=== PATIENT | male | born 1960 | race Caucasian/White ===

== ENCOUNTER → 2020-11-05 | Outpatient (CLI) | payer SELFPAY ==
[2020-11-05 20:09] LABS: African American GFR (CKD) 74.7 (60.0-200.0); Albumin 4.9 g/dL (3.80-4.90); Albumin/Globulin Ratio 2.04 (1.60-3.17); Anion Gap 8.4 mmol/L (4.00-12.00); BUN/Creat Ratio 10.83 Ratio (12.00-20.00); Calcium 9.9 mg/dL (8.7-10.3); Carbon Dioxide 31.6 mmol/L (21.6-31.8); Chol/HDL Ratio 3.81; Globulin 2.4 g/dL (1.6-3.3); LDL Cholesterol,Calculated 76.8 mg/dL (0.0-131.0); Non-African American GFR(CKD) 64.4 (60.0-200.0); Potassium 3.9 mmol/L (3.5-5.5); Total Bilirubin 0.6 mg/dL (0.2-1.2); Total Protein 7.3 g/dL (6.2-8.2); VLDL Calculation 41.2 mg/dL (5.00-40.00)
== END | disposition home or self-care (01) ==
LOC: LABWHC1 11:07 → MERGE 11:07
PROVIDERS: ATTEND Internal Medicine Interventional Cardiology
DX: E78.2 Mixed hyperlipidemia (principal)
CPT/HCPCS: 36415; 80053; 80061

== ENCOUNTER → 2021-05-24 | Outpatient (CLI) | payer SELFPAY ==
--- NOTE | 2021-05-24 09:15 | XR ---
EXAMINATION TYPE: XR chest 2V DATE OF EXAM: 05/24/2021 COMPARISON: NONE TECHNIQUE: PA and lateral views submitted. HISTORY: Shortness of breath FINDINGS: The lungs are clear and there is no pneumothorax, pleural effusion, or focal pneumonia. Hyperinflat ion. Hypertrophic and degenerative changes spine. Slightly coarsened interstitium. IMPRESSION: 1. COPD correlate for bronchitis or interstitial pneumonitis..
[2021-05-24 11:08] LABS: ALT 20 U/L (4-49); AST 24 U/L (17-59); African American GFR (CKD) >90 (>60 ml/min/1.73 sqM); Albumin 4.4 g/dL (3.5-5.0); Alkaline Phosphatase 126 U/L (38-126); Anion Gap 8 mmol/L; Blood Urea Nitrogen 11 mg/dL (9-20); Calcium 10.3 mg/dL (8.4-10.2); Carbon Dioxide 38 mmol/L (22-30); Chloride 89 mmol/L (98-107); Glucose 112 mg/dL (74-99); Non-African American GFR(CKD) 81 (>60 ml/min/1.73 sqM); Potassium 3.6 mmol/L (3.5-5.1); Sodium 135 mmol/L (137-145); Total Bilirubin 0.8 mg/dL (0.2-1.3); Total Protein 7.4 g/dL (6.3-8.2)
[2021-05-24 18:36] LABS: Cholesterol 128 mg/dL (0-200); LDL Cholesterol,Calculated 59.4 mg/dL (0.0-131.0)
== END | disposition home or self-care (01) ==
LOC: RADXRMAIN 08:29
PROVIDERS: ATTEND Internal Medicine Interventional Cardiology
DX: J44.9 Chronic obstructive pulmonary disease, unspecified (principal)
CPT/HCPCS: 71046; 80053; 80061

== ENCOUNTER → 2022-01-04 | Outpatient (CLI) | payer SELFPAY ==
[2022-01-04 14:35] LABS: ALT 22 U/L (10-49); AST 18 U/L (14-35); African American GFR (CKD) 82.4 (60.0-200.0); Albumin 4.4 g/dL (3.8-4.9); Albumin/Globulin Ratio 1.65 (1.60-3.17); Alkaline Phosphatase 103 U/L (41-126); BUN/Creat Ratio 8.95 Ratio (12.00-20.00); Blood Urea Nitrogen 9.9 mg/dL (9.0-27.0); Calcium 9.9 mg/dL (8.7-10.3); Carbon Dioxide 27.9 mmol/L (20.0-27.5); Chloride 100 mmol/L (96-109); Chol/HDL Ratio 3.61 Ratio; Globulin 2.7 g/dL (1.6-3.3); Glucose 107 mg/dL (70-110); LDL Cholesterol,Calculated 63.2 mg/dL (0.0-131.0); Non-African American GFR(CKD) 71.1 (60.0-200.0); Potassium 3.4 mmol/L (3.5-5.5); Sodium 139 mmol/L (135-145); Total Protein 7.1 g/dL (6.2-8.2)
== END | disposition home or self-care (01) ==
LOC: LABWHC1 09:12
PROVIDERS: ATTEND Nurse Practitioner Adult Health
DX: I10 Essential (primary) hypertension (principal); E78.2 Mixed hyperlipidemia
CPT/HCPCS: 36415; 80053; 80061

== ENCOUNTER → 2023-01-07 | Outpatient (CLI) | payer SELFPAY ==
[2023-01-07 17:35] LABS: ALT 39 U/L (10-49); AST 26 U/L (14-35); African American GFR (CKD) 73.6 (60.0-200.0); Albumin 4.4 g/dL (3.8-4.9); Albumin/Globulin Ratio 1.47 (1.60-3.17); Alkaline Phosphatase 121 U/L (41-126); BUN/Creat Ratio 10.17 Ratio (12.00-20.00); Blood Urea Nitrogen 12.2 mg/dL (9.0-27.0); Calcium 9.9 mg/dL (8.7-10.3); Carbon Dioxide 32.2 mmol/L (20.0-27.5); Chloride 97 mmol/L (96-109); Chol/HDL Ratio 3.44 Ratio; Glucose 93 mg/dL (70-110); LDL Cholesterol,Calculated 75.8 mg/dL (0.0-131.0); Non-African American GFR(CKD) 63.5 (60.0-200.0); Potassium 3.7 mmol/L (3.5-5.5); Sodium 140 mmol/L (135-145); Total Protein 7.3 g/dL (6.2-8.2)
== END | disposition home or self-care (01) ==
LOC: LABWHC1 10:00
PROVIDERS: ATTEND Internal Medicine Interventional Cardiology
DX: E78.2 Mixed hyperlipidemia (principal)
CPT/HCPCS: 36415; 80053; 80061

== ENCOUNTER → 2023-11-21 | Outpatient (CLI) | payer MEDICARE, OTHER ==
[2023-11-21 15:56] LABS: Chol/HDL Ratio 2.29 Ratio; LDL Cholesterol,Calculated 51.8 mg/dL (0.0-131.0); VLDL Calculation 16.42 mg/dL (5.00-40.00)
[2023-11-21 16:03] LABS: ALT 457 U/L (10-49); AST 312 U/L (14-35); Albumin 4.3 g/dL (3.8-4.9); Albumin/Globulin Ratio 1.59 Ratio (1.60-3.17); Alkaline Phosphatase 453 U/L (41-126); BUN/Creat Ratio 8.18 Ratio (12.00-20.00); Calcium 10.4 mg/dL (8.7-10.3); Carbon Dioxide 25.9 mmol/L (21.6-31.8); Chloride 100 mmol/L (96-109); Globulin 2.7 g/dL (1.6-3.3); Glucose 138 mg/dL (70-110); Potassium 3.9 mmol/L (3.5-5.5); Sodium 140 mmol/L (135-145); Total Bilirubin 4.9 mg/dL (0.3-1.2)
== END | disposition home or self-care (01) ==
LOC: LABWHC1 08:10
PROVIDERS: ATTEND Internal Medicine Interventional Cardiology
DX: E78.2 Mixed hyperlipidemia (principal)
CPT/HCPCS: 36415; 80053; 80061

== ENCOUNTER → 2023-12-05 | Outpatient (CLI) | payer MEDICARE, OTHER ==
[2023-12-05 11:58] LABS: ALT 56 U/L (4-49); AST 50 U/L (17-59); African American GFR (CKD) >90 (>60 ml/min/1.73 sqM); Albumin 3.5 g/dL (3.5-5.0); Albumin/Globulin Ratio 1.2; Alkaline Phosphatase 316 U/L (38-126); Amylase 106 U/L (30-110); Bilirubin,Unconjugated 0.5 mg/dL (0.0-1.1); Blood Urea Nitrogen 15 mg/dL (9-20); Calcium 9.2 mg/dL (8.4-10.2); Carbon Dioxide 29 mmol/L (22-30); Chloride 104 mmol/L (98-107); Glucose 115 mg/dL (74-99); Lipase 381 U/L (23-300); Non-African American GFR(CKD) 84 (>60 ml/min/1.73 sqM); Total Bilirubin 1.2 mg/dL (0.2-1.3); Total Protein 6.5 g/dL (6.3-8.2)
[2023-12-05 12:00] LABS: Potassium 3.7 mmol/L (3.5-5.1)
[2023-12-05 12:37] LABS: Anion Gap 5 mmol/L; Sodium 138 mmol/L (137-145)
[2023-12-05 16:46] LABS: HCT 45.9 % (39.6-50.0); HGB 15.1 g/dL (13.0-17.0); MCH 27.1 pg (27.0-32.0); MCHC 32.9 g/dL (32.0-37.0); MCV 82.3 FL (80.0-97.0); Mean Platelet Volume 9.9 FL (9.5-12.2); NRBC Per 100 WBC 0 X 10*3/uL (0.00-0.01); Platelet Count 248 X 10*3/uL (140-440); RBC 5.58 X 10*6/uL (4.40-5.60); RDW 14.3 % (11.5-14.5); WBC 7.67 X 10*3/uL (4.50-10.00)
[2023-12-05 17:07] LABS: Chol/HDL Ratio 3.69 Ratio; LDL Cholesterol,Calculated 64.5 mg/dL (0.0-131.0)
--- NOTE | 2023-12-07 10:40 | CT ---
EXAMINATION TYPE: CT abdomen pelvis w con CT DLP: 1135 mGycm, Automated exposure control for dose reduction was used. DATE OF EXAM: 12/05/2023 12:41 PM COMPARISON: CT abdomen pelvis 06/10/2023 CLINICAL INDICATION:Male, 63 years old with history of R10 abdominal pain; Abdominal pain, elevated L FTs TECHNIQUE: Axial CT of the abdomen and pelvis. Sagittal and coronal reformats were created on a [employer] workstation. Contrast used:100 mL of Isovue 300 with IV Contrast, (none if empty) Oral contrast used: with Oral Contrast FINDINGS: LOWER CHEST: Unremarkable ABDOMEN LIVER: Unremarkable GALLBLADDER AND BILE DUCTS: Gallbladder is contracted around innumerable small calcified gallstones. No significant biliary dilatation is seen. The CBD is about 5 mm. PANCREAS: Question minimal peripancreatic fat stranding. Pancreas enhances normally. SPLEEN: Unremarkable. ADRENAL GLANDS: Unremarkable. KIDNEYS AND URETERS: Kidneys enhance symmetrically. Stable 9 mm curvilinear calcification in the mid to inferior left kidney. No evidence of hydronephrosis. The ureters are unremarkable. PELVIS BLADDER: Mildly distended with mild generalized wall thickening. The base is indented by the enlarged prostate. REPRODUCTIVE: Prostate is again enlarged and heterogeneous in appearance. Measures up to 5.8 cm trans verse. ABDOMEN & PELVIS STOMACH AND BOWEL: Contrast traverses the stomach and small bowel without evidence of obstruction. Th e appendix appears within normal limits. There is contrast and stool within the proximal aspects of t he colon. In the region of the mid transverse colon, there is an abnormality seen which seems to repr esent a short segment of intussusception. This does not appear obstructing. An underlying mass cannot be excluded. Again there is a moderate sized left inguinal hernia which contains a segment of proxim al sigmoid colon without evidence of obstruction. There are several sigmoid region diverticula withou t evidence of diverticulitis. Small right inguinal hernia is again seen, predominantly fat containing with a minimal partial protrusion of contrast-containing small bowel at its base without evidence of obstruction. PERITONEUM/RETROPERITONEUM: No evidence of pneumoperitoneum or free fluid. VASCULATURE: Moderate mixed atherosclerotic disease throughout the aorta and branches. No evidence of AAA. Multiple mild to moderate stenoses of aortic branch vessels with no critical stenosis suggested . Portal veins are enhancing. Splenic vein is patent. LYMPH NODES: No gross evidence for lymphadenopathy. SOFT TISSUE/ABDOMINAL WALL: Please see description of inguinal hernias above. MUSCULOSKELETAL: No acute osseous abnormalities. Mild disc degeneration changes are present throughou t the thoracolumbar spine. IMPRESSION: 1. Contracted gallbladder containing numerous gallstones. No evidence of biliary dilatation. 2. Question minimal peripancreatic fat stranding. Correlate clinically with serum laboratory values to exclude possibility of mild pancreatitis. 3. Mildly distended bladder with mild generalized wall thickening, likely chronic related to the enl arged prostate. Correlate for superimposed cystitis. 4. Enlarged, heterogeneous prostate again noted. Clinical and PSA correlation recommended. 5. No evidence of bowel obstruction. 6. In the region of the mid transverse colon, there is an abnormality seen which seems to represent a short segment of intussusception which does not appear obstructing. An underlying mass cannot be ex cluded. Consider outpatient correlation with barium enema and/or colonoscopy. 7. Similar moderate sized left inguinal hernia which contains a segment of proximal sigmoid colon wi thout evidence of obstruction. Similar small right inguinal hernia, predominantly fat containing with a minimal partial protrusion of contrast-containing small bowel at its base without evidence of obst ruction. 8. Other chronic and likely incidental findings, as described above.
== END | disposition home or self-care (01) ==
LOC: RADCTMAIN 10:18
PROVIDERS: ATTEND Family Medicine
DX: K80.20 Calculus of gallbladder without cholecystitis without obstruction (principal); N32.89 Other specified disorders of bladder; E78.00 Pure hypercholesterolemia, unspecified; N40.0 Benign prostatic hyperplasia without lower urinary tract symptoms; I10 Essential (primary) hypertension; I48.91 Unspecified atrial fibrillation; M19.90 Unspecified osteoarthritis, unspecified site; K40.90 Unilateral inguinal hernia, without obstruction or gangrene, not specified as recurrent; R93.5 Abnormal findings on diagnostic imaging of other abdominal regions, including retroperitoneum; R79.89 Other specified abnormal findings of blood chemistry
CPT/HCPCS: 84153; 80061; 80053; 82150; 82248; 83690; 84443; 85027; 83036; 74177; 36415; Q9967

== ENCOUNTER → 2024-06-11 | Outpatient (CLI) | payer MEDICARE, OTHER ==
[2024-06-11 15:35] LABS: HCT 48.6 % (39.6-50.0); HGB 16.5 g/dL (13.0-17.0); MCH 27.6 pg (27.0-32.0); MCV 81.3 FL (80.0-97.0); Mean Platelet Volume 10.2 FL (9.5-12.2); NRBC Per 100 WBC 0 X 10*3/uL (0.00-0.01); Platelet Count 229 X 10*3/uL (140-440); RBC 5.98 X 10*6/uL (4.40-5.60); RDW 14.6 % (11.5-14.5)
[2024-06-11 19:25] LABS: ALT 26 U/L (10-49); AST 22 U/L (14-35); Albumin 4.3 g/dL (3.8-4.9); Albumin/Globulin Ratio 1.79 Ratio (1.60-3.17); Alkaline Phosphatase 184 U/L (41-126); BUN/Creat Ratio 11.36 Ratio (12.00-20.00); Blood Urea Nitrogen 12.5 mg/dL (9.0-27.0); Calcium 9.8 mg/dL (8.7-10.3); Carbon Dioxide 26.3 mmol/L (21.6-31.8); Chloride 100 mmol/L (96-109); Chol/HDL Ratio 2.52 Ratio; Globulin 2.4 g/dL (1.6-3.3); Glucose 110 mg/dL (70-110); LDL Cholesterol,Calculated 47.8 mg/dL (0.0-131.0); Potassium 3.8 mmol/L (3.5-5.5); Sodium 140 mmol/L (135-145); Total Bilirubin 0.8 mg/dL (0.3-1.2); Total Protein 6.7 g/dL (6.2-8.2)
== END | disposition home or self-care (01) ==
LOC: LABWHC1 12:05
PROVIDERS: ATTEND Internal Medicine Interventional Cardiology
DX: I10 Essential (primary) hypertension (principal); I48.0 Paroxysmal atrial fibrillation; E78.2 Mixed hyperlipidemia
CPT/HCPCS: 36415; 80053; 80061; 85027

== ENCOUNTER → 2024-06-19 | Outpatient (CLI) | payer MEDICARE, OTHER ==
--- NOTE | 2024-06-19 10:36 | CTL ---
EXAMINATION TYPE: CT Low Dose Lung DATE OF EXAM ORDERED: 06/19/2024 HISTORY: Personal history nicotine dependence, 70 pack-year history, quit 2018. Lung cancer screening CT DLP: 120.[address] CTDI: 2.8 mGy Automated exposure control for dose reduction was used. SCREENING VISIT: First screening visit COMPARISON: No direct comparisons. TECHNIQUE: Low dose computed tomography scan was performed through the chest at 1 mm thick sections a nd reconstructed images in multiple planes at 1 mm and [address] DIAGNOSTIC QUALITY: Satisfactory FINDINGS: Nodules: No clinically significant pulmonary nodules. LUNGS: COPD: Severity: Mild centrilobular emphysematous changes. Fibrosis: Severity: None Lymph nodes: None Other findings: Biapical pleural-parenchymal scarring. RIGHT PLEURAL SPACE: Effusion: None Calcification: None Thickening: None Pneumothorax: None LEFT PLEURAL SPACE: Effusion: None Calcification: None Thickening: None Pneumothorax: None HEART: Heart Size: Normal Coronary Calcification: Mild Pericardial Effusion: None OTHER FINDINGS: Upper abdomen: Contracted gallbladder containing gallstones. Bony thorax: None Supraclavicular region: None Other: Mild atherosclerotic calcification of the aorta and its branches. IMPRESSION: 1. No clinically significant pulmonary nodules. 2. Mild COPD changes. 3. Cholelithiasis. CT LUNG RAD AND CT CHEST RECOMMENDATION: Lung-Rad 1 Negative: Continue annual screening with LDCT in 12 months. S Modifier (other clinically significant findings): None
== END | disposition home or self-care (01) ==
LOC: RADCTMAIN 10:00
PROVIDERS: ATTEND Internal Medicine
DX: Z12.2 Encounter for screening for malignant neoplasm of respiratory organs (principal); J44.9 Chronic obstructive pulmonary disease, unspecified; K80.20 Calculus of gallbladder without cholecystitis without obstruction; Z87.891 Personal history of nicotine dependence
CPT/HCPCS: 71271

== ENCOUNTER 2025-02-19 17:37 | Inpatient (IN) | payer MEDICARE, OTHER ==
--- NOTE | 2025-02-19 18:03 | ED ---
GI Bleed HPI - General Source: patient, family, RN notes reviewed Mode of arrival: wheelchair Limitations: no limitations <Sindy Bobby - Last Filed: 02/19/25 18:02> <Evelio Diehl - Last Filed: 02/19/25 21:50> - General Chief complaint: GI Bleed Stated complaint: Blood in stool/LAURYN Time Seen by Provider: 02/19/25 17:50 - History of Present Illness Initial comments: Quick [id number] male with history of A-fib on Eliquis presented emergency department for complaints of bright red blood per rectum. Patient states that since this morning he has had multiple episodes of bright red blood filling the toilet. Denies abdominal pain, nausea, vomiting. (Sindy Bobby) Dictation was produced using [employer] dictation software. please excuse any grammatical, word or spelling errors. Chief Complaint: 64-year-old male presents to the emergency department for bright blood per rectum History of Present Illness: Patient emergency department 1 day history of bright red blood per rectum he takes Eliquis for cardiac dysrhythmia. Son at the bedside states that he does not have any history of A-fib. Since this morning he has had bright red blood per rectum. States that his stool is covered with blood. Denies any abdominal or night sweats The ROS documented in this emergency department record has been reviewed and confirmed by me. Those systems with pertinent positive or negative responses have been documented in the HPI. All other systems are other negative and/or noncontributory. (Evelio Diehl) - Related Data Home Medications Medication Instructions Recorded Confirmed Atorvastatin Calcium [Lipitor] 40 mg PO DAILY 06/04/23 06/04/23 EPINEPHrine [Primatene Mist] 1 puff INHALATION RT-Q4H PRN 06/04/23 06/04/23 Previous Rx's Medication Instructions Recorded Albuterol Inhaler [Ventolin Hfa 2 puff INHALATION Q6H PRN 30 Days 06/16/23 Inhaler] #1 each Apixaban [Eliquis] 5 mg PO BID #60 tab 06/16/23 Budesonide-Formot 160-4.5 Mcg 2 puff INHALATION BID 30 Days 06/16/23 [Symbicort 160-4.5 Mcg Inhaler] #10.2 gm Diltiazem Cd [Cardizem CD] 180 mg PO DAILY #30 cap 06/16/23 Losartan [Cozaar] 50 mg PO DAILY #30 tab 06/16/23 Mag Hydrox/Al Hydrox/Simeth 20 ml NG-TUBE QID ml 06/16/23 [Maalox] Magnesium Hydroxide [Milk of 1,200 mg PO QID PRN ml 06/16/23 Magnesia] Nystatin 100,000 Unit/ml Susp 500,000 unit PO QID 5 Days #100 ml 06/16/23 [Mycostatin Oral Susp] Sennosides [Senokot] 8.6 mg PO BID #60 tab 06/16/23 predniSONE 10 mg PO DIRECTED #30 tab 06/16/23 Allergies Allergy/AdvReac Type Severity Reaction Status Date / Time Penicillins Allergy Unknown Verified 02/19/25 17:42 Childhood Review of Systems ROS Other: All systems not noted in ROS Statement are negative. <Sindy Bobby - Last Filed: 02/19/25 18:02> ROS Other: All systems not noted in ROS Statement are negative. <Evelio Diehl - Last Filed: 02/19/25 21:50> ROS Statement: Those systems with pertinent positive or pertinent negative responses have been documented in the HPI. Past Medical History Past Medical History: COPD Additional Past Medical History / Comment(s): iireg heart rythym. Pt sees Dr Emery for his heart. Possible COPD, Ex smoker. History of Any Multi-Drug Resistant Organisms: None Reported Past Surgical History: Tonsillectomy Past Anesthesia/Blood Transfusion Reactions: No Reported Reaction Past Psychological History: No Psychological Hx Reported Smoking Status: Former smoker Past Alcohol Use History: None Reported Past Drug Use History: Marijuana - Past Family History Father Family Medical History: Myocardial Infarction (DE) Additional Family Medical History / Comment(s): Father from heart attack at 65 years old. Mother Family Medical History: Cancer Additional Family Medical History / Comment(s): Ovarian cancer <Sindy Bobby - Last Filed: 02/19/25 18:02> General Exam Limitations: no limitations <Sindy Bobby - Last Filed: 02/19/25 18:02> <Evelio Diehl - Last Filed: 02/19/25 21:50> - General Exam Comments Initial Comments: Visual Physical Exam Vital signs reviewed General: Well-appearing, nontoxic, no acute distress. Head: Normocephalic, atraumatic Eyes: PERRLA, EOMI ENT: Airway patent Chest: Nonlabored breathing Skin: No visual rash, normal skin tone Neuro: Alert and oriented 3 Musculoskeletal: No gross abnormalities (Sindy Bobby) PHYSICAL EXAM: General Impression: Alert and oriented x3, not in acute distress HEENT: Normocephalic atraumatic, extra-ocular movements intact, pupils equal and reactive to light bilaterally, mucous membranes moist. Cardiovascular: Heart regular rate and rhythm Chest: Able to complete full sentences, no retractions, no tachypnea Abdomen: abdomen soft, non-tender, non-distended, no organomegaly Musculoskeletal: Pulses present and equal in all extremities, no peripheral edema Motor: no focal deficits noted Neurological: CN II-XII grossly intact, no focal motor or sensory deficits noted Skin: Intact with no visualized rashes Psych: Normal affect and mood Rectal exam: Positive bright red blood, stool felt in the rectal vault, no palpatory tenderness (Evelio Diehl) Course Vital Signs 02/19/25 02/19/25 02/19/25 17:38 20:50 21:00 Temperature 97.9 F Pulse Rate 123 H 121 H 111 H Respiratory 24 24 20 Rate Blood Pressure 125/68 112/83 91/69 O2 Sat by Pulse 97 96 95 Oximetry 02/19/25 21:07 Temperature Pulse Rate 113 H Respiratory Rate Blood Pressure O2 Sat by Pulse Oximetry Medical Decision Making <Sindy Bobby - Last Filed: 02/19/25 18:02> - Lab Data Result diagrams: 02/19/25 18:12 02/19/25 18:12 <Evelio Diehl - Last Filed: 02/19/25 21:50> - Medical Decision Making I completed the quick note portion of this chart signed Sindy Bobby PA-C (Sindy Bobby) Was pt. sent in by a medical professional or institution ([facility], QUANTITATIVE MANAGER, urgent care, hospital, or custodial...) When possible be specific @ -No Did you speak to anyone other than the patient for history (EMS, parent, family, police, friend...)? What history was obtained from this source @ -No Did you review nursing and triage notes (agree or disagree)? Why? @ -I reviewed and agree with nursing and triage notes Were old charts reviewed (outside hosp., previous admission, EMS record, old EKG, old radiological studies, urgent care reports/EKG's, custodial records)? Report findings @ -No old charts were reviewed Differential Diagnosis (chest pain, altered mental status, abdominal pain women, abdominal pain men, vaginal bleeding, musculoskeletal, weakness, fever, dyspnea, syncope, headache, dizziness, GI bleed, back pain, seizure, CVA, palpatations, mental health)? @ -Differential GI Bleed: Esophageal varices, aortoenteric fistula, Monica-Mcallister, gastritis, peptic ulcer disease, diverticulosis, inflammatory bowel disease, hemorrhoids, fissure, colitis, malignancy, Meckel's diverticulum, this is not meant to be an all- inclusive list. EKG interpreted by me (3pts min.). @ -None done X-rays interpreted by me (1pt min.). @ -Pending CT interpreted by me (1pt min.). @ -None done U/S interpreted by me (1pt. min.). @ -None done What testing was considered but not performed or refused? (CT, X-rays, U/S, labs)? Why? @ -None What meds were considered but not given or refused? Why? @ -None Was smoking cessation discussed for >3mins.? @ -No Were there social determinants of health that impacted care today? How? (Homelessness, low income, unemployed, alcoholism, drug addiction, transportation, low edu. Level, literacy, decrease access to med. care, snf, rehab)? @ -No Was there de-escalation of care discussed even if they declined (Discuss DNR or withdrawal of care, Hospice)? DNR status @ -No What co-morbidities impacted this encounter? (DM, HTN, Smoking, COPD, CAD, Cancer, CVA, ARF, Chemo, Hep., AIDS, mental health diagnosis, sleep apnea, morbid obesity)? @ -copd Was patient admitted / discharged? Hospital course, mention meds given and route, prescriptions, significant lab abnormalities, going to OR and other pertinent info. @ -64-year-old male presents with 1 to 2-day history of bright red blood per rectum. Patient takes anticoagulation medications for unspecified cardiac issue. Vital signs otherwise stable. Laboratory evaluation obtained leukocyto sis 20.84. Stool occult blood positive. Hemoglobin today is 12.1. Hemoglobin from last year was 16.5. Suspect that there is a considerable decrease in blood loss. Patient given Protonix. Disposition options were discussed. Patient agreeable with admission with consultation to GI. Patient has severe COPD. He is having mild exacerbation. Given COPD meds. Pulmonology also consulted. Case discussed with hospitalist for admission Did you discuss the management of the patient with other professionals (professionals i.e. , PA, QUANTITATIVE MANAGER, lab, RT, psych nurse, family welfare social work professor, business specialist, teacher, landing signal officer, case maker)? Give summary @ -See above Was critical care preformed (if so, how long)? @ -No Undiagnosed new problem with uncertain prognosis? @ -No Drug Therapy requiring intensive monitoring for toxicity (Heparin, Nitro, Insulin, Cardizem)? @ -No Were any procedures done? @ -No Diagnosis/symptom? Acute, or Chronic, or Acute on Chronic? Uncomplicated (without systemic symptoms) or Complicated (systemic symptoms)? @ -Bright red blood per rectum, COPD exacerbation Side effects of treatment? @ -No Exacerbation, Progression, or Severe Exacerbation? @ -No Poses a threat to life or bodily function? How? (Chest pain, [place], [place], pneumonia, PE, COPD, DKA, ARF, appy, cholecystitis, CVA, Diverticulitis, Homicidal, Suicidal, threat to staff... and all critical care pts) @ -yes (Evelio Diehl) - Lab Data Lab Results 02/19/25 02/19/25 02/19/25 Range/Units 18:12 18:12 18:12 WBC 20.84 H (4.50-10.00) 10*3/uL RBC 4.81 (4.40-5.60) 10*6/uL Hgb 12.1 L (13.0-17.0) g/dL Hct 36.4 L (39.6-50.0) % MCV 75.7 L (80.0-97.0) fL MCH 25.2 L (27.0-32.0) pg MCHC 33.2 (32.0-37.0) g/dL Plt Count 368 (140-440) 10*3/uL MPV 9.9 (9.5-12.2) fL Immature Gran % (Auto) 0.6 % Neutrophils % 87.9 % Lymphocytes % 6.7 % Monocytes % 4.6 % Eosinophils % 0.0 % Basophils % 0.2 % Immature Gran # 0.12 H (0.00-0.04) 10*3/uL Neutrophils # 18.33 H (1.80-7.70) 10*3/uL Lymphocytes # 1.39 (0.90-5.00) 10*3/uL Monocytes # 0.95 (0.20-1.00) 10*3/uL Eosinophils # 0.01 L (0.04-0.35) 10*3/uL Basophils # 0.04 (0.00-0.10) 10*3/uL APTT 22.6 (22.0-30.0) sec Sodium (137-145) mmol/L Potassium (3.5-5.1) mmol/L Chloride (98-107) mmol/L Carbon Dioxide (22-30) mmol/L Anion Gap mmol/L BUN (9-20) mg/dL Creatinine (0.66-1.25) mg/dL Est GFR (CKD-EPI)AfAm (>60 ml/min/1.73 sqM) Est GFR (CKD-EPI)NonAf (>60 ml/min/1.73 sqM) Glucose (74-99) mg/dL Calcium (8.4-10.2) mg/dL Total Bilirubin (0.2-1.3) mg/dL AST (17-59) U/L ALT (4-49) U/L Alkaline Phosphatase (38-126) U/L Total Protein (6.3-8.2) g/dL Albumin (3.5-5.0) g/dL Lipase (23-300) U/L Stool Occult Blood Positive (Negative) 02/19/25 Range/Units 18:12 WBC (4.50-10.00) 10*3/uL RBC (4.40-5.60) 10*6/uL Hgb (13.0-17.0) g/dL Hct (39.6-50.0) % MCV (80.0-97.0) fL MCH (27.0-32.0) pg MCHC (32.0-37.0) g/dL Plt Count (140-440) 10*3/uL MPV (9.5-12.2) fL Immature Gran % (Auto) % Neutrophils % % Lymphocytes % % Monocytes % % Eosinophils % % Basophils % % Immature Gran # (0.00-0.04) 10*3/uL Neutrophils # (1.80-7.70) 10*3/uL Lymphocytes # (0.90-5.00) 10*3/uL Monocytes # (0.20-1.00) 10*3/uL Eosinophils # (0.04-0.35) 10*3/uL Basophils # (0.00-0.10) 10*3/uL APTT (22.0-30.0) sec Sodium 135 L (137-145) mmol/L Potassium 4.9 (3.5-5.1) mmol/L Chloride 100 (98-107) mmol/L Carbon Dioxide 23 (22-30) mmol/L Anion Gap 12 mmol/L BUN 17 (9-20) mg/dL Creatinine 1.29 H (0.66-1.25) mg/dL Est GFR (CKD-EPI)AfAm 67 (>60 ml/min/1.73 sqM) Est GFR (CKD-EPI)NonAf 58 (>60 ml/min/1.73 sqM) Glucose 160 H (74-99) mg/dL Calcium 9.8 (8.4-10.2) mg/dL Total Bilirubin 0.7 (0.2-1.3) mg/dL AST 24 (17-59) U/L ALT 34 (4-49) U/L Alkaline Phosphatase 135 H (38-126) U/L Total Protein 7.1 (6.3-8.2) g/dL Albumin 4.3 (3.5-5.0) g/dL Lipase 101 (23-300) U/L Stool Occult Blood (Negative) Disposition <Sindy Bobby - Last Filed: 02/19/25 18:02> Decision Time: 21:50 <Evelio Diehl - Last Filed: 02/19/25 21:50> Clinical Impression: BRBPR (bright red blood per rectum) Disposition: ADMITTED IP TO THIS HOSP Condition: Fair Referrals: Randal Castro MD [Primary Care Provider] - 1-2 days
[2025-02-19 18:59] LABS: Basophils # (A) 0.04 10*3/uL (0.00-0.10); Basophils % (A) 0.2 %; Eosinophils # (A) 0.01 10*3/uL (0.04-0.35); HCT 36.4 % (39.6-50.0); HGB 12.1 g/dL (13.0-17.0); Lymphocytes # (A) 1.39 10*3/uL (0.90-5.00); Lymphocytes % (A) 6.7 %; MCH 25.2 pg (27.0-32.0); MCHC 33.2 g/dL (32.0-37.0); MCV 75.7 fL (80.0-97.0); Mean Platelet Volume 9.9 fL (9.5-12.2); Monocytes # (A) 0.95 10*3/uL (0.20-1.00); Monocytes % (A) 4.6 %; Neutrophils # (A) 18.33 10*3/uL (1.80-7.70); Neutrophils % (A) 87.9 %; Platelet Count 368 10*3/uL (140-440); RBC 4.81 10*6/uL (4.40-5.60); RDW 16.4 % (11.5-14.5); WBC 20.84 10*3/uL (4.50-10.00)
[2025-02-19 19:07] LABS: ALT 34 U/L (4-49); AST 24 U/L (17-59); African American GFR (CKD) 67 (>60 ml/min/1.73 sqM); Albumin 4.3 g/dL (3.5-5.0); Alkaline Phosphatase 135 U/L (38-126); Anion Gap 12 mmol/L; Blood Urea Nitrogen 17 mg/dL (9-20); Calcium 9.8 mg/dL (8.4-10.2); Carbon Dioxide 23 mmol/L (22-30); Chloride 100 mmol/L (98-107); Glucose 160 mg/dL (74-99); Lipase 101 U/L (23-300); Non-African American GFR(CKD) 58 (>60 ml/min/1.73 sqM); Potassium 4.9 mmol/L (3.5-5.1); Sodium 135 mmol/L (137-145); Total Bilirubin 0.7 mg/dL (0.2-1.3); Total Protein 7.1 g/dL (6.3-8.2)
[2025-02-19] MEDS: IPRATROPIUM-ALBUTEROL 3 ML NEB INHALATION STA (20:58)
[2025-02-19] MEDS: DEXAMETHASONE SOD PHOSPHATE 10 MG/ML 1 ML VIAL IV STA (21:22)
[2025-02-19] MEDS ORDERED: NALOXONE 0.4 MG/ML 1 ML VIAL IV PRN (21:45)
--- NOTE | 2025-02-19 22:00 | XR ---
EXAMINATION TYPE: XR chest 1V portable DATE OF EXAM: 02/19/2025 9:55 PM COMPARISON: Chest radiographs from 06/13/2023. CLINICAL INDICATION: Male, 64 years old with history of copd; [facility] TECHNIQUE: XR chest 1V portable Frontal view of the chest. FINDINGS: Lungs/Pleura: There is flattening of the diaphragm with increased lucency of the lungs. No evidence o f pneumothorax, pleural effusion or focal consolidation. Pulmonary vascularity: Unremarkable. Heart/mediastinum: Cardiomediastinal silhouette is unremarkable. Musculoskeletal: No acute osseous pathology. Other findings: None IMPRESSION: 1. No acute cardiopulmonary disease process. 2. COPD changes. [facility], , 02/19/2025 9:58 PM
[2025-02-19] MEDS: SODIUM CHLORIDE 0.9% 1,000 ML IV SCH (22:02)
[2025-02-19] MEDS: AZITHROMYCIN 500 MG TAB PO SCH (22:06)
[2025-02-19] MEDS: PANTOPRAZOLE 40 MG/10 ML VIAL IVP STA (22:08)
[2025-02-19] MEDS: DILTIAZEM CD 180 MG CAP.ER.24H PO SCH (22:44)
[2025-02-19] MEDS: MELATONIN 1 MG TAB PO SCH (23:08)
--- NOTE | 2025-02-20 03:32 | P.CNPUL ---
History of Present Illness Consult date: 02/20/25 Requesting physician: Evelio Diehl Reason for consult: COPD Chief complaint: Bright red blood per rectum History of present illness: Patient is a 64-year-old male with past medical history significant for COPD, tobacco smoker, hypertension, atrial fibrillation normally anticoagulated on Eliquis.. He does follow in the pulmonary office with Dr. Hampton. He has severe COPD with an FEV1 45% of predicted. Normally maintained on Breo Ellipta maintenance inhaler as well as albuterol sulfate HFA inhaler as needed. Quit smoking cigarettes approximately 6 years ago. Comes into the emergency department yesterday evening with chief complaint of bright red blood per rectum. Noted to be short of breath in the ED, and his COPD was felt to be an exacerbation. A pulmonary consultation was placed for this reason. Workup in the emergency department including a chest x-ray showing flattening of the diaphragms and hyperinflation consistent with COPD no focal consolidations, pleural effusions, or pneumothoraces. CBC, with a WBC count of 21, hemoglobin 12.1, platelets 368. CMP: Sodium 135, potassium 4.9, chloride 100, serum bicarb 23, BUN 17, creatinine 1.29, glucose 160. LFTs unremarkable. EKG: Sinus tachycardia, rate 125 bpm, RBBB pattern. Stool occult was positive. GI services will see him for this. He is currently being evaluated emergency department room 23. He is resting comfortably on room air. Does not appear in any distress. Some minimal expiratory wheezes heard on auscultation. States his breathing is improved since receiving some breathing treatments down here in the ER. Denies any recent sick contacts. Denies any infectious symptoms. Endorses chronic cough, not much different from baseline. Denies any purulent sputum production. Denies fever/chills. Denies chest pain, heart palpitations, syncopal events, lower extremity edema. He has had 1 bright red bowel movements since being in the emergency department. While at home, yesterday, he had several bloody bowel movements, approximately once every hour of bright red blood. He has never had a colonoscopy in the past. Denies any hemorrhoids. Denies any rectal pain. Denies nausea, vomiting, hematemesis. Denies abdominal pain. Eliquis is currently on hold. Bedside telemetry appears sinus mechanism, rate 88 bpm. current vital signs: Heart rate 88 bpm, blood pressure 132/74 mmHg, SpO2 recording at 92% on room air. Review of Systems Constitutional: Denies chills, Denies fatigue, Denies fever, Denies night sweats, Denies poor appetite, Denies weight gain, Denies weight loss Ears, nose, mouth and throat: Denies headache, Denies nasal congestion, Denies nasal discharge, Denies post-nasal drip, Denies sinus pain, Denies sinus pressure, Denies sore throat Cardiovascular: Reports shortness of breath, Denies chest pain, Denies leg edema, Denies lightheadedness, Denies orthopnea, Denies palpitations, Denies paroxysmal nocturnal dyspnea, Denies syncope Respiratory: Reports as per HPI Gastrointestinal: Reports as per HPI Genitourinary: Denies dysuria, Denies hematuria Musculoskeletal: Denies limitation of motion Integumentary: Denies rash Neurological: Denies seizures, Denies syncope Psychiatric: Denies anxiety, Denies depression Past Medical History Past Medical History: COPD Additional Past Medical History / Comment(s): iireg heart rythym. Pt sees Dr Emery for his heart. Possible COPD, Ex smoker. History of Any Multi-Drug Resistant Organisms: None Reported Past Surgical History: Tonsillectomy Past Anesthesia/Blood Transfusion Reactions: No Reported Reaction Past Psychological History: No Psychological Hx Reported Smoking Status: Former smoker Past Alcohol Use History: None Reported Past Drug Use History: Marijuana - Past Family History Father Family Medical History: Myocardial Infarction ([place]) Additional Family Medical History / Comment(s): Father from heart attack at 65 years old. Mother Family Medical History: Cancer Additional Family Medical History / Comment(s): Ovarian cancer Medications and Allergies Home Medications Medication Instructions Recorded Confirmed Type Atorvastatin Calcium [Lipitor] 40 mg PO DAILY 06/04/23 06/04/23 History EPINEPHrine [Primatene Mist] 1 puff INHALATION RT-Q4H PRN 06/04/23 06/04/23 History Albuterol Inhaler [Ventolin Hfa 2 puff INHALATION Q6H PRN 30 Days 06/16/23 Rx Inhaler] #1 each Apixaban [Eliquis] 5 mg PO BID #60 tab 06/16/23 Rx Budesonide-Formot 160-4.5 Mcg 2 puff INHALATION BID 30 Days 06/16/23 Rx [Symbicort 160-4.5 Mcg Inhaler] #10.2 gm Diltiazem Cd [Cardizem CD] 180 mg PO DAILY #30 cap 06/16/23 Rx Losartan [Cozaar] 50 mg PO DAILY #30 tab 06/16/23 Rx Mag Hydrox/Al Hydrox/Simeth 20 ml NG-TUBE QID ml 06/16/23 Rx [Maalox] Magnesium Hydroxide [Milk of 1,200 mg PO QID PRN ml 06/16/23 Rx Magnesia] Nystatin 100,000 Unit/ml Susp 500,000 unit PO QID 5 Days #100 ml 06/16/23 Rx [Mycostatin Oral Susp] Sennosides [Senokot] 8.6 mg PO BID #60 tab 06/16/23 Rx predniSONE 10 mg PO DIRECTED #30 tab 06/16/23 Rx Allergies Allergy/AdvReac Type Severity Reaction Status Date / Time Penicillins Allergy Unknown Verified 02/19/25 17:42 Childhood Physical Exam Vitals: Vital Signs Temp Pulse Resp BP Pulse Ox 02/20/25 00:00 98 18 121/80 95 02/19/25 22:00 109 H 20 123/76 95 02/19/25 21:07 113 H 02/19/25 21:00 111 H 20 91/69 95 02/19/25 20:50 121 H 24 112/83 96 02/19/25 17:38 97.9 F 123 H 24 125/68 97 Intake and Output 02/19/25 02/19/25 02/20/25 14:59 22:59 06:59 Other: Weight 77.111 kg GENERAL EXAM: Alert, 64 years old male, comfortable in no apparent distress. HEAD: Normocephalic and atraumatic EYES: Normal reaction of pupils, equal size. NOSE: Clear with pink turbinates. THROAT: No erythema or exudates. NECK: No masses, no JVD. CHEST: No chest wall deformity. LUNGS: Equal air entry with minimal expiratory wheezes heard bilaterally and throughout. On room air. No conversational dyspnea or accessory muscle use.. CVS: S1 and S2 normal with no audible murmur, regular rhythm. No extra heart sounds ABDOMEN: No hepatosplenomegaly, active bowel sounds, no guarding or rigidity. SPINE: No scoliosis or deformity SKIN: No rashes CENTRAL NERVOUS SYSTEM: No focal deficits, tone is normal in all 4 extremities. EXTREMITIES: There is no peripheral edema, clubbing, or cyanosis. Peripheral pulses are intact. Results - Laboratory Findings CBC and BMP: 02/19/25 18:12 02/19/25 18:12 Abnormal lab findings: Abnormal Labs 02/19/25 02/19/25 18:12 18:12 WBC 20.84 H Hgb 12.1 L Hct 36.4 L MCV 75.7 L MCH 25.2 L Immature Gran # 0.12 H Neutrophils # 18.33 H Eosinophils # 0.01 L Sodium 135 L Creatinine 1.29 H Glucose 160 H Alkaline Phosphatase 135 H - Diagnostic Findings Chest x-ray: image reviewed Assessment and Plan Assessment: Hematochezia Acute COPD exacerbation, chest x-ray showing flattening of the diaphragms and hyperinflation consistent with COPD no focal consolidations, pleural effusions, or pneumothoraces Acute dyspnea, secondary to above, chest x-ray Acute leukocytosis, possibly reactive Acute kidney injury, creatinine 1.29 Severe chronic obstructive pulmonary disease with an FEV1 45% of predicted at baseline. Normally maintained on a combination of Breo Ellipta maintenance inhaler, as well as, albuterol sulfate HFA inhaler as needed. History of paroxysmal atrial fibrillation, anticoagulated normally on Eliquis, currently sinus mechanism Hypertension History of hyperlipidemia Former tobacco dependence, quit smoking cigarettes approximately 6 years ago Plan: Patient's medications, labs, chest x-ray reviewed Currently on room air Continue DuoNeb treatments [id number], Symbicort Hailer, and IV Solu- Medrol Previously started on empiric azithromycin in the ED Eliquis is currently on hold Currently n.p.o. GI services consulted Hemodynamically stable at this time No need for ICU placement We will continue to follow I have personally seen and examined the patient, performed the documentation and the assessment and plan as written. Number of minutes spent on the visit:20 This dictation was produced using [employer] dictation software please excuse grammatical errors Time with Patient: Greater than 30
[2025-02-20] MEDS: guaiFENesin-DM 100-10MG/5ML 10 ML CUP PO PRN (04:13)
[2025-02-20] MEDS: methylPREDNISolone SOD SUCCI 125 MG/2 ML VIAL IV SCH (05:45)
[2025-02-20] MEDS: SYMBICORT 160-4.5 MCG INHALER INHALATION SCH (08:13)
[2025-02-20] MEDS: IPRATROPIUM-ALBUTEROL 3 ML NEB INHALATION SCH (08:13)
[2025-02-20] MEDS: PANTOPRAZOLE 40 MG/10 ML VIAL IVP SCH (08:36)
[2025-02-20 09:23] LABS: HCT 29.9 % (39.6-50.0); MCH 25.3 pg (27.0-32.0); MCHC 33.4 g/dL (32.0-37.0); MCV 75.7 fL (80.0-97.0); Mean Platelet Volume 9.7 fL (9.5-12.2); Platelet Count 302 10*3/uL (140-440); RBC 3.95 10*6/uL (4.40-5.60); RDW 16.5 % (11.5-14.5); WBC 15.75 10*3/uL (4.50-10.00)
[2025-02-20 09:51] LABS: African American GFR (CKD) 72 (>60 ml/min/1.73 sqM); Anion Gap 11 mmol/L; Blood Urea Nitrogen 19 mg/dL (9-20); Calcium 9.3 mg/dL (8.4-10.2); Carbon Dioxide 22 mmol/L (22-30); Chloride 103 mmol/L (98-107); Glucose 161 mg/dL (74-99); Non-African American GFR(CKD) 62 (>60 ml/min/1.73 sqM); Potassium 4.1 mmol/L (3.5-5.1); Sodium 136 mmol/L (137-145)
[2025-02-20] MEDS ORDERED: IOPAMIDOL CONTRAST (ORAL USE) VIAL PO PRN (10:26)
--- NOTE | 2025-02-20 12:27 | CT ---
EXAMINATION TYPE: CT abdomen pelvis w con CT DLP: 889.1 mGycm, Automated exposure control for dose reduction was used. DATE OF EXAM: 02/20/2025 12:16 PM COMPARISON: CT abdomen pelvis 12/05/2023, 06/10/2023. CLINICAL INDICATION:Male, 64 years old with history of Lower GI hemorrhage, abdominal pain; Bright re d blood in stool, patient on eloquis. TECHNIQUE: Standard CT of the abdomen and pelvis following the administration of 100 cc of Isovue 3 00 IV contrast material and oral contrast. Coronal and sagittal reformats were performed. FINDINGS: LOWER CHEST: Centrilobular emphysematous changes without focal consolidation. Trace anterior pericard ial effusion. ABDOMEN LIVER: Unremarkable GALLBLADDER AND BILE DUCTS: Layering increased densities within the lumen consistent with gallstones are present. No biliary ductal dilatation. PANCREAS: Unremarkable. SPLEEN: Unremarkable. ADRENAL GLANDS: Unremarkable. KIDNEYS AND URETERS: No evidence of hydronephrosis. No right renal calculus. Left renal lower pole ca lculi which may represent renal vascular calcifications. The kidneys enhance symmetrically. Contrast is demonstrated within both collecting systems and proximal ureters on the delayed phase. PELVIS BLADDER: Unremarkable REPRODUCTIVE: Prostate is enlarged in size measuring 5.9 cm in transverse dimension. There is median lobe hypertrophy which indents upon the urinary bladder base. The right anterior tip of the urinary b ladder extends into the right inguinal hernia. ABDOMEN & PELVIS STOMACH AND BOWEL: Nonobstructing sigmoid and descending colon extending into a large left inguinal h ernia. Few sigmoid diverticula without evidence for acute diverticulitis. Enteric contrast reaches th e distal small bowel. Dilated gas and enteric contrast filled small bowel identified measuring up to 3.2 cm. There is collapse of the terminal ileum. No focal transition point identified. No wall thicke joyce or surrounding inflammatory changes of the bowel. The appendix is within normal limits. Gas is i dentified within the remaining colon and rectum. Presence of enteric contrast significantly limits ev aluation for active GI bleed. PERITONEUM: No evidence of pneumoperitoneum or free fluid. VASCULATURE: Moderate atherosclerotic calcifications are present throughout the abdominal aorta and i ts branches. No evidence of aortic aneurysm. MUSCULOSKELETAL: No acute osseous abnormalities LYMPH NODES: No evidence for lymphadenopathy. SOFT TISSUE/ABDOMINAL WALL: Inguinal hernia containing fat and the anterior tip of the urinary bladde r. Large left inguinal hernia containing nonobstructing sigmoid/descending colon. IMPRESSION: 1. Dilated gas and enteric contrast filled small bowel without focal transition point. Gas is identi fied to the remaining colon and rectum. Findings suggest ileus. Presence of enteric contrast signific antly limits evaluation for active GI bleed. 2. Large left inguinal hernia containing nonobstructing sigmoid/descending colon. Additionally right inguinal hernia containing fat and anterior right tip of the urinary bladder. 3. Sigmoid diverticulosis without evidence for acute diverticulitis. 4. Prostatomegaly with median lobe hypertrophy which indents upon the urinary bladder base. 5. Cholelithiasis. 6. Emphysematous changes. [facility], , 02/20/2025 12:25 PM
[2025-02-20] MEDS ORDERED: ALBUTEROL NEBULIZED 2.5 MG/3 ML INHALATION PRN (13:10)
--- NOTE | 2025-02-20 13:10 | P.HPIM ---
History of Present Illness Patient 64-year-old male came in with complaints of bright red blood per rectum. Patient does have history of COPD apparently patient was in COPD exacerbation when he came in was started on systemic steroids inhalational treatments. Patient is not wheezing at this time patient is on room air at this time. Patient is on Eliquis at home for paroxysmal atrial fibrillation. Patient is presently sinus rhythm. Patient does have leukocytosis with white count of 15,000 came down from 20,000. Patient has COPD with FEV1 of 45%. CT of the abdomen was done which showed findings consistent with ileus and a large inguinal hernia sigmoid diverticulosis without any diverticulitis and prostatomegaly and incidental finding of cholelithiasis. REVIEW OF SYSTEMS: All other systems are negative except those mentioned in the HPI PHYSICAL EXAMINATION: GENERAL: The patient is alert and oriented x3, not in any acute distress. Well d eveloped, well nourished. HEENT: Pupils are round and equally reacting to light. EOMI. No scleral icterus. No conjunctival pallor. Normocephalic, atraumatic. No pharyngeal erythema. No thyromegaly. CARDIOVASCULAR: S1 and S2 present. No murmurs, rubs, or gallops. PULMONARY: Chest is clear to auscultation, no wheezing or crackles. ABDOMEN: Soft, nontender, nondistended, normoactive bowel sounds. No palpable organomegaly. MUSCULOSKELETAL: No joint swelling or deformity. EXTREMITIES: No cyanosis, clubbing, or pedal edema. NEUROLOGICAL: Gross neurological examination did not reveal any focal deficits. SKIN: No rashes. Assessment and plan -Lower GI bleed probably diverticular bleed hold off anticoagulation gastroenterology will evaluate the patient - Incidental finding of ileus and gallstones without any symptoms of cholecystitis General Surgery consult COPD with acute exacerbation on admission which resolved at this time systemic steroids will be discontinued patient will be started on inhaled steroids inhalational treatments. - Paroxysmal atrial fibrillation presently sinus rhythm hold off anticoagulation temporarily because of acute GI bleed - Marijuana use - Leukocytosis: Can be reactive I did not see any clear infection at this time -Mild acute renal failure secondary to GI bleed patient was started on IV fluids DVT prophylaxis: Early ambulation Past Medical History Past Medical History: Atrial Flutter, COPD Additional Past Medical History / Comment(s): iireg heart rythym. Pt sees Dr Emery for his heart. COPD, Ex smoker. History of Any Multi-Drug Resistant Organisms: None Reported Past Surgical History: Tonsillectomy Past Anesthesia/Blood Transfusion Reactions: No Reported Reaction Past Psychological History: No Psychological Hx Reported Smoking Status: Former smoker Past Alcohol Use History: None Reported Past Drug Use History: Marijuana Additional Drug Use History / Comment(s): Current daily marajuana smoker. - Past Family History Father Family Medical History: Myocardial Infarction ([place]) Additional Family Medical History / Comment(s): Father from heart attack at 65 years old. Mother Family Medical History: Cancer Additional Family Medical History / Comment(s): Ovarian cancer Medications and Allergies Home Medications Medication Instructions Recorded Confirmed Type Atorvastatin Calcium [Lipitor] 40 mg PO DAILY 06/04/23 02/20/25 History Albuterol Inhaler [Ventolin Hfa 2 puff INHALATION Q6H PRN 30 Days 06/16/23 02/20/25 Rx Inhaler] #1 each Apixaban [Eliquis] 5 mg PO BID #60 tab 06/16/23 02/20/25 Rx Diltiazem Cd [Cardizem CD] 180 mg PO DAILY #30 cap 06/16/23 02/20/25 Rx Losartan [Cozaar] 50 mg PO DAILY #30 tab 06/16/23 02/20/25 Rx Fluticasone/Vilanterol [Breo 1 puff INHALATION RT-DAILY 02/20/25 02/20/25 History Ellipta 200-25 Mcg Inhaler] Allergies Allergy/AdvReac Type Severity Reaction Status Date / Time Penicillins Allergy Unknown Verified 02/20/25 08:24 Childhood Physical Exam Vitals: Vital Signs Temp Pulse Pulse Resp BP BP Pulse Ox 02/20/25 12:29 92 02/20/25 12:20 87 02/20/25 08:23 92 02/20/25 08:13 88 02/20/25 04:14 98.9 F 88 18 128/69 92 L 02/20/25 00:00 98 18 121/80 95 02/19/25 22:00 109 H 20 123/76 95 02/19/25 21:07 113 H 02/19/25 21:00 111 H 20 91/69 95 02/19/25 20:50 121 H 24 112/83 96 02/19/25 17:38 97.9 F 123 H 24 125/68 97 Intake and Output 02/19/25 02/20/25 02/20/25 22:59 06:59 14:59 Other: # Voids 1 Weight 77.111 kg 77.111 kg Results CBC & Chem 7: 02/20/25 09:04 02/20/25 09:04 Labs: Abnormal Lab Results - Last 24 Hours (Table) 02/19/25 02/19/25 02/20/25 Range/Units 18:12 18:12 09:04 WBC 20.84 H 15.75 H (4.50-10.00) 10*3/uL RBC 3.95 L (4.40-5.60) 10*6/uL Hgb 12.1 L 10.0 L D (13.0-17.0) g/dL Hct 36.4 L 29.9 L (39.6-50.0) % MCV 75.7 L 75.7 L (80.0-97.0) fL MCH 25.2 L 25.3 L (27.0-32.0) pg Immature Gran # 0.12 H (0.00-0.04) 10*3/uL Neutrophils # 18.33 H (1.80-7.70) 10*3/uL Eosinophils # 0.01 L (0.04-0.35) 10*3/uL Sodium 135 L (137-145) mmol/L Creatinine 1.29 H (0.66-1.25) mg/dL Glucose 160 H (74-99) mg/dL Alkaline Phosphatase 135 H (38-126) U/L 02/20/25 Range/Units 09:04 WBC (4.50-10.00) 10*3/uL RBC (4.40-5.60) 10*6/uL Hgb (13.0-17.0) g/dL Hct (39.6-50.0) % MCV (80.0-97.0) fL MCH (27.0-32.0) pg Immature Gran # (0.00-0.04) 10*3/uL Neutrophils # (1.80-7.70) 10*3/uL Eosinophils # (0.04-0.35) 10*3/uL Sodium 136 L (137-145) mmol/L Creatinine (0.66-1.25) mg/dL Glucose 161 H (74-99) mg/dL Alkaline Phosphatase (38-126) U/L Thrombosis Risk Factor Assmnt - Choose All That Apply Any of the Below Risk Factors Present?: Yes Each Factor Represents 1 point: Abnormal pulmonary function (COPD) Other Risk Factors: Yes Each Risk Factor Represents 2 Points: Age 61-74 years Thrombosis Risk Factor Assessment Total Risk Factor Score: 3 Thrombosis Risk Factor Assessment Level: Moderate Risk
--- NOTE | 2025-02-20 14:20 | P.CONS ---
History of Present Illness - Reason for Consult Consult date: 02/20/25 Bright red blood per rectum Requesting physician: Evelio Diehl - Chief Complaint Bright red blood per rectum - History of Present Illness This a pleasant 64-year-old male who presented to the emergency department after having multiple episodes of bright red blood per rectum. Symptoms started yesterday morning and continued throughout the day and admits to having up to 8- 9 episodes of bloody stool and blood per rectum. Last episode of bleeding was around 7 PM yesterday. He does state that he had bloody bowel movements couple weeks before Delmi but it only happened twice that day those were bright red as well. He did not have any evaluation at that time. He has not had any previous colonoscopy. He does have a history of atrial fibrillation on Eliquis and COPD. Last Eliquis was Monday evening. States that he is passing gas this morning but no blood. He denies any abdominal pain, nausea or vomiting. Admitting labs WBC 20.8 hemoglobin 12.1 hematocrit 36 platelet count 368,000 sodium 135 potassium 4.9 BUN 17 creatinine 1.2 total bilirubin 0.7 AST 24 ALT 34 alkaline phosphatase 135 lipase 104 today's repeat labs some improvement in leukocytosis to 15.7 hemoglobin 10.0 platelet count 302,000. Patient denies any fevers or chills. He has been afebrile. Denies any sick contacts or diarrhea prior to his bleeding yesterday. Review of Systems REVIEW OF SYSTEMS: CARDIOPULMONARY: No chest pain chronic shortness of breath. Gastrointestinal: No abdominal pain. No nausea or vomiting. No hematemesis, coffee-ground emesis. Bright red blood per rectum. GENITOURINARY: No dysuria or hematuria. MUSCULOSKELETAL: Reports normal range of motion. SKIN: No rashes. No jaundice. ENDOCRINE: No chills, fevers. No excessive weight gain or loss. No polydipsia or polyuria. PSYCHIATRIC: Unremarkable. NEUROLOGY: No change in mental status. Denies dizziness, headache. ENT: Vision unremarkable. CONSTITUTIONAL: No recent weight loss. No fever, chills, night sweats. Past Medical History Past Medical History: Atrial Flutter, COPD Additional Past Medical History / Comment(s): iireg heart rythym. Pt sees Dr Emery for his heart. COPD, Ex smoker. History of Any Multi-Drug Resistant Organisms: None Reported Past Surgical History: Tonsillectomy Past Anesthesia/Blood Transfusion Reactions: No Reported Reaction Past Psychological History: No Psychological Hx Reported Smoking Status: Former smoker Past Alcohol Use History: None Reported Past Drug Use History: Marijuana Additional Drug Use History / Comment(s): Current daily marajuana smoker. - Past Family History Father Family Medical History: Myocardial Infarction ([place]) Additional Family Medical History / Comment(s): Father from heart attack at 65 years old. Mother Family Medical History: Cancer Additional Family Medical History / Comment(s): Ovarian cancer Medications and Allergies Home Medications Medication Instructions Recorded Confirmed Type Atorvastatin Calcium [Lipitor] 40 mg PO DAILY 06/04/23 02/20/25 History Albuterol Inhaler [Ventolin Hfa 2 puff INHALATION Q6H PRN 30 Days 06/16/23 02/20/25 Rx Inhaler] #1 each Apixaban [Eliquis] 5 mg PO BID #60 tab 06/16/23 02/20/25 Rx Diltiazem Cd [Cardizem CD] 180 mg PO DAILY #30 cap 06/16/23 02/20/25 Rx Losartan [Cozaar] 50 mg PO DAILY #30 tab 06/16/23 02/20/25 Rx Fluticasone/Vilanterol [Breo 1 puff INHALATION RT-DAILY 02/20/25 02/20/25 History Ellipta 200-25 Mcg Inhaler] Allergies Allergy/AdvReac Type Severity Reaction Status Date / Time Penicillins Allergy Unknown Verified 02/20/25 08:24 Childhood Physical Exam Vitals: Vital Signs Temp Pulse Pulse Resp BP BP Pulse Ox 02/20/25 12:29 92 02/20/25 12:20 87 02/20/25 08:23 92 02/20/25 08:13 88 02/20/25 04:14 98.9 F 88 18 128/69 92 L 02/20/25 00:00 98 18 121/80 95 02/19/25 22:00 109 H 20 123/76 95 02/19/25 21:07 113 H 02/19/25 21:00 111 H 20 91/69 95 02/19/25 20:50 121 H 24 112/83 96 02/19/25 17:38 97.9 F 123 H 24 125/68 97 Intake and Output 02/19/25 02/20/25 02/20/25 22:59 06:59 14:59 Other: # Voids 1 Weight 77.111 kg 77.111 kg General appearance: The patient is alert, oriented, appears in no acute distr ess. HET: Head is normocephalic and atraumatic. Conjunctiva pink. Sclera anicteric. Neck: Supple without lymphadenopathy. Trachea midline. Heart: Regular. Lungs: Equal expansion, normal respiratory effort. Abdomen: Soft, nontender, nondistended. Skin: No rashes. No jaundice. Extremities: Normal skin color and turgor. No pedal edema. Neurological: No focal deficits. Alert and oriented x3. Results CBC & Chem 7: 02/20/25 09:04 02/20/25 09:04 Labs: Abnormal Lab Results - Last 24 Hours (Table) 02/19/25 02/19/25 02/20/25 Range/Units 18:12 18:12 09:04 WBC 20.84 H 15.75 H (4.50-10.00) 10*3/uL RBC 3.95 L (4.40-5.60) 10*6/uL Hgb 12.1 L 10.0 L D (13.0-17.0) g/dL Hct 36.4 L 29.9 L (39.6-50.0) % MCV 75.7 L 75.7 L (80.0-97.0) fL MCH 25.2 L 25.3 L (27.0-32.0) pg Immature Gran # 0.12 H (0.00-0.04) 10*3/uL Neutrophils # 18.33 H (1.80-7.70) 10*3/uL Eosinophils # 0.01 L (0.04-0.35) 10*3/uL Sodium 135 L (137-145) mmol/L Creatinine 1.29 H (0.66-1.25) mg/dL Glucose 160 H (74-99) mg/dL Alkaline Phosphatase 135 H (38-126) U/L 02/20/25 Range/Units 09:04 WBC (4.50-10.00) 10*3/uL RBC (4.40-5.60) 10*6/uL Hgb (13.0-17.0) g/dL Hct (39.6-50.0) % MCV (80.0-97.0) fL MCH (27.0-32.0) pg Immature Gran # (0.00-0.04) 10*3/uL Neutrophils # (1.80-7.70) 10*3/uL Eosinophils # (0.04-0.35) 10*3/uL Sodium 136 L (137-145) mmol/L Creatinine (0.66-1.25) mg/dL Glucose 161 H (74-99) mg/dL Alkaline Phosphatase (38-126) U/L Assessment and Plan (1) BRBPR (bright red blood per rectum) Narrative/Plan: 64-year-old male on anticoagulation for atrial fibrillation presents with bright red blood per rectum times several episodes Now resolved. This was painless rectal bleeding, patient had abnormal CAT scan with his last admission in November. Repeat CT abdomen pelvis with contrast ordered and reviewed. Possible ileus, diverticulosis without evidence of diverticulitis. Likely were dealing with possible diverticular bleed he has had no prior colonoscopy. Will await further evaluation recommendations from general surgery but possible colonoscopy tomorrow. Current Visit: Yes Status: Acute Code(s): K62.5 - HEMORRHAGE OF ANUS AND RECTUM SNOMED Code(s): 33058482 (2) Atrial fibrillation Current Visit: Yes Status: Acute Code(s): I48.91 - UNSPECIFIED ATRIAL FIBRILLATION SNOMED Code(s): 22350806 (3) Ileus Current Visit: Yes Status: Acute Code(s): K56.7 - ILEUS, UNSPECIFIED SNOMED Code(s): 125051486 (4) Diverticulosis Current Visit: Yes Status: Acute Code(s): K57.90 - DVRTCLOS OF INTEST, PART UNSP, W/O PERF OR ABSCESS W/O BLEED SNOMED Code(s): 404110594 Plan: 1. Continue symptomatic and supportive care 2. CT abdomen pelvis with contrast ordered 3. Patient may have clear liquid diet, n.p.o. after midnight 4. Daily CBC, transfuse for hemoglobin less than 7 5. Protonix 40 mg daily for GI prophylaxis 6. Possible colonoscopy tomorrow pending clinical course Thank you for this consultation, we will continue to follow. Dr. Ignacio Ayon I agree with the dictator's note, documented as a scribe by Fatou Villagran.
--- NOTE | 2025-02-20 15:45 | P.GSCN ---
History of Present Illness Consult date: 02/20/25 History of present illness: CHIEF COMPLAINT: GI bleed HISTORY OF PRESENT ILLNESS: This is a 64-year-old male who presented to the hospital with complaints of a GI bleed. He had bright red blood per rectum that started Monday night. He reports he had about 10 episodes of bleeding. His last episode of of bleeding was around 7:00 last night in the ER. Patient repor ts that he had been passing stool with the bleeding. He denies any abdominal pain. Denies any nausea or vomiting. He reports no prior history of colonoscopy. His hemoglobin stable at 10. He had a CT scan abdomen and pelvis completed that had reported an ileus and bilateral inguinal hernias. Surgical service consulted in regards to ileus. Patient does report a prior history of an ileus and blockage in 2022. Denies any prior abdominal surgeries. He reports that the left inguinal hernia has been present for about 45 years after an injury where he had been straining to lift a wall. He also reports that the right inguinal hernia has been present as well for a few years. He does take El iquis at home for his atrial fibrillation. Last dose of Eliquis was Monday. PAST MEDICAL HISTORY: See below PAST SURGICAL HISTORY: See below MEDICATIONS: See below ALLERGIES: See below SOCIAL HISTORY: No illicit drug use. REVIEW OF SYSTEMS: CONSTITUTIONAL: Denies fever or chills. HEENT: Denies blurred vision, vision changes, or eye pain. Denies hemoptysis CARDIOVASCULAR: Denies chest pain or pressure. RESPIRATORY: No shortness of breath. GASTROINTESTINAL: See HPI for pertinent findings HEMATOLOGIC: Denies bleeding disorders. GENITOURINARY: Denies any blood in urine or increased urinary frequency. SKIN: Denies pruitis. Denies rash. PHYSICAL EXAM: VITAL SIGNS: Reviewed GENERAL: Well-developed in no acute distress. HEENT: No sclera icterus. Extraocular movements grossly intact. Moist buccal mucosa. Head is atraumatic, normocephalic. No nasal drainage. ABDOMEN: Soft. Nondistended. Nontender. Patient does have a left inguinal hernia bulge that contained bowel and is reducible. Nontender and soft. No discoloration. Right inguinal hernia soft nontender. NEUROLOGIC: Alert and oriented. Cranial nerves II through XII grossly intact. LABORATORY DATA: WBC 20 down to 15.75 Hgb 12.1 down to 10 platelets 302 Sodium is 136 potassium 4.1 creatinine 1.21 Stool for occult blood positive IMAGING: CT scan abdomen and pelvis reports dilated gas and enteric contrast filled small bowel without focal transition point. Gas is identified to the remaining colon and rectum. Findings suggest ileus. Large left inguinal hernia containing nonobstructed sigmoid/descending colon. Additional right inguinal hernia containing fat and anterior right tip of the urinary bladder. Sigmoid diverticulosis. Prostamegaly. Cholelithiasis. ASSESSMENT: 1. Acute lower GI bleed possibly diverticular bleed 2. Abdominal ileus possibly due to GI bleed 3. Left inguinal hernia containing bowel. No evidence of obstruction on CT 4. Right inguinal hernia containing fat and anterior right tip of urinary bladder PLAN: - Patient can proceed with bowel prep and colonoscopy from surgical standpoint. Colonoscopy being completed by GI service - No surgical intervention planned at this time regarding the bilateral inguinal hernias. Discussed outpatient management of the hernias. Patient is not interested in a hernia repair at this time - Surgical service will remain on standby - Continue supportive care - Continue to monitor for any further signs or symptoms of bleeding - Continue to monitor hemoglobin - Continue to hold Eliquis Physician Art Department Head note has been reviewed by physician. Signing provider agrees with the documented findings, assessment, and plan of care. Attestation Patient seen and examined at bedside. Presented with chief complaint of GI bleed with about 10 bloody bowel movements. Patient does take oral anticoagulation with Eliquis. This has been held for over 24 hours at this point. He is also noted to have an abdominal ileus. This is likely secondary to GI bleeding. Patient denying any nausea or vomiting. He is found to have bilateral inguinal hernias that are known to the patient. Not causing any pain at this time. Also no evidence of obstruction. These are both reducible on exam. Patient is not interested in any hernia repair at this time. This is reasonable and can be managed as an outpatient. GI service is consulted and patient to proceed with bowel prep for colonoscopy. Will continue to follow and make recommendations based on patient's clinical progress. Bryan Kwan DO Past Medical History Past Medical History: Atrial Flutter, COPD Additional Past Medical History / Comment(s): iireg heart rythym. Pt sees Dr Emery for his heart. COPD, Ex smoker. History of Any Multi-Drug Resistant Organisms: None Reported Past Surgical History: Tonsillectomy Past Anesthesia/Blood Transfusion Reactions: No Reported Reaction Past Psychological History: No Psychological Hx Reported Smoking Status: Former smoker Past Alcohol Use History: None Reported Past Drug Use History: Marijuana Additional Drug Use History / Comment(s): Current daily marajuana smoker. - Past Family History Father Family Medical History: Myocardial Infarction ([place]) Additional Family Medical History / Comment(s): Father from heart attack at 65 years old. Mother Family Medical History: Cancer Additional Family Medical History / Comment(s): Ovarian cancer Medications and Allergies Home Medications Medication Instructions Recorded Confirmed Type Atorvastatin Calcium [Lipitor] 40 mg PO DAILY 06/04/23 02/20/25 History Albuterol Inhaler [Ventolin Hfa 2 puff INHALATION Q6H PRN 30 Days 06/16/23 02/20/25 Rx Inhaler] #1 each Apixaban [Eliquis] 5 mg PO BID #60 tab 06/16/23 02/20/25 Rx Diltiazem Cd [Cardizem CD] 180 mg PO DAILY #30 cap 06/16/23 02/20/25 Rx Losartan [Cozaar] 50 mg PO DAILY #30 tab 06/16/23 02/20/25 Rx Fluticasone/Vilanterol [Breo 1 puff INHALATION RT-DAILY 02/20/25 02/20/25 History Ellipta 200-25 Mcg Inhaler] Allergies Allergy/AdvReac Type Severity Reaction Status Date / Time Penicillins Allergy Unknown Verified 02/20/25 08:24 Childhood Surgical - Exam Osteopathic Statement: *. No significant issues noted on an osteopathic structural exam other than those noted in the History and Physical/Consult. Vital Signs Temp Pulse Resp BP Pulse Ox 97.9 F 123 H 24 125/68 97 02/19/25 17:38 02/19/25 17:38 02/19/25 17:38 02/19/25 17:38 02/19/25 17:38 Results - Labs 02/20/25 09:04 02/20/25 09:04 Abnormal Lab Results - Last 24 Hours (Table) 02/19/25 02/19/25 02/20/25 Range/Units 18:12 18:12 09:04 WBC 20.84 H 15.75 H (4.50-10.00) 10*3/uL RBC 3.95 L (4.40-5.60) 10*6/uL Hgb 12.1 L 10.0 L D (13.0-17.0) g/dL Hct 36.4 L 29.9 L (39.6-50.0) % MCV 75.7 L 75.7 L (80.0-97.0) fL MCH 25.2 L 25.3 L (27.0-32.0) pg Immature Gran # 0.12 H (0.00-0.04) 10*3/uL Neutrophils # 18.33 H (1.80-7.70) 10*3/uL Eosinophils # 0.01 L (0.04-0.35) 10*3/uL Sodium 135 L (137-145) mmol/L Creatinine 1.29 H (0.66-1.25) mg/dL Glucose 160 H (74-99) mg/dL Alkaline Phosphatase 135 H (38-126) U/L 02/20/25 Range/Units 09:04 WBC (4.50-10.00) 10*3/uL RBC (4.40-5.60) 10*6/uL Hgb (13.0-17.0) g/dL Hct (39.6-50.0) % MCV (80.0-97.0) fL MCH (27.0-32.0) pg Immature Gran # (0.00-0.04) 10*3/uL Neutrophils # (1.80-7.70) 10*3/uL Eosinophils # (0.04-0.35) 10*3/uL Sodium 136 L (137-145) mmol/L Creatinine (0.66-1.25) mg/dL Glucose 161 H (74-99) mg/dL Alkaline Phosphatase (38-126) U/L Diabetes panel 02/19/25 02/20/25 Range/Units 18:12 09:04 Sodium 135 L 136 L (137-145) mmol/L Potassium 4.9 4.1 (3.5-5.1) mmol/L Chloride 100 103 (98-107) mmol/L Carbon Dioxide 23 22 (22-30) mmol/L BUN 17 19 (9-20) mg/dL Creatinine 1.29 H 1.21 (0.66-1.25) mg/dL Glucose 160 H 161 H (74-99) mg/dL Calcium 9.8 9.3 (8.4-10.2) mg/dL AST 24 (17-59) U/L ALT 34 (4-49) U/L Alkaline Phosphatase 135 H (38-126) U/L Total Protein 7.1 (6.3-8.2) g/dL Albumin 4.3 (3.5-5.0) g/dL Calcium panel 02/19/25 02/20/25 Range/Units 18:12 09:04 Calcium 9.8 9.3 (8.4-10.2) mg/dL Albumin 4.3 (3.5-5.0) g/dL Pituitary panel 02/19/25 02/20/25 Range/Units 18:12 09:04 Sodium 135 L 136 L (137-145) mmol/L Potassium 4.9 4.1 (3.5-5.1) mmol/L Chloride 100 103 (98-107) mmol/L Carbon Dioxide 23 22 (22-30) mmol/L BUN 17 19 (9-20) mg/dL Creatinine 1.29 H 1.21 (0.66-1.25) mg/dL Glucose 160 H 161 H (74-99) mg/dL Calcium 9.8 9.3 (8.4-10.2) mg/dL Adrenal panel 02/19/25 02/20/25 Range/Units 18:12 09:04 Sodium 135 L 136 L (137-145) mmol/L Potassium 4.9 4.1 (3.5-5.1) mmol/L Chloride 100 103 (98-107) mmol/L Carbon Dioxide 23 22 (22-30) mmol/L BUN 17 19 (9-20) mg/dL Creatinine 1.29 H 1.21 (0.66-1.25) mg/dL Glucose 160 H 161 H (74-99) mg/dL Calcium 9.8 9.3 (8.4-10.2) mg/dL Total Bilirubin 0.7 (0.2-1.3) mg/dL AST 24 (17-59) U/L ALT 34 (4-49) U/L Alkaline Phosphatase 135 H (38-126) U/L Total Protein 7.1 (6.3-8.2) g/dL Albumin 4.3 (3.5-5.0) g/dL
[2025-02-20] MEDS: LOSARTAN 50 MG TAB PO SCH (21:07)
[2025-02-21] MEDS: PEG 3350 (236 GM/BTL) + LYTES 4,000 ML BOTTLE PO ONE (04:58)
[2025-02-21] MEDS ORDERED: NON FORMULARY DRUG (Fluticasone/Vilanterol [Breo Ellipta 200-25 Mcg Inhaler] 1 EACH Blst.W INHALATION SCH (08:00)
[2025-02-21 08:17] LABS: HCT 26.8 % (39.6-50.0); HGB 8.7 g/dL (13.0-17.0); MCH 25.1 pg (27.0-32.0); MCHC 32.5 g/dL (32.0-37.0); MCV 77.5 FL (80.0-97.0); Mean Platelet Volume 10.5 FL (9.5-12.2); NRBC Per 100 WBC 0 X 10*3/uL (0.00-0.01); Platelet Count 274 X 10*3/uL (140-440); RBC 3.46 X 10*6/uL (4.40-5.60); RDW 17.3 % (11.5-14.5); WBC 20.51 X 10*3/uL (4.50-10.00)
[2025-02-21 08:31] LABS: BUN/Creat Ratio 18.44 Ratio (12.00-20.00); Blood Urea Nitrogen 33.2 mg/dL (9.0-27.0); Calcium 9.2 mg/dL (8.7-10.3); Chloride 98 mmol/L (96-109); Glucose 112 mg/dL (70-110); Potassium 4.4 mmol/L (3.5-5.5); Sodium 134 mmol/L (135-145)
[2025-02-21 08:59] LABS: INR 0.94 sec (0.93-1.11); Prothrombin Time 10.8 sec (9.9-11.9)
[2025-02-21 10:07] LABS: Basophils # (M) 0 X 10*3/uL (0.00-0.10); Eosinophils # (M) 0 X 10*3/uL (0.04-0.35); Lymphocytes # (M) 0.82 X 10*3/uL (0.90-5.00); Microcytosis (M) 2+ (None Seen); Monocytes # (M) 0.82 X 10*3/uL (0.20-1.00); Neutrophils # (M) 18.87 X 10*3/uL (1.80-7.70); Neutrophils % (M) 92 %
[2025-02-21] MEDS: ATORVASTATIN 40 MG TAB PO SCH (11:21)
--- NOTE | 2025-02-21 12:35 | P.PN ---
Subjective Progress Note Date: 02/21/25 Patient is a 64-year-old male with past medical history significant for COPD, tobacco smoker, hypertension, atrial fibrillation normally anticoagulated on Eliquis.. He does follow in the pulmonary office with Dr. Hampton. He has severe COPD with an FEV1 45% of predicted. Normally maintained on Breo Ellipta maintenance inhaler as well as albuterol sulfate HFA inhaler as needed. Quit smoking cigarettes approximately 6 years ago. Comes into the emergency department yesterday evening with chief complaint of bright red blood per rectum. Noted to be short of breath in the ED, and his COPD was felt to be an exacerbation. A pulmonary consultation was placed for this reason. Workup in the emergency department including a chest x-ray showing flattening of the diaphragms and hyperinflation consistent with COPD no focal consolidations, pleural effusions, or pneumothoraces. CBC, with a WBC count of 21, hemoglobin 12.1, platelets 368. CMP: Sodium 135, potassium 4.9, chloride 100, serum bicarb 23, BUN 17, creatinine 1.29, glucose 160. LFTs unremarkable. EKG: Sinus tachycardia, rate 125 bpm, RBBB pattern. Stool occult was positive. GI services will see him for this. He is currently being evaluated emergency department room 23. He is resting comfortably on room air. Does not appear in any distress. Some minimal expiratory wheezes heard on auscultation. States his breathing is improved since receiving some breathing treatments down here in the ER. Denies any recent sick contacts. Denies any infectious symptoms. Endorses chronic cough, not much different from baseline. Denies any purulent sputum production. Denies fever/chills. Denies chest pain, heart palpitations, syncopal events, lower extremity edema. He has had 1 bright red bowel movements since being in the emergency department. While at home, yesterday, he had several bloody bowel movements, approximately once every hour of bright red blood. He has never had a colonoscopy in the past. Denies any hemorrhoids. Denies any rectal pain. Denies nausea, vomiting, hematemesis. Denies abdominal pain. Eliquis is cur rently on hold. Bedside telemetry appears sinus mechanism, rate 88 bpm. current vital signs: Heart rate 88 bpm, blood pressure 132/74 mmHg, SpO2 recording at 92% on room air. The patient is seen today February 21, 2025 in follow-up on the regular medical floor. He is currently awake and alert in no acute distress. He is sitting up at the bedside. Maintaining good O2 saturations in the 90s on room air. He has been afebrile. Hemodynamically stable. White count 20.5. Hemoglobin 8.7. Platelets 274. Sodium 134. Potassium 4.4. Bicarb 21. BUN 33. Creatinine 1.8. Glucose 112. Awaiting colonoscopy today. He remains on DuoNeb inhalations, Symbicort. Empiric antibiotics in the form of azithromycin. Protonix for GI prophylaxis. Objective - Vital Signs Vital signs: Vital Signs Temp 97.9 F 02/21/25 06:59 Pulse 92 02/21/25 12:09 Resp 19 02/21/25 06:59 BP 121/66 02/21/25 06:59 Pulse Ox 94 L 02/21/25 06:59 FiO2 Intake & Output 02/20/25 02/21/25 02/21/25 18:59 06:59 18:59 Intake Total 500 Output Total 600 Balance -600 500 Weight 82.7 kg Intake: Oral 500 Output: Urine 600 Other: Voiding Method Toilet # Voids 1 - Exam GENERAL EXAM: Alert, pleasant 64-year-old male, on room air oxygen, comfortable in no apparent distress. HEAD: Normocephalic. EYES: Normal reaction of pupils, equal size. NOSE: Clear with pink turbinates. THROAT: No erythema or exudates. NECK: No masses, no JVD. CHEST: No chest wall deformity. LUNGS: Equal air entry with no crackles, wheeze, rhonchi or dullness. CVS: S1 and S2 normal with no audible murmur, regular rhythm. ABDOMEN: No hepatosplenomegaly, normal bowel sounds, no guarding or rigidity. SPINE: No scoliosis or deformity SKIN: No rashes CENTRAL NERVOUS SYSTEM: No focal deficits, tone is normal in all 4 extremities. EXTREMITIES: There is no peripheral edema. No clubbing, no cyanosis. Peripheral pulses are intact. - Labs CBC & Chem 7: 02/21/25 05:21 02/21/25 05:21 Labs: Abnormal Lab Results - Last 24 Hours (Table) 02/21/25 02/21/25 Range/Units 05: 05: WBC 20.51 H (4.50-10.00) X 10*3/uL RBC 3.46 L (4.40-5.60) X 10*6/uL Hgb 8.7 L (13.0-17.0) g/dL Hct 26.8 L (39.6-50.0) % MCV 77.5 L (80.0-97.0) FL MCH 25.1 L (27.0-32.0) pg RDW 17.3 H (11.5-14.5) % Neutrophils # (Manual) 18.87 H (1.80-7.70) X 10*3/uL Lymphocytes # (Manual) 0.82 L (0.90-5.00) X 10*3/uL Eosinophils # (Manual) 0 L (0.04-0.35) X 10*3/uL Microcytosis (manual) 2+ A (None Seen) Sodium 134 L (135-145) mmol/L Carbon Dioxide 21.0 L (21.6-31.8) mmol/L Anion Gap 15.00 H (4.00-12.00) mmol/L BUN 33.2 H (9.0-27.0) mg/dL Creatinine 1.8 H (0.6-1.5) mg/dL Est GFR (CKD-EPI) 41 L (>=60) Glucose 112 H (70-110) mg/dL Assessment and Plan Assessment: Hematochezia Acute COPD exacerbation, chest x-ray showing flattening of the diaphragms and hyperinflation consistent with COPD but no focal consolidations, pleural effusions, or pneumothoraces Acute dyspnea, secondary to above, recovered Acute leukocytosis, possibly reactive Acute kidney injury, creatinine 1.8 Severe chronic obstructive pulmonary disease with an FEV1 45% of predicted at baseline. Normally maintained on a combination of Breo Ellipta maintenance inhaler and albuterol sulfate HFA inhaler as needed History of paroxysmal atrial fibrillation, anticoagulated normally on Eliquis, currently sinus mechanism Hypertension History of hyperlipidemia Former tobacco dependence, quit smoking cigarettes approximately 6 years ago Plan: The patient was seen and evaluated Labs and medications reviewed Stable and on room air oxygen Continue Symbicort, DuoNebs Eliquis remains on hold Awaiting colonoscopy We will continue to follow I have personally seen and examined the patient, performed the documentation and the assessment and plan as written. Number of minutes spent on the visit: 10 Dictation was produced using [employer] dictation software. Please excuse any grammatical, word or spelling errors.
--- NOTE | 2025-02-21 13:47 | P.PN ---
Subjective Progress Note Date: 02/21/25 SURGICAL PROGRESS NOTE CHIEF COMPLAINT: GI bleed HISTORY OF PRESENT ILLNESS: Patient undergoing the bowel prep for colonoscopy. Patient reports he is passing blood. Hemoglobin is down from 10-8.7. He does report some mild abdominal discomfort. Afebrile. Vital stable. WBC is up from 15-20 Hgb down from 10-8.7 platelets 274 PHYSICAL EXAM: VITAL SIGNS: Reviewed. GENERAL: Well-developed in no acute distress. ABDOMEN: Soft. Nondistended. Nontender NEUROLOGIC: Alert and oriented. Cranial nerves II through XII grossly intact. ASSESSMENT: 1. Acute lower GI bleed possibly diverticular bleed 2. Abdominal ileus possibly due to GI bleed 3. Left inguinal hernia containing bowel. No evidence of obstruction on CT 4. Right inguinal hernia containing fat and anterior right tip of urinary blad yaw PLAN: - Patient scheduled for colonoscopy with GI service today - Bilateral inguinal hernias not causing any pain. No evidence of obstruction on CT. Both hernias are reducible. Patient is not interested in any hernia repair at this time. Recommend outpatient management of the bilateral hernias. - Continue to monitor hemoglobin - Continue to monitor for any signs or symptoms of bleeding - Eliquis on hold Physician Seo Team Lead note has been reviewed by physician. Signing provider agrees with the documented findings, assessment, and plan of care. Attestation Patient seen and examined at bedside. Currently undergoing bowel prep for colonoscopy. There is some blood in his bowel movements. Hemoglobin 8.7 today. Denies abdominal pain. Will follow with colonoscopy results. No current plan for surgical intervention. Bryan Kwan, Objective - Vital Signs Vital signs: Vital Signs Temp 97.9 F 02/21/25 06:59 Pulse 96 02/21/25 12:23 Resp 19 02/21/25 06:59 BP 121/66 02/21/25 06:59 Pulse Ox 94 L 02/21/25 06:59 FiO2 Intake & Output 02/20/25 02/21/25 02/21/25 18:59 06:59 18:59 Intake Total 500 Output Total 600 Balance -600 500 Weight 82.7 kg Intake: Oral 500 Output: Urine 600 Other: Voiding Method Toilet # Voids 1 - Labs CBC & Chem 7: 02/21/25 05:21 02/21/25 05:21 Labs: Abnormal Lab Results - Last 24 Hours (Table) 02/21/25 02/21/25 Range/Units 05:21 05:21 WBC 20.51 H (4.50-10.00) X 10*3/uL RBC 3.46 L (4.40-5.60) X 10*6/uL Hgb 8.7 L (13.0-17.0) g/dL Hct 26.8 L (39.6-50.0) % MCV 77.5 L (80.0-97.0) FL MCH 25.1 L (27.0-32.0) pg RDW 17.3 H (11.5-14.5) % Neutrophils # (Manual) 18.87 H (1.80-7.70) X 10*3/uL Lymphocytes # (Manual) 0.82 L (0.90-5.00) X 10*3/uL Eosinophils # (Manual) 0 L (0.04-0.35) X 10*3/uL Microcytosis (manual) 2+ A (None Seen) Sodium 134 L (135-145) mmol/L Carbon Dioxide 21.0 L (21.6-31.8) mmol/L Anion Gap 15.00 H (4.00-12.00) mmol/L BUN 33.2 H (9.0-27.0) mg/dL Creatinine 1.8 H (0.6-1.5) mg/dL Est GFR (CKD-EPI) 41 L (>=60) Glucose 112 H (70-110) mg/dL
--- NOTE | 2025-02-21 15:23 | P.PN ---
Subjective Progress Note Date: 02/21/25 Patient 64-year-old male came in with complaints of bright red blood per rectum. Patient does have history of COPD apparently patient was in COPD exacerbation when he came in was started on systemic steroids inhalational treatments. Patient is not wheezing at this time patient is on room air at this time. Patient is on Eliquis at home for paroxysmal atrial fibrillation. Patient is presently sinus rhythm. Patient does have leukocytosis with white count of 15,000 came down from 20,000. Patient has COPD with FEV1 of 45%. CT of the abdomen was done which showed findings consistent with ileus and a large inguinal hernia sigmoid diverticulosis without any diverticulitis and prostatomegaly and incidental finding of cholelithiasis. 02/21/2025 Patient is eval today in follow-up he continues to report bright red blood per rectum and is currently undergoing a bowel prep he will be going for EGD co lonoscopy later on today. Eliquis remains on hold. He is known to have some scattered wheezing today does have history of emphysema. Will repeat a chest x- ray at this time. His creatinine was up to 1.8 today with a BUN of 43.2 sodium level 134. Will stop the IV fluids and order a chest x-ray. White blood cell count of 20.51, hemoglobin 8.7. Review of Systems Constitutional: Denied any fatigue denied any fever. Cardio vascular: denied any chest pain, palpitations Gastrointestinal: denied any nausea, vomiting, diarrhea reports rectal bleeding Pulmonary: Denied any shortness of breath cough Neurologic denied any new focal deficits All inpatient medications were reviewed and appropriate changes in these medications as dictated in the interval history and assessment and plan. PHYSICAL EXAMINATION: GENERAL: The patient is alert and oriented x3, not in any acute distress. Well developed, well nourished. HEENT: Pupils are round and equally reacting to light. EOMI. No scleral icterus. No conjunctival pallor. Normocephalic, atraumatic. No pharyngeal erythema. No thyromegaly. CARDIOVASCULAR: S1 and S2 present. No murmurs, rubs, or gallops. PULMONARY: Faint Scattered wheezing ABDOMEN: Soft, nontender, nondistended, normoactive bowel sounds. No palpable organomegaly. MUSCULOSKELETAL: No joint swelling or deformity. EXTREMITIES: No cyanosis, clubbing, or pedal edema. NEUROLOGICAL: Gross neurological examination did not reveal any focal deficits. SKIN: No rashes. Assessment and plan -Lower GI bleed probably diverticular bleed - Incidental finding of ileus and gallstones without any symptoms of cholecystitis General Surgery consult -COPD with acute exacerbation on admission - Paroxysmal atrial fibrillation presently sinus rhythm hold off anticoagulation temporarily because of acute GI bleed - Marijuana use - Leukocytosis: Can be reactive -Mild acute renal failure secondary to GI bleed patient was started on IV fluids DVT prophylaxis: Early ambulation Plan Continue inhaled steroids Continue hold eliquis GI following and pending endoscopy Chest xray Bladder scan completed and patient is not retaining urine Check procalcitonin level Check BNP Hold the IV fluids Monitor electrolytes and renal function The impression and plan of care has been dictated by Daniela Dunn, Nurse Practitioner as directed. Dr. Rivera MD I have performed a history and physical examination and medical decision making of this patient, discussed the same with the dictator, and agree with the dictators assessment and plan as written, documented as a scribe. Based on total visit time, I have performed more than 50% of this visit. Objective - Vital Signs Vital signs: Vital Signs Temp 97.9 F 02/21/25 06:59 Pulse 96 02/21/25 12:23 Resp 19 02/21/25 06:59 BP 121/66 02/21/25 06:59 Pulse Ox 94 L 02/21/25 06:59 FiO2 Intake & Output 02/20/25 02/21/25 02/21/25 18:59 06:59 18:59 Intake Total 500 Output Total 600 Balance -600 500 Weight 82.7 kg Intake: Oral 500 Output: Urine 600 Other: Voiding Method Toilet # Voids 1 - Labs CBC & Chem 7: 02/21/25 05:21 02/21/25 05:21 Labs: Abnormal Lab Results - Last 24 Hours (Table) 02/21/25 02/21/25 Range/Units 05:21 05:21 WBC 20.51 H (4.50-10.00) X 10*3/uL RBC 3.46 L (4.40-5.60) X 10*6/uL Hgb 8.7 L (13.0-17.0) g/dL Hct 26.8 L (39.6-50.0) % MCV 77.5 L (80.0-97.0) FL MCH 25.1 L (27.0-32.0) pg RDW 17.3 H (11.5-14.5) % Neutrophils # (Manual) 18.87 H (1.80-7.70) X 10*3/uL Lymphocytes # (Manual) 0.82 L (0.90-5.00) X 10*3/uL Eosinophils # (Manual) 0 L (0.04-0.35) X 10*3/uL Microcytosis (manual) 2+ A (None Seen) Sodium 134 L (135-145) mmol/L Carbon Dioxide 21.0 L (21.6-31.8) mmol/L Anion Gap 15.00 H (4.00-12.00) mmol/L BUN 33.2 H (9.0-27.0) mg/dL Creatinine 1.8 H (0.6-1.5) mg/dL Est GFR (CKD-EPI) 41 L (>=60) Glucose 112 H (70-110) mg/dL Assessment and Plan Time with Patient: Less than 30
[2025-02-21] MEDS: SODIUM CHLORIDE 0.9% 500 ML 500 ML IV ONE (16:18)
[2025-02-21] MEDS ORDERED: PHENYLEPHRINE-0.9% NACL SYG 1,000 MCG/10 ML SYRINGE ONE (16:19)
[2025-02-21] MEDS ORDERED: PROPOFOL 10 MG/ML 20 ML VIAL IV ONE (16:19)
--- NOTE | 2025-02-21 17:11 | P.PCN ---
Date of Procedure: 02/21/25 Procedure(s) Performed: BRIEF HISTORY: Patient is a 64-year-old pleasant white male admitted to hospital with acute lower GI bleed. Multiple episodes of bright red blood per rectum. He has history of a benign Eliquis which is on hold for the last 2 days. He dropped his hemoglobin from 12 to 8.5 g/dL. He scheduled for a colonoscopy to evaluate further. PROCEDURE PERFORMED: Colonoscopy with snare polypectomy, tattooing with Leah ink, biopsy and Endo Clip placement. PREOPERATIVE DIAGNOSIS: Acute lower GI bleed. IV sedation per Anesthesia. PROCEDURE: After informed consent was obtained, the patient, was brought into the endoscopy unit. IV sedation was administered by Anesthesia under continuous monitoring. Digital rectal examination was normal. Initially the Olympus CF-160 flexible video colonoscope was then inserted in the rectum, gradually advanced into the cecum without any difficulty. Careful examination was performed as the scope was gradually being withdrawn. Ileocecal valve and the appendiceal orifice were visualized and appeared normal. Prep was excellent. Mucosa of the cecum, had a 5 mm x 2 and 2 cm polyp removed by snare polypectomy. Hepatic flexure there was 1 cm and 3 cm broad-based polyp removed by snare polypectomy followed by Endo Clip placement. In the mid transverse colon there was a 4.5 to 5 cm polypoid lesion with ulceration at the base of the polyp status post multiple biopsies followed by tattooing with Leah ink. This was suspicious for malignancy and hence a polyp was not removed. In the descending colon there were 4 polyps measuring between 1 cm to 2 cm in size all which were removed by snare polypectomy. Endo Clip placed placed on one of the polyp to prevent polypectomy bleed. Scattered sigmoid diverticulosis seen. In the rectosigmoid colon at 20 cm from the anal verge there was a 3 cm thick pedunculated polyp removed by snare polypectomy and complete polypectomy accomplished. Scattered sigmoid diverticulosis seen. Retroflexion was performed in the rectum and small internal hemorrhoids were seen. The patient tolerated the procedure well. IMPRESSION: 5 cm polypoid transverse colon mass with ulcer at the base suspicious for malignancy status post multiple biopsies 5 mm x 2 and 2 cm cecal polyp status post snare polypectomy 3 cm broad-based hepatic flexure polyp and 1 cm polyp status post polypectomy followed by Endo Clip placement 4 polyps in the descending colon measuring between 1 cm to 2 cm in size status post polypectomy 3 cm thick pedunculated rectosigmoid polyp at 20 cm from anal verge status post snare polypectomy and complete polypectomy accomplished RECOMMENDATIONS: Findings of this examination were discussed with the patient as well as his family. Await biopsy results. At this time we will obtain surgical consultation with Dr. Frances. He will be on clear liquids.. Hold off on Eliquis for now and resume in 2 days.
--- NOTE | 2025-02-21 18:57 | XR ---
EXAMINATION TYPE: XR chest 1V portable DATE OF EXAM: 02/21/2025 6:52 PM COMPARISON: Recent chest radiograph 02/19/2025. CLINICAL INDICATION: Male, 64 years old with history of wheezing; H TECHNIQUE: XR chest 1V portable Frontal view of the chest. FINDINGS: Lungs/Pleura: There is no evidence of pleural effusion, focal consolidation, or pneumothorax. Left b asilar atelectasis. Lungs are inflated bilaterally. Pulmonary vascularity: Unremarkable. Heart/mediastinum: Cardiomediastinal silhouette is unremarkable. Musculoskeletal: No acute osseous pathology. Other findings: None IMPRESSION: 1. Left basilar atelectasis. Otherwise, no acute abnormality in the chest. 2. Findings suggestive of COPD. [facility], , 02/21/2025 6:55 PM
[2025-02-21] MEDS: SIMETHICONE 40 MG/0.6 ML DROPS 2,000 MG/30 ML BOTTLE PO PRN (23:14)
--- NOTE | 2025-02-22 10:00 | P.PN ---
Progress Note - Text Progress Note Date: 02/22/25 CHIEF COMPLAINT: GI bleed HISTORY OF PRESENT ILLNESS: No acute events overnight. Tolerating CLD. Patient had colonoscopy yesterday with GI which showed a polypoid lesion in Transverse Colon concerning for Malignancy. PHYSICAL EXAM: VITAL SIGNS: Reviewed. GENERAL: Well-developed in no acute distress. ABDOMEN: Soft. Nondistended. Nontender NEUROLOGIC: Alert and oriented. Cranial nerves II through XII grossly intact. ASSESSMENT: 1. Acute lower GI bleed possibly diverticular bleed 2. Abdominal ileus possibly due to GI bleed 3. Left inguinal hernia containing bowel. No evidence of obstruction on CT 4. Right inguinal hernia containing fat and anterior right tip of urinary bladder PLAN: - Keep patient on Clear Liquid Diet. Do not advance - I discussed colonoscopy results with patient. I discussed possible Robotic Colectomy for patient scheduled for Monday in detail and answered all his questions. I explained to patient we can discuss further tomorrow if he has any further questions - Follow up Pathology - AM labs Joaquin Che DO [facility] [phone]
--- NOTE | 2025-02-22 10:19 | P.PN ---
Subjective Progress Note Date: 02/22/25 Patient is a 64-year-old male with past medical history significant for COPD, tobacco smoker, hypertension, atrial fibrillation normally anticoagulated on Eliquis.. He does follow in the pulmonary office with Dr. Hampton. He has severe COPD with an FEV1 45% of predicted. Normally maintained on Breo Ellipta maintenance inhaler as well as albuterol sulfate HFA inhaler as needed. Quit smoking cigarettes approximately 6 years ago. Comes into the emergency department yesterday evening with chief complaint of bright red blood per rectum. Noted to be short of breath in the ED, and his COPD was felt to be an exacerbation. A pulmonary consultation was placed for this reason. Workup in the emergency department including a chest x-ray showing flattening of the diaphragms and hyperinflation consistent with COPD no focal consolidations, pleural effusions, or pneumothoraces. CBC, with a WBC count of 21, hemoglobin 12.1, platelets 368. CMP: Sodium 135, potassium 4.9, chloride 100, serum bicarb 23, BUN 17, creatinine 1.29, glucose 160. LFTs unremarkable. EKG: Sinus tachycardia, rate 125 bpm, RBBB pattern. Stool occult was positive. GI services will see him for this. He is currently being evaluated emergency department room 23. He is resting comfortably on room air. Does not appear in any distress. Some minimal expiratory wheezes heard on auscultation. States his breathing is improved since receiving some breathing treatments down here in the ER. Denies any recent sick contacts. Denies any infectious symptoms. Endorses chronic cough, not much different from baseline. Denies any purulent sputum production. Denies fever/chills. Denies chest pain, heart palpitations, syncopal events, lower extremity edema. He has had 1 bright red bowel movements since being in the emergency department. While at home, yesterday, he had several bloody bowel movements, approximately once every hour of bright red blood. He has never had a colonoscopy in the past. Denies any hemorrhoids. Denies any rectal pain. Denies nausea, vomiting, hematemesis. Denies abdominal pain. Eliquis is cur rently on hold. Bedside telemetry appears sinus mechanism, rate 88 bpm. current vital signs: Heart rate 88 bpm, blood pressure 132/74 mmHg, SpO2 recording at 92% on room air. The patient is seen today February 21, 2025 in follow-up on the regular medical floor. He is currently awake and alert in no acute distress. He is sitting up at the bedside. Maintaining good O2 saturations in the 90s on room air. He has been afebrile. Hemodynamically stable. White count 20.5. Hemoglobin 8.7. Platelets 274. Sodium 134. Potassium 4.4. Bicarb 21. BUN 33. Creatinine 1.8. Glucose 112. Awaiting colonoscopy today. He remains on DuoNeb inhalations, Symbicort. Empiric antibiotics in the form of azithromycin. Protonix for GI prophylaxis. The patient is seen today February 22, 2025 in follow-up on the regular medical floor. This awake and alert in no acute distress. Maintaining O2 saturations in the 90s on 3 L/min per nasal cannula. Abnormalities. Evidence of COPD. FEV1 value is 45% of predicted. Colonoscopy did reveal a 5 cm polypoid transverse colon mass with ulcer at the base suspicious for malignancy status post multiple biopsies. Couple polyps status post polypectomies. Eliquis to be held. Surgery is planning for possible robotic colectomy on Monday. Remains on clear liquid diet only. Remains on DuoNeb and elations, Symbicort. Empiric antibiotics in the form of azithromycin. Objective - Vital Signs Vital signs: Vital Signs Temp 98.2 F 02/22/25 07:15 Pulse 88 02/22/25 08:43 Resp 16 02/22/25 08:00 BP 115/80 02/22/25 07:15 Pulse Ox 96 02/22/25 08:33 FiO2 Intake & Output 02/21/25 02/22/25 02/22/25 18:59 06:59 18:59 Intake Total 300 2470 Balance 300 2470 Weight 84.5 kg Intake: IV 300 Oral 2470 Other: Voiding Method Toilet Toilet # Voids 7 4 # Bowel Movements 6 - Exam GENERAL EXAM: Alert, pleasant 64-year-old male, up in bed, on 3 L/min per nasal cannula, comfortable in no apparent distress. HEAD: Normocephalic. EYES: Normal reaction of pupils, equal size. NOSE: Clear with pink turbinates. THROAT: No erythema or exudates. NECK: No masses, no JVD. CHEST: No chest wall deformity. LUNGS: Equal air entry with no crackles, wheeze, rhonchi or dullness. CVS: S1 and S2 normal with no audible murmur, regular rhythm. ABDOMEN: No hepatosplenomegaly, normal bowel sounds, no guarding or rigidity. SPINE: No scoliosis or deformity SKIN: No rashes CENTRAL NERVOUS SYSTEM: No focal deficits, tone is normal in all 4 extremities. EXTREMITIES: There is no peripheral edema. No clubbing, no cyanosis. Peripheral pulses are intact. - Labs CBC & Chem 7: 02/21/25 05:21 02/21/25 05:21 Assessment and Plan Assessment: Hematochezia. Colonoscopy revealed a 5 cm polypoid transverse colon mass with ulcer at the base suspicious for malignancy. Cytology pending. Plan is for possible robotic colectomy on 02/24/2025 Acute COPD exacerbation, chest x-ray showing flattening of the diaphragms and hyperinflation consistent with COPD but no focal consolidations, pleural effusions, or pneumothoraces Acute dyspnea, secondary to above, recovered Acute leukocytosis, possibly reactive Acute kidney injury, creatinine 1.8 Severe chronic obstructive pulmonary disease with an FEV1 45% of predicted at baseline. Normally maintained on a combination of Breo Ellipta maintenance inhaler and albuterol sulfate HFA inhaler as needed History of paroxysmal atrial fibrillation, anticoagulated normally on Eliquis, currently sinus mechanism Hypertension History of hyperlipidemia Former tobacco dependence, quit smoking cigarettes approximately 6 years ago Plan: The patient was seen and evaluated Colonoscopy results and medications reviewed Stable and on 3 L nasal cannula Continue Symbicort, DuoNebs Eliquis remains on hold Possible robotic colectomy on 02/24/2025 We will continue to follow I have personally seen and examined the patient, performed the documentation and the assessment and plan as written. Number of minutes spent on the visit: 10 Dictation was produced using [employer] software. Please excuse any grammatical, word or spelling errors.
[2025-02-22 10:35] LABS: Basophils # (A) 0.01 X 10*3/uL (0.00-0.10); Basophils % (A) 0 %; Eosinophils # (A) 0 X 10*3/uL (0.04-0.35); Eosinophils % (A) 0 %; HCT 27.4 % (39.6-50.0); HGB 8.5 g/dL (13.0-17.0); Lymphocytes # (A) 1.34 X 10*3/uL (0.90-5.00); Lymphocytes % (A) 6.6 %; MCH 24.1 pg (27.0-32.0); MCV 77.6 FL (80.0-97.0); Mean Platelet Volume 10.5 FL (9.5-12.2); Monocytes % (A) 8.4 %; NRBC Per 100 WBC 0 X 10*3/uL (0.00-0.01); Neutrophils % (A) 84.6 %; Platelet Count 279 X 10*3/uL (140-440); RBC 3.53 X 10*6/uL (4.40-5.60); RDW 17.2 % (11.5-14.5); WBC 20.23 X 10*3/uL (4.50-10.00)
[2025-02-22 10:57] LABS: BUN/Creat Ratio 23.15 Ratio (12.00-20.00); Blood Urea Nitrogen 30.1 mg/dL (9.0-27.0); Calcium 8.8 mg/dL (8.7-10.3); Chloride 100 mmol/L (96-109); Glucose 100 mg/dL (70-110); Sodium 138 mmol/L (135-145)
[2025-02-22] MEDS: METOPROLOL TARTRATE 25 MG TAB PO SCH (11:33)
[2025-02-22] MEDS: METOPROLOL TARTRATE 5 MG/5 ML VIAL IVP STA (11:42)
--- NOTE | 2025-02-22 14:13 | P.PN ---
Subjective Progress Note Date: 02/22/25 Patient 64-year-old male came in with complaints of bright red blood per rectum. Patient does have history of COPD apparently patient was in COPD exacerbation when he came in was started on systemic steroids inhalational treatments. Patient is not wheezing at this time patient is on room air at this time. Patient is on Eliquis at home for paroxysmal atrial fibrillation. Patient is presently sinus rhythm. Patient does have leukocytosis with white count of 15,000 came down from 20,000. Patient has COPD with FEV1 of 45%. CT of the abdomen was done which showed findings consistent with ileus and a large inguinal hernia sigmoid diverticulosis without any diverticulitis and prostatomegaly and incidental finding of cholelithiasis. 02/21/2025 Patient is eval today in follow-up he continues to report bright red blood per rectum and is currently undergoing a bowel prep he will be going for EGD co lonoscopy later on today. Eliquis remains on hold. He is known to have some scattered wheezing today does have history of emphysema. Will repeat a chest x- ray at this time. His creatinine was up to 1.8 today with a BUN of 43.2 sodium level 134. Will stop the IV fluids and order a chest x-ray. White blood cell count of 20.51, hemoglobin 8.7. 02/22/2025 Patient eval today resting in bed comfortably. He reports improvement in his breathing as compared to yesterday and his wheezing is significantly improved. He does continue on DuoNebs [id number]. Chest x-ray completed yesterday afternoon reveals left basilar atelectasis and findings suggestive of COPD. He has been going in and out of afib RVR. Currently normal sinus rhythm in the 90s. Lab cerebral white blood hemoglobin 8, hemoglobin 8, BUN 30 creatinine 1.3. Findings from EGD colonoscopy reveal multiple polyps status post polypectomy. There was a 5 cm polypoid transverse colon mass with ulcer at the base suspicious for malignancy status post multiple biopsies. Biopsy reports are pending. Patient continues to close good diet. Eliquis remain on hold for 2 more days. General surgery for evaluation. Review of Systems Constitutional: Denied any fatigue denied any fever. Cardio vascular: denied any chest pain, palpitations Gastrointestinal: denied any nausea, vomiting, diarrhea reports rectal bleeding Pulmonary: Denied any shortness of breath cough Neurologic denied any new focal deficits All inpatient medications were reviewed and appropriate changes in these medications as dictated in the interval history and assessment and plan. PHYSICAL EXAMINATION: GENERAL: The patient is alert and oriented x3, not in any acute distress. Well developed, well nourished. HEENT: Pupils are round and equally reacting to light. EOMI. No scleral icterus. No conjunctival pallor. Normocephalic, atraumatic. No pharyngeal erythema. No thyromegaly. CARDIOVASCULAR: S1 and S2 present. No murmurs, rubs, or gallops. PULMONARY: Faint Scattered wheezing ABDOMEN: Soft, nontender, nondistended, normoactive bowel sounds. No palpable organomegaly. MUSCULOSKELETAL: No joint swelling or deformity. EXTREMITIES: No cyanosis, clubbing, or pedal edema. NEUROLOGICAL: Gross neurological examination did not reveal any focal deficits. SKIN: No rashes. Assessment and plan - Lower GI bleed probably diverticular bleed - Status post colonoscopy with multiple polyps status post polypectomy; transverse colon mass suspicious for malignancy status post biopsy. - Incidental finding of ileus and gallstones without any symptoms of cholecystitis General Surgery consult - COPD with acute exacerbation on admission - Paroxysmal atrial fibrillation presently sinus rhythm hold off anticoagulation temporarily because of acute GI bleed - afib RVR better with metoprolol - Marijuana use - Leukocytosis: Can be reactive - Mild acute renal failure secondary to GI bleed DVT prophylaxis: Early ambulation Plan Add oral metoprolol twice daily and continue cardiac telemetry Continue inhaled steroids Continue hold eliquis for 2 more days Clear liquid diet GI following General surgery consult Bladder scan completed and patient is not retaining urine Monitor electrolytes and renal function The impression and plan of care has been dictated by Daniela Dunn, Nurse Practitioner as directed. Dr. Rivera MD I have performed a history and physical examination and medical decision making of this patient, discussed the same with the dictator, and agree with the dictators assessment and plan as written, documented as a scribe. Based on total visit time, I have performed more than 50% of this visit. Objective - Vital Signs Vital signs: Vital Signs Temp 98.2 F 02/22/25 07:15 Pulse 92 02/22/25 12:39 Resp 16 02/22/25 08:00 BP 115/80 02/22/25 07:15 Pulse Ox 96 02/22/25 08:33 FiO2 Intake & Output 02/21/25 02/22/25 02/22/25 18:59 06:59 18:59 Intake Total 300 2470 Balance 300 2470 Weight 84.5 kg Intake: IV 300 Oral 2470 Other: Voiding Method Toilet Toilet # Voids 7 4 # Bowel Movements 6 - Labs CBC & Chem 7: 02/22/25 03:07 02/22/25 03:07 Labs: Abnormal Lab Results - Last 24 Hours (Table) 02/22/25 02/22/25 Range/Units 03:07 03:07 WBC 20.23 H (4.50-10.00) X 10*3/uL RBC 3.53 L (4.40-5.60) X 10*6/uL Hgb 8.5 L (13.0-17.0) g/dL Hct 27.4 L (39.6-50.0) % MCV 77.6 L (80.0-97.0) FL MCH 24.1 L (27.0-32.0) pg MCHC 31.0 L (32.0-37.0) g/dL RDW 17.2 H (11.5-14.5) % Immature Gran # 0.08 H (0.00-0.04) X 10*3/uL Neutrophils # 17.10 H (1.80-7.70) X 10*3/uL Monocytes # 1.70 H (0.20-1.00) X 10*3/uL Eosinophils # 0 L (0.04-0.35) X 10*3/uL Anion Gap 13.00 H (4.00-12.00) mmol/L BUN 30.1 H (9.0-27.0) mg/dL BUN/Creatinine Ratio 23.15 H (12.00-20.00) Ratio Assessment and Plan Time with Patient: Less than 30
--- NOTE | 2025-02-22 17:23 | P.CRDCN ---
History of Present Illness Consult date: 02/22/25 History of present illness: HISTORY OF PRESENTING ILLNESS: 64-year-old with past medical history of paroxysmal atrial fibrillation, COPD, tobacco smoker, hypertension. He comes to the emergency department on 02/21/2025 because of noticing bright red blood per rectum. For this he underwent colonoscopy which showed 5 cm polypoid transverse colon mass with ulcer at the b ase suspicious for malignancy. House Repairer consulted for anticoagulation management in setting of lower GI bleeding and prior history of paroxysmal atrial fibrillation. He is known to Dr. Rodríguez 02/22/2025 Over last 24 hours patient has been going in and out of atrial flutter with RVR and normal sinus rhythm. On review of telemetry it appears to be atrial flutter which is intermittent and patient is going in and out of it. For this primary team added metoprolol tartrate 100 mg twice daily. He was also noticed to be borderline hypotensive for which I discontinued his home losartan. Patient appears to be distressed and depressed with the diagnosis of possible malignancy and is not wanting to proceed with any cancer therapy if you need 1. I think you would benefit from medical counseling. Admission Labs: Labs show sodium 138, potassium 4, BUN 17, creatinine 1.29, NT- proBNP 94, Pro-Werner is not elevated Admission EKG: Sinus tachycardia right bundle branch block Imaging: Echo from 05/2023 shows an normal LV systolic function with mildly increased RV size, no significant valve dysfunction RVSP 33 mmHg Home medication Eliquis 5, Lipitor 40, Cardizem 180 mg daily, losartan 50 mg da dino REVIEW OF SYSTEMS: 14 point review of system is negative except what is mentioned above in HPI. PHYSICAL EXAMINATION: Neck: Brisk carotid upstroke, no jugular venous distention. Lungs: Clear to auscultation. Heart: Regular rate and rhythm, S1-S2, no murmur or rub. Abdomen: Soft nontender, positive bowel sounds. Extremities: No edema, intact distal pulses. Neuro: Alert, oritented, no focal deficits. Detailed neuro exam was not performed. ASSESSMENT: # Acute lower GI bleeding from colonic mass suspicious of malignancy, await biopsies # Paroxysmal atrial flutter. Prior history of flutter known since 2022 # Acute on chronic anemia # Advance COPD with moderate COPD exacerbation # Chronic tobacco smoker PLAN: Check TSH lipid HbA1c and magnesium level Give magnesium sulfate total of 4 g slow infusion Continue Cardizem cd 180 mg daily. Agree to add metoprolol 25 mg twice daily at this time. Discontinue losartan because of blood pressure being low normal Obtain updated echo Past Medical History Past Medical History: Atrial Flutter, COPD Additional Past Medical History / Comment(s): iireg heart rythym. Pt sees Dr Emery for his heart. COPD, Ex smoker. History of Any Multi-Drug Resistant Organisms: None Reported Past Surgical History: Tonsillectomy Past Anesthesia/Blood Transfusion Reactions: No Reported Reaction Smoking Status: Former smoker - Past Family History Father Family Medical History: Myocardial Infarction (OR) Additional Family Medical History / Comment(s): Father from heart attack at 65 years old. Mother Family Medical History: Cancer Additional Family Medical History / Comment(s): Ovarian cancer Medications and Allergies Home Medications Medication Instructions Recorded Confirmed Type Atorvastatin Calcium [Lipitor] 40 mg PO DAILY 06/04/23 02/20/25 History Albuterol Inhaler [Ventolin Hfa 2 puff INHALATION Q6H PRN 30 Days 06/16/23 02/20/25 Rx Inhaler] #1 each Apixaban [Eliquis] 5 mg PO BID #60 tab 06/16/23 02/20/25 Rx Diltiazem Cd [Cardizem CD] 180 mg PO DAILY #30 cap 06/16/23 02/20/25 Rx Losartan [Cozaar] 50 mg PO DAILY #30 tab 06/16/23 02/20/25 Rx Fluticasone/Vilanterol [Breo 1 puff INHALATION RT-DAILY 02/20/25 02/20/25 History Ellipta 200-25 Mcg Inhaler] Allergies Allergy/AdvReac Type Severity Reaction Status Date / Time Penicillins Allergy Unknown Verified 02/20/25 08:24 Childhood Physical Exam Vitals: Vital Signs Temp Pulse Pulse Pulse Resp BP Pulse Ox 02/22/25 16:38 76 02/22/25 16:23 76 02/22/25 14:00 98.5 F 65 18 112/66 100 02/22/25 12:50 92 02/22/25 12:39 92 02/22/25 08:43 88 02/22/25 08:33 84 96 02/22/25 08:00 16 02/22/25 07:15 98.2 F 60 18 115/80 96 02/22/25 02:16 99.0 F 94 16 114/66 96 02/21/25 21:13 86 02/21/25 21:03 90 02/21/25 19:41 99.0 F 88 18 116/60 90 L 02/21/25 17:46 98.6 F 104 H 19 103/62 90 L Intake and Output 02/22/25 02/22/25 02/22/25 06:59 14:59 22:59 Intake Total 1620 Output Total 300 Balance 1620 -300 Intake: Oral 1620 Output: Urine 300 Other: # Voids 4 # Bowel Movements 1 Weight 84.5 kg Results 02/22/25 03:07 02/22/25 03:07 CBC 02/22/25 Range/Units 03:07 WBC 20.23 H (4.50-10.00) X 10*3/uL RBC 3.53 L (4.40-5.60) X 10*6/uL Hgb 8.5 L (13.0-17.0) g/dL Hct 27.4 L (39.6-50.0) % Plt Count 279 (140-440) X 10*3/uL Comprehensive Metabolic Panel 02/22/25 Range/Units 03:07 Sodium 138 (135-145) mmol/L Potassium 4.0 (3.5-5.5) mmol/L Chloride 100 (96-109) mmol/L Carbon Dioxide 25.0 (21.6-31.8) mmol/L BUN 30.1 H (9.0-27.0) mg/dL Creatinine 1.3 (0.6-1.5) mg/dL Glucose 100 (70-110) mg/dL Calcium 8.8 (8.7-10.3) mg/dL Current Medications Generic Name Dose Route Start Last Admin Trade Name Freq PRN Reason Stop Dose Admin Albuterol Sulfate 2.5 mg 02/20/25 13:10 Albuterol Nebulized 2.5 Mg/3 Ml INHALATION RT-Q6H PRN Shortness Of Breath Albuterol/Ipratropium 3 ml 02/20/25 08:00 02/22/25 16:23 Ipratropium-Albuterol 3 Ml Neb INHALATION 3 ml RT-QID MANAV Administration Atorvastatin Calcium 40 mg 02/21/25 09:00 02/22/25 08:23 Atorvastatin 40 Mg Tab PO 40 mg DAILY MANAV Administration Azithromycin 500 mg 02/19/25 22:00 02/22/25 08:23 Azithromycin 500 Mg Tab PO 02/22/25 21:59 500 mg DAILY MANAV Administration Protocol Budesonide/Formoterol Fumarate 2 puff 02/20/25 08:00 02/22/25 08:28 Symbicort 160-4.5 Mcg Inhaler INHALATION 2 puff RT-BID MANAV Administration Diltiazem HCl 180 mg 02/19/25 22:30 02/22/25 08:23 Diltiazem Cd 180 Mg Cap.Er.24h PO 180 mg DAILY MANAV Administration Guaifenesin/Dextromethorphan 10 ml 02/20/25 03:32 02/20/25 04:13 Guaifenesin-Dm 100-10mg/5ml 10 Ml Cup PO 10 ml Q6HR PRN Administration Cough Sodium Chloride 1,000 mls @ 75 mls/hr 02/19/25 21:45 02/22/25 06:27 Saline 0.9% IV Not Given .[id number] MANAV Melatonin 1 mg 02/19/25 22:45 02/21/25 20:45 Melatonin 1 Mg Tab PO 1 mg HS MANAV Administration Metoprolol Tartrate 25 mg 02/22/25 10:15 02/22/25 11:33 Metoprolol Tartrate 25 Mg Tab PO 25 mg BID MANAV Administration Naloxone HCl 0.2 mg 02/19/25 21:45 Naloxone 0.4 Mg/Ml 1 Ml Vial IV Q2M PRN Opioid Reversal Pantoprazole Sodium 40 mg 02/20/25 09:00 02/22/25 08:24 Pantoprazole 40 Mg/10 Ml Vial IVP 40 mg DAILY MANAV Administration Simethicone 40 mg 02/21/25 23:00 02/21/25 23:14 Simethicone 40 Mg/0.6 Ml Drops 2,000 Mg/30 Ml Bottle PO 40 mg QID PRN Administration Bloating Intake and Output 02/22/25 02/22/25 02/22/25 06:59 14:59 22:59 Intake Total 1620 Output Total 300 Balance 1620 -300 Intake: Oral 1620 Output: Urine 300 Other: # Voids 4 # Bowel Movements 1 Weight 84.5 kg 02/22/25 03:07 02/22/25 03:07
[2025-02-22 22:01] LABS: Chol/HDL Ratio 3.28 Ratio; LDL Cholesterol,Calculated 46.1 mg/dL (0.0-131.0); Magnesium 2.3 mg/dL (1.5-2.4)
[2025-02-23] MEDS ORDERED: MAGNESIUM SULFATE-D5W PMX 1 GM in DEXTROSE/WATER 1 100ML.BAG IVPB SCH (07:54)
--- NOTE | 2025-02-23 09:10 | P.PN ---
Subjective Progress Note Date: 02/23/25 Patient is a 64-year-old male with past medical history significant for COPD, tobacco smoker, hypertension, atrial fibrillation normally anticoagulated on Eliquis.. He does follow in the pulmonary office with Dr. Hampton. He has severe COPD with an FEV1 45% of predicted. Normally maintained on Breo Ellipta maintenance inhaler as well as albuterol sulfate HFA inhaler as needed. Quit smoking cigarettes approximately 6 years ago. Comes into the emergency department yesterday evening with chief complaint of bright red blood per rectum. Noted to be short of breath in the ED, and his COPD was felt to be an exacerbation. A pulmonary consultation was placed for this reason. Workup in the emergency department including a chest x-ray showing flattening of the diaphragms and hyperinflation consistent with COPD no focal consolidations, pleural effusions, or pneumothoraces. CBC, with a WBC count of 21, hemoglobin 12.1, platelets 368. CMP: Sodium 135, potassium 4.9, chloride 100, serum bicarb 23, BUN 17, creatinine 1.29, glucose 160. LFTs unremarkable. EKG: Sinus tachycardia, rate 125 bpm, RBBB pattern. Stool occult was positive. GI services will see him for this. He is currently being evaluated emergency department room 23. He is resting comfortably on room air. Does not appear in any distress. Some minimal expiratory wheezes heard on auscultation. States his breathing is improved since receiving some breathing treatments down here in the ER. Denies any recent sick contacts. Denies any infectious symptoms. Endorses chronic cough, not much different from baseline. Denies any purulent sputum production. Denies fever/chills. Denies chest pain, heart palpitations, syncopal events, lower extremity edema. He has had 1 bright red bowel movements since being in the emergency department. While at home, yesterday, he had several bloody bowel movements, approximately once every hour of bright red blood. He has never had a colonoscopy in the past. Denies any hemorrhoids. Denies any rectal pain. Denies nausea, vomiting, hematemesis. Denies abdominal pain. Eliquis is cur rently on hold. Bedside telemetry appears sinus mechanism, rate 88 bpm. current vital signs: Heart rate 88 bpm, blood pressure 132/74 mmHg, SpO2 recording at 92% on room air. The patient is seen today February 21, 2025 in follow-up on the regular medical floor. He is currently awake and alert in no acute distress. He is sitting up at the bedside. Maintaining good O2 saturations in the 90s on room air. He has been afebrile. Hemodynamically stable. White count 20.5. Hemoglobin 8.7. Platelets 274. Sodium 134. Potassium 4.4. Bicarb 21. BUN 33. Creatinine 1.8. Glucose 112. Awaiting colonoscopy today. He remains on DuoNeb inhalations, Symbicort. Empiric antibiotics in the form of azithromycin. Protonix for GI prophylaxis. The patient is seen today February 22, 2025 in follow-up on the regular medical floor. This awake and alert in no acute distress. Maintaining O2 saturations in the 90s on 3 L/min per nasal cannula. Abnormalities. Evidence of COPD. FEV1 value is 45% of predicted. Colonoscopy did reveal a 5 cm polypoid transverse colon mass with ulcer at the base suspicious for malignancy status post multiple biopsies. Couple polyps status post polypectomies. Eliquis to be held. Surgery is planning for possible robotic colectomy on Monday. Remains on clear liquid diet only. Remains on DuoNeb and elations, Symbicort. Empiric antibiotics in the form of azithromycin. The patient is seen today February 23, 2025 in follow-up on the regular medical floor. He is sitting up in bed. Awake and alert in no acute distress. Maintaining good O2 saturations in the upper 90s on 3 L/min per nasal cannula. He has been afebrile. Hemodynamically stable. Continued on DuoNeb inhalations, Symbicort, prednisone. Breathing easier today. White count 20.2. Hemoglobin 8.5. Platelets 279. Sodium 138. Potassium 4.0. Bicarb 25. BUN 30. Creatinine 1.3. Glucose 100. Objective - Vital Signs Vital signs: Vital Signs Temp 98.7 F 02/23/25 01:40 Pulse 80 02/23/25 08:21 Resp 15 02/23/25 01:40 BP 106/64 02/23/25 01:40 Pulse Ox 92 L 02/23/25 08:09 FiO2 Intake & Output 02/22/25 02/23/25 02/23/25 18:59 06:59 18:59 Intake Total 2270 Output Total 300 Balance -300 2270 Weight 81.8 kg Intake: Oral 2270 Output: Urine 300 Other: Voiding Method Toilet # Voids 5 # Bowel Movements 1 - Exam GENERAL EXAM: Alert, 64-year-old male, sitting up in bed, on 3 L/min per nasal cannula, in no apparent distress. HEAD: Normocephalic. EYES: Normal reaction of pupils, equal size. NOSE: Clear with pink turbinates. THROAT: No erythema or exudates. NECK: No masses, no JVD. CHEST: No chest wall deformity. LUNGS: Equal air entry with no crackles, wheeze, rhonchi or dullness. CVS: S1 and S2 normal with no audible murmur, regular rhythm. ABDOMEN: No hepatosplenomegaly, normal bowel sounds, no guarding or rigidity. SPINE: No scoliosis or deformity SKIN: No rashes CENTRAL NERVOUS SYSTEM: No focal deficits, tone is normal in all 4 extremities. EXTREMITIES: There is no peripheral edema. No clubbing, no cyanosis. Peripheral pulses are intact. - Labs CBC & Chem 7: 02/22/25 03:07 02/22/25 03:07 Labs: Abnormal Lab Results - Last 24 Hours (Table) 02/22/25 02/22/25 02/22/25 Range/Units 03:07 03:07 03:07 WBC 20.23 H (4.50-10.00) X 10*3/uL RBC 3.53 L (4.40-5.60) X 10*6/uL Hgb 8.5 L (13.0-17.0) g/dL Hct 27.4 L (39.6-50.0) % MCV 77.6 L (80.0-97.0) FL MCH 24.1 L (27.0-32.0) pg MCHC 31.0 L (32.0-37.0) g/dL RDW 17.2 H (11.5-14.5) % Immature Gran # 0.08 H (0.00-0.04) X 10*3/uL Neutrophils # 17.10 H (1.80-7.70) X 10*3/uL Monocytes # 1.70 H (0.20-1.00) X 10*3/uL Eosinophils # 0 L (0.04-0.35) X 10*3/uL Anion Gap 13.00 H (4.00-12.00) mmol/L BUN 30.1 H (9.0-27.0) mg/dL BUN/Creatinine Ratio 23.15 H (12.00-20.00) Ratio Triglycerides 183.00 H (0.00-149.00) mg/dL HDL Cholesterol 36.30 L (40.00-60.00) mg/dL Assessment and Plan Assessment: Hematochezia. Colonoscopy revealed a 5 cm polypoid transverse colon mass with ulcer at the base suspicious for malignancy. Cytology pending. Plan is for possible robotic colectomy on 02/24/2025 Acute COPD exacerbation, chest x-ray showing flattening of the diaphragms and hyperinflation consistent with COPD but no focal consolidations, pleural effusions, or pneumothoraces Acute dyspnea, secondary to above, recovered Acute leukocytosis, possibly reactive Acute kidney injury, creatinine 1.8 Severe chronic obstructive pulmonary disease with an FEV1 45% of predicted at baseline. Normally maintained on a combination of Breo Ellipta maintenance inhaler and albuterol sulfate HFA inhaler as needed History of paroxysmal atrial fibrillation/flutter, anticoagulated with Eliquis, currently sinus mechanism Hypertension History of hyperlipidemia Former tobacco dependence, quit smoking cigarettes approximately 6 years ago Plan: The patient was seen and evaluated Labs and medications reviewed Stable and on 3 L nasal cannula Continue Symbicort, DuoNebs Continue prednisone Eliquis remains on hold Possible robotic colectomy on 02/24/2025 We will continue to follow I have personally seen and examined the patient, performed the documentation and the assessment and plan as written. Number of minutes spent on the visit: 10 Dictation was produced using [employer] dictation software. Please excuse any grammatical, word or spelling errors.
[2025-02-23 09:37] LABS: African American GFR (CKD) 81 (>60 ml/min/1.73 sqM); Anion Gap 4 mmol/L; Blood Urea Nitrogen 22 mg/dL (9-20); Calcium 8.3 mg/dL (8.4-10.2); Carbon Dioxide 29 mmol/L (22-30); Chloride 98 mmol/L (98-107); Glucose 113 mg/dL (74-99); Non-African American GFR(CKD) 70 (>60 ml/min/1.73 sqM); Potassium 3.5 mmol/L (3.5-5.1); Sodium 131 mmol/L (137-145)
[2025-02-23] MEDS: predniSONE 20 MG TAB PO SCH (09:59)
[2025-02-23 10:03] LABS: Basophils # (A) 0.01 X 10*3/uL (0.00-0.10); Basophils % (A) 0.1 %; Eosinophils # (A) 0.01 X 10*3/uL (0.04-0.35); Eosinophils % (A) 0.1 %; HCT 24.2 % (39.6-50.0); HGB 7.8 g/dL (13.0-17.0); Lymphocytes # (A) 1.15 X 10*3/uL (0.90-5.00); Lymphocytes % (A) 9.2 %; MCH 24.9 pg (27.0-32.0); MCHC 32.2 g/dL (32.0-37.0); MCV 77.3 FL (80.0-97.0); Mean Platelet Volume 10.9 FL (9.5-12.2); Monocytes # (A) 1.28 X 10*3/uL (0.20-1.00); Monocytes % (A) 10.2 %; NRBC Per 100 WBC 0 X 10*3/uL (0.00-0.01); Neutrophils # (A) 10.01 X 10*3/uL (1.80-7.70); Neutrophils % (A) 80.1 %; Platelet Count 209 X 10*3/uL (140-440); RBC 3.13 X 10*6/uL (4.40-5.60); RDW 16.9 % (11.5-14.5)
--- NOTE | 2025-02-23 13:11 | P.PN ---
Progress Note - Text Progress Note Date: 02/23/25 HISTORY OF PRESENT ILLNESS: No acute events overnight. Tolerating CLD. Patient had colonoscopy yesterday with GI which showed a polypoid lesion in Transverse Colon concerning for Malignancy. PHYSICAL EXAM: VITAL SIGNS: Reviewed. GENERAL: Well-developed in no acute distress. ABDOMEN: Soft. Nondistended. Nontender NEUROLOGIC: Alert and oriented. Cranial nerves II through XII grossly intact. ASSESSMENT: 1. Acute lower GI bleed possibly diverticular bleed 2. Abdominal ileus possibly due to GI bleed 3. Left inguinal hernia containing bowel. No evidence of obstruction on CT 4. Right inguinal hernia containing fat and anterior right tip of urinary bladder PLAN: - I discussed colonoscopy results with patient. I discussed possible Robotic Colectomy for patient scheduled for Monday in detail and answered all his questions. I boarded the patient for surgery Monday. However, after discussion with patient and his son, patient does not want to pursuit surgery. I explained to him that if this is colon cancer it will eventually likely lead to extensive morbidity and ultimately . Patient states he does not want surgery. - Ok for Regular Diet - Follow up Pathology - AM labs Joaquin Che DO [facility] [phone]
--- NOTE | 2025-02-23 15:35 | P.PN ---
Subjective Progress Note Date: 02/23/25 HISTORY OF PRESENTING ILLNESS: 64-year-old with past medical history of paroxysmal atrial fibrillation, COPD, tobacco smoker, hypertension. He comes to the emergency department on 02/21/2025 because of noticing bright red blood per rectum. For this he underwent colonoscopy which showed 5 cm polypoid transverse colon mass with ulcer at the base suspicious for malignancy. [employer] consulted for anticoagulation management in setting of lower GI bleeding and prior history of paroxysmal atrial fibrillation. He is known to Dr. Rodríguez 02/22/2025 Over last 24 hours patient has been going in and out of atrial flutter with RVR and normal sinus rhythm. On review of telemetry it appears to be atrial flutter which is intermittent and patient is going in and out of it. For this primary team added metoprolol tartrate 100 mg twice daily. He was also noticed to be borderline hypotensive for which I discontinued his home losartan. Patient appears to be distressed and depressed with the diagnosis of possible malignancy and is not wanting to proceed with any cancer therapy if you need 1. I think yo u would benefit from medical counseling. Admission Labs: Labs show sodium 138, potassium 4, BUN 17, creatinine 1.29, NT- proBNP 94, Pro-Werner is not elevated. A1c 5.8, TSH 1.6, LDL 119, TG 183 Admission EKG: Sinus tachycardia right bundle branch block. Telemetry did not show intermittent atrial flutter with RVR with heart rate of 150 bpm. Imaging: Echo from 05/2023 shows an normal LV systolic function with mildly increased RV size, no significant valve dysfunction RVSP 33 mmHg Home medication Eliquis 5, Lipitor 40, Cardizem 180 mg daily, losartan 50 mg daily 02/23/2025 Patient is seen and examined at bedside this a.m. He is very eager to go home. Is not wanting to get the bowel resection done during this admission and would like to come back on an outpatient basis for this. No further episodes of bleeding. Hemoglobin 7.8 today on admission it was 12.1 PHYSICAL EXAMINATION: Neck: Brisk carotid upstroke, no jugular venous distention. Lungs: Clear to auscultation. Heart: Regular rate and rhythm, S1-S2, no murmur or rub. Abdomen: Soft nontender, positive bowel sounds. Extremities: No edema, intact distal pulses. Neuro: Alert, oritented, no focal deficits. Detailed neuro exam was not performed. ASSESSMENT: # Acute lower GI bleeding from colonic mass suspicious of malignancy, await biopsies # Paroxysmal atrial flutter. Prior history of flutter known since 2022 # Acute on chronic anemia # Advance COPD with moderate COPD exacerbation # Chronic tobacco smoker PLAN: Repeat H&H tomorrow, as hemoglobin has been trending down. Continue Cardizem cd 180 mg daily. Continue metoprolol 25 mg twice daily at this time. Discontinue losartan because of blood pressure being low normal Obtain updated echo Objective - Vital Signs Vital signs: Vital Signs Temp 98.3 F 02/23/25 08:08 Pulse 84 02/23/25 15:33 Resp 18 02/23/25 08:08 BP 120/66 02/23/25 08:08 Pulse Ox 92 L 02/23/25 08:09 FiO2 Intake & Output 02/22/25 02/23/25 02/23/25 18:59 06:59 18:59 Intake Total 2270 300 Output Total 300 Balance -300 2270 300 Weight 81.8 kg Intake: Oral 2270 300 Output: Urine 300 Other: Voiding Method Toilet # Voids 5 # Bowel Movements 1 - Labs CBC & Chem 7: 02/23/25 06:29 02/23/25 06:29 Labs: Abnormal Lab Results - Last 24 Hours (Table) 02/22/25 02/23/25 02/23/25 Range/Units 03:07 06:29 06:29 WBC 12.50 H (4.50-10.00) X 10*3/uL RBC 3.13 L (4.40-5.60) X 10*6/uL Hgb 7.8 L (13.0-17.0) g/dL Hct 24.2 L (39.6-50.0) % MCV 77.3 L (80.0-97.0) FL MCH 24.9 L (27.0-32.0) pg RDW 16.9 H (11.5-14.5) % Neutrophils # 10.01 H (1.80-7.70) X 10*3/uL Monocytes # 1.28 H (0.20-1.00) X 10*3/uL Eosinophils # 0.01 L (0.04-0.35) X 10*3/uL Sodium 131 L (137-145) mmol/L BUN 22 H (9-20) mg/dL Glucose 113 H (74-99) mg/dL Calcium 8.3 L (8.4-10.2) mg/dL Triglycerides 183.00 H (0.00-149.00) mg/dL HDL Cholesterol 36.30 L (40.00-60.00) mg/dL
[2025-02-23] MEDS: LORazepam 1 MG TAB PO STA (21:04)
--- NOTE | 2025-02-23 23:36 | P.PN ---
Subjective Progress Note Date: 02/23/25 Patient 64-year-old male came in with complaints of bright red blood per rectum. Patient does have history of COPD apparently patient was in COPD exacerbation when he came in was started on systemic steroids inhalational treatments. Patient is not wheezing at this time patient is on room air at this time. Patient is on Eliquis at home for paroxysmal atrial fibrillation. Patient is presently sinus rhythm. Patient does have leukocytosis with white count of 15,000 came down from 20,000. Patient has COPD with FEV1 of 45%. CT of the abdomen was done which showed findings consistent with ileus and a large inguinal hernia sigmoid diverticulosis without any diverticulitis and prostatomegaly and incidental finding of cholelithiasis. 02/21/2025 Patient is eval today in follow-up he continues to report bright red blood per rectum and is currently undergoing a bowel prep he will be going for EGD co lonoscopy later on today. Eliquis remains on hold. He is known to have some scattered wheezing today does have history of emphysema. Will repeat a chest x- ray at this time. His creatinine was up to 1.8 today with a BUN of 43.2 sodium level 134. Will stop the IV fluids and order a chest x-ray. White blood cell count of 20.51, hemoglobin 8.7. 02/22/2025 Patient eval today resting in bed comfortably. He reports improvement in his breathing as compared to yesterday and his wheezing is significantly improved. He does continue on DuoNebs [id number]. Chest x-ray completed yesterday afternoon reveals left basilar atelectasis and findings suggestive of COPD. He has been going in and out of afib RVR. Currently normal sinus rhythm in the 90s. Lab cerebral white blood hemoglobin 8, hemoglobin 8, BUN 30 creatinine 1.3. Findings from EGD colonoscopy reveal multiple polyps status post polypectomy. There was a 5 cm polypoid transverse colon mass with ulcer at the base suspicious for malignancy status post multiple biopsies. Biopsy reports are pending. Patient continues to close good diet. Eliquis remain on hold for 2 more days. General surgery for evaluation. 02/23/2025 Patient evaluated today in follow up. He has no acute complaints today. Pending follow up with general surgery with family at the bedside today. Hgb 7.8. WBC down to 12.50. Sodium level 131. BUN 22, creatinine 1.10. Heart rate remains controlled in the 80s. Currently on 3L of oxygen via nasal cannula 93%. Review of Systems Constitutional: Denied any fatigue denied any fever. Cardio vascular: denied any chest pain, palpitations Gastrointestinal: denied any nausea, vomiting, diarrhea reports rectal bleeding Pulmonary: Denied any shortness of breath cough Neurologic denied any new focal deficits All inpatient medications were reviewed and appropriate changes in these medications as dictated in the interval history and assessment and plan. PHYSICAL EXAMINATION: GENERAL: The patient is alert and oriented x3, not in any acute distress. Well developed, well nourished. HEENT: Pupils are round and equally reacting to light. EOMI. No scleral icterus. No conjunctival pallor. Normocephalic, atraumatic. No pharyngeal erythema. No thyromegaly. CARDIOVASCULAR: S1 and S2 present. No murmurs, rubs, or gallops. PULMONARY: Faint Scattered wheezing ABDOMEN: Soft, nontender, nondistended, normoactive bowel sounds. No palpable organomegaly. MUSCULOSKELETAL: No joint swelling or deformity. EXTREMITIES: No cyanosis, clubbing, or pedal edema. NEUROLOGICAL: Gross neurological examination did not reveal any focal deficits. SKIN: No rashes. Assessment and plan - Lower GI bleed probably diverticular bleed - Status post colonoscopy with multiple polyps status post polypectomy; transverse colon mass suspicious for malignancy status post biopsy. - Incidental finding of ileus and gallstones without any symptoms of cholecystitis General Surgery consult - COPD with acute exacerbation on admission - Paroxysmal atrial fibrillation presently sinus rhythm hold off anticoagulation temporarily because of acute GI bleed - afib RVR better with metoprolol - Marijuana use - Leukocytosis: Can be reactive - Mild acute renal failure secondary to GI bleed DVT prophylaxis: Early ambulation Plan Add oral metoprolol twice daily and continue cardiac telemetry Continue inhaled steroids Add oral prednisone daily. Continue holding eliquis Clear liquid diet GI following General surgery consult and patient is scheduled for colectomy possible open tomorrow at [address] Chinedu CHOI after midnight Monitor electrolytes and renal function The impression and plan of care has been dictated by Daniela Dunn, Nurse Practitioner as directed. Dr. Rivera MD I have performed a history and physical examination and medical decision making of this patient, discussed the same with the dictator, and agree with the dictators assessment and plan as written, documented as a scribe. Based on total visit time, I have performed more than 50% of this visit. Objective - Vital Signs Vital signs: Vital Signs Temp 98.5 F 02/23/25 13:56 Pulse 87 02/23/25 20:58 Resp 18 02/23/25 13:56 BP 131/75 02/23/25 13:56 Pulse Ox 93 L 02/23/25 13:56 FiO2 Intake & Output 02/23/25 02/23/25 02/24/25 06:59 18:59 06:59 Intake Total 2270 300 Balance 2270 300 Weight 81.8 kg Intake: Oral 2270 300 Other: Voiding Method Toilet # Voids 5 3 # Bowel Movements 1 - Labs CBC & Chem 7: 02/23/25 06:29 02/23/25 06:29 Labs: Abnormal Lab Results - Last 24 Hours (Table) 02/23/25 02/23/25 Range/Units 06:29 06:29 WBC 12.50 H (4.50-10.00) X 10*3/uL RBC 3.13 L (4.40-5.60) X 10*6/uL Hgb 7.8 L (13.0-17.0) g/dL Hct 24.2 L (39.6-50.0) % MCV 77.3 L (80.0-97.0) FL MCH 24.9 L (27.0-32.0) pg RDW 16.9 H (11.5-14.5) % Neutrophils # 10.01 H (1.80-7.70) X 10*3/uL Monocytes # 1.28 H (0.20-1.00) X 10*3/uL Eosinophils # 0.01 L (0.04-0.35) X 10*3/uL Sodium 131 L (137-145) mmol/L BUN 22 H (9-20) mg/dL Glucose 113 H (74-99) mg/dL Calcium 8.3 L (8.4-10.2) mg/dL Assessment and Plan Time with Patient: Less than 30
[2025-02-24 08:13] LABS: Blood Urea Nitrogen 14.3 mg/dL (9.0-27.0); Calcium 8.6 mg/dL (8.7-10.3); Carbon Dioxide 27.8 mmol/L (21.6-31.8); Chloride 103 mmol/L (96-109); Glucose 113 mg/dL (70-110); Potassium 4.1 mmol/L (3.5-5.5); Sodium 139 mmol/L (135-145)
[2025-02-24 08:33] LABS: Basophils # (A) 0.01 X 10*3/uL (0.00-0.10); Basophils % (A) 0.1 %; Eosinophils # (A) 0 X 10*3/uL (0.04-0.35); Eosinophils % (A) 0 %; HCT 25.6 % (39.6-50.0); HGB 8.1 g/dL (13.0-17.0); Lymphocytes # (A) 0.96 X 10*3/uL (0.90-5.00); MCH 24.8 pg (27.0-32.0); MCHC 31.6 g/dL (32.0-37.0); MCV 78.5 FL (80.0-97.0); Mean Platelet Volume 10.4 FL (9.5-12.2); Monocytes % (A) 9.4 %; NRBC Per 100 WBC 0 X 10*3/uL (0.00-0.01); Neutrophils # (A) 8.67 X 10*3/uL (1.80-7.70); Platelet Count 270 X 10*3/uL (140-440); RBC 3.26 X 10*6/uL (4.40-5.60); RDW 16.4 % (11.5-14.5); WBC 10.69 X 10*3/uL (4.50-10.00)
--- NOTE | 2025-02-24 11:03 | P.PN ---
Subjective HISTORY OF PRESENTING ILLNESS: 64-year-old with past medical history of paroxysmal atrial fibrillation, COPD, tobacco smoker, hypertension. He comes to the emergency department on 02/21/2025 because of noticing bright red blood per rectum. For this he underwent colonoscopy which showed 5 cm polypoid transverse colon mass with ulcer at the base suspicious for malignancy. [employer] consulted for anticoagulation management in setting of lower GI bleeding and prior history of paroxysmal atrial fibrillation. He is known to Dr. Rodríguez 02/22/2025 Over last 24 hours patient has been going in and out of atrial flutter with RVR and normal sinus rhythm. On review of telemetry it appears to be atrial flutter which is intermittent and patient is going in and out of it. For this primary team added metoprolol tartrate 100 mg twice daily. He was also noticed to be borderline hypotensive for which I discontinued his home losartan. Patient debbie ears to be distressed and depressed with the diagnosis of possible malignancy and is not wanting to proceed with any cancer therapy if you need 1. I think you would benefit from medical counseling. Admission Labs: Labs show sodium 138, potassium 4, BUN 17, creatinine 1.29, NT- proBNP 94, Pro-Werner is not elevated. A1c 5.8, TSH 1.6, LDL 119, TG 183 Admission EKG: Sinus tachycardia right bundle branch block. Telemetry did not show intermittent atrial flutter with RVR with heart rate of 150 bpm. Imaging: Echo from 05/2023 shows an normal LV systolic function with mildly increased RV size, no significant valve dysfunction RVSP 33 mmHg Home medication Eliquis 5, Lipitor 40, Cardizem 180 mg daily, losartan 50 mg daily 02/23/2025 Patient is seen and examined at bedside this a.m. He is very eager to go home. Is not wanting to get the bowel resection done during this admission and would like to come back on an outpatient basis for this. No further episodes of bleeding. Hemoglobin 7.8 today on admission it was 12.1 02/24/2025 Patient seen and examined sitting in bed. He is wearing oxygen. He is very eager to go home and would like to schedule his bowel resection on an outpatient basis. He denies any further rectal bleeding. Laboratory data reviewed, hemoglobin 8.1, platelets 270. Telemetry looks like aflutter. Echocardiogram has been ordered and will be reviewed. PHYSICAL EXAMINATION: Neck: Brisk carotid upstroke, no jugular venous distention. Lungs: Clear to auscultation. Heart: Regular rate and rhythm, S1-S2, no murmur or rub. Abdomen: Soft nontender, positive bowel sounds. Extremities: No edema, intact distal pulses. Neuro: Alert, oritented, no focal deficits. Detailed neuro exam was not performed. ASSESSMENT: # Acute lower GI bleeding from colonic mass suspicious of malignancy, await biopsies # Paroxysmal atrial flutter. Prior history of flutter known since 2022 # Acute on chronic anemia # Advance COPD with moderate COPD exacerbation # Chronic tobacco smoker PLAN: Repeat EKG. Echo to be done and will be reviewed. Increase metoprolol to 50 mg BID. Continue to hold eliquis, once discharged he will go home OFF eliquis as well for upcoming surgery. If heart rate remains stable he can be discharged home to follow up closely with surgery as well as Dr. Rodríguez. Nurse Practitioner note has been reviewed, I agree with a documented findings and plan of care. Patient was seen and examined. Objective - Vital Signs Vital signs: Vital Signs Temp 98.2 F 02/24/25 07:03 Pulse 115 H 02/24/25 08:14 Resp 18 02/24/25 07:03 BP 131/69 02/24/25 07:03 Pulse Ox 98 02/24/25 08:03 FiO2 Intake & Output 02/23/25 02/24/25 02/24/25 18:59 06:59 18:59 Intake Total 300 540 Balance 300 540 Weight 81.1 kg Intake: Oral 300 540 Other: Voiding Method Toilet # Voids 3 # Bowel Movements 1 - Labs CBC & Chem 7: 02/24/25 02:38 02/24/25 02:38 Labs: Abnormal Lab Results - Last 24 Hours (Table) 02/24/25 02/24/25 Range/Units 02:38 02:38 WBC 10.69 H (4.50-10.00) X 10*3/uL RBC 3.26 L (4.40-5.60) X 10*6/uL Hgb 8.1 L (13.0-17.0) g/dL Hct 25.6 L (39.6-50.0) % MCV 78.5 L (80.0-97.0) FL MCH 24.8 L (27.0-32.0) pg MCHC 31.6 L (32.0-37.0) g/dL RDW 16.4 H (11.5-14.5) % Immature Gran # 0.05 H (0.00-0.04) X 10*3/uL Neutrophils # 8.67 H (1.80-7.70) X 10*3/uL Eosinophils # 0 L (0.04-0.35) X 10*3/uL Glucose 113 H (70-110) mg/dL Calcium 8.6 L (8.7-10.3) mg/dL
[2025-02-24] MEDS: METOPROLOL TARTRATE 25 MG TAB PO STA (11:31)
--- NOTE | 2025-02-24 11:34 | P.PN ---
Subjective Progress Note Date: 02/24/25 SURGICAL PROGRESS NOTE CHIEF COMPLAINT: GI bleed HISTORY OF PRESENT ILLNESS: Patient is status post colonoscopy with GI service that reported a 5 cm transverse colon mass with ulcer at the base suspicious for malignancy. Patient also had polyps in the cecum, hepatic flexure and descending colon and rectal sigmoid polyp and anal verge status post polypectomies. Surgical intervention for colon mass offered to patient. Patient has declined at this time. Due to family issues with not having help at home over the next month. Patient denies any abdominal pain. Denies any further blood in the stools. Patient seen by cardiology in regards to his atrial flutter. Currently off of Eliquis. Mildly tachycardic. On 3 L. Hemoglobin 8.1 patient on prednisone for his COPD. PHYSICAL EXAM: VITAL SIGNS: Reviewed. GENERAL: Well-developed in no acute distress. ABDOMEN: Soft. Nondistended. Nontender NEUROLOGIC: Alert and oriented. Cranial nerves II through XII grossly intact. ASSESSMENT: 1. Acute lower GI bleed with colonoscopy showing a transverse colon mass with ulcer suspicious for malignancy 2. Abdominal ileus possibly due to GI bleed 3. Left inguinal hernia containing bowel. No evidence of obstruction on CT 4. Right inguinal hernia containing fat and anterior right tip of urinary bladder PLAN: -Patient would like to have bowel resection completed outpatient -Follow-up on colonoscopy biopsy results -Continue to hold Eliquis -Continue to medically optimize patient Physician Desk Editor note has been reviewed by physician. Signing provider agrees with the documented findings, assessment, and plan of care. Objective - Vital Signs Vital signs: Vital Signs Temp 98.2 F 02/24/25 07:03 Pulse 115 H 02/24/25 08:14 Resp 18 02/24/25 07:03 BP 131/69 02/24/25 07:03 Pulse Ox 98 02/24/25 08:03 FiO2 Intake & Output 02/23/25 02/24/25 02/24/25 18:59 06:59 18:59 Intake Total 300 540 Balance 300 540 Weight 81.1 kg Intake: Oral 300 540 Other: Voiding Method Toilet # Voids 3 # Bowel Movements 1 - Labs CBC & Chem 7: 02/24/25 02:38 02/24/25 02:38 Labs: Abnormal Lab Results - Last 24 Hours (Table) 02/24/25 02/24/25 Range/Units 02:38 02:38 WBC 10.69 H (4.50-10.00) X 10*3/uL RBC 3.26 L (4.40-5.60) X 10*6/uL Hgb 8.1 L (13.0-17.0) g/dL Hct 25.6 L (39.6-50.0) % MCV 78.5 L (80.0-97.0) FL MCH 24.8 L (27.0-32.0) pg MCHC 31.6 L (32.0-37.0) g/dL RDW 16.4 H (11.5-14.5) % Immature Gran # 0.05 H (0.00-0.04) X 10*3/uL Neutrophils # 8.67 H (1.80-7.70) X 10*3/uL Eosinophils # 0 L (0.04-0.35) X 10*3/uL Glucose 113 H (70-110) mg/dL Calcium 8.6 L (8.7-10.3) mg/dL
--- NOTE | 2025-02-24 14:24 | P.PN ---
Subjective Progress Note Date: 02/24/25 02/24/2025, patient is being seen for a follow-up. The patient is still having some mild respiratory distress even at rest. He is being treated for an acute COPD exacerbation. He does not have advanced COPD. He was hospitalized for hematochezia and he underwent a colonoscopy with a 5 cm polypoid transverse colon lesion/mass identified suspicious for malignancy. The patient was advised to undergo a robotic colectomy. However, the patient is quite hesitant to undergo this procedure especially with his ongoing difficulties in breathing and COPD exacerbation. His blood work from today shows a white cell count of 10.6 with a hemoglobin of 8.1 and a platelet count of 270. Sodium is at 139, BUN is 14 with a creatinine of 1.0. Potassium is at 4.1. He is a former smoker. The patient remains on DuoNeb nebulized hematology clinic, Symbicort 2 puffs twice a day and is also on prednisone 40 mg p.o. daily. He is receiving IV iron. He is currently on room air oxygen. Biopsy results have not been completed. Objective - Vital Signs Vital signs: Vital Signs Temp 98.2 F 02/24/25 07:03 Pulse 108 H 02/24/25 11:52 Resp 18 02/24/25 07:03 BP 131/69 02/24/25 07:03 Pulse Ox 98 02/24/25 08:03 FiO2 Intake & Output 02/23/25 02/24/25 02/24/25 18:59 06:59 18:59 Intake Total 300 540 Balance 300 540 Weight 81.1 kg Intake: Oral 300 540 Other: Voiding Method Toilet # Voids 3 # Bowel Movements 1 - Exam GENERAL EXAM: Alert, 64-year-old male, sitting up in bed, on room air oxygen in no apparent distress. HEAD: Normocephalic. EYES: Normal reaction of pupils, equal size. NOSE: Clear with pink turbinates. THROAT: No erythema or exudates. NECK: No masses, no JVD. CHEST: No chest wall deformity. LUNGS: Equal air entry with significant prolongation of the exhalation phase of breathing and expiratory wheezes heard throughout the lung mejia bilaterally. CVS: S1 and S2 normal with no audible murmur, regular rhythm. ABDOMEN: No hepatosplenomegaly, normal bowel sounds, no guarding or rigidity. SPINE: No scoliosis or deformity SKIN: No rashes CENTRAL NERVOUS SYSTEM: No focal deficits, tone is normal in all 4 extremities. EXTREMITIES: There is no peripheral edema. No clubbing, no cyanosis. Peripheral pulses are intact. - Labs CBC & Chem 7: 02/24/25 02:38 02/24/25 02:38 Labs: Abnormal Lab Results - Last 24 Hours (Table) 02/24/25 02/24/25 Range/Units 02:38 02:38 WBC 10.69 H (4.50-10.00) X 10*3/uL RBC 3.26 L (4.40-5.60) X 10*6/uL Hgb 8.1 L (13.0-17.0) g/dL Hct 25.6 L (39.6-50.0) % MCV 78.5 L (80.0-97.0) FL MCH 24.8 L (27.0-32.0) pg MCHC 31.6 L (32.0-37.0) g/dL RDW 16.4 H (11.5-14.5) % Immature Gran # 0.05 H (0.00-0.04) X 10*3/uL Neutrophils # 8.67 H (1.80-7.70) X 10*3/uL Eosinophils # 0 L (0.04-0.35) X 10*3/uL Glucose 113 H (70-110) mg/dL Calcium 8.6 L (8.7-10.3) mg/dL Assessment and Plan Plan: Hematochezia. Colonoscopy revealed a 5 cm polypoid transverse colon mass with ulcer at the base suspicious for malignancy. Cytology pending. Plan is for possible robotic colectomy on 02/24/2025 Acute COPD exacerbation, chest x-ray showing flattening of the diaphragms and hyperinflation consistent with COPD but no focal consolidations, pleural effusions, or pneumothoraces Acute dyspnea, secondary to above, attributed to COPD exacerbation Acute leukocytosis, possibly reactive Acute kidney injury, creatinine 1.8, and the creatinine has normalized Severe chronic obstructive pulmonary disease with an FEV1 45% of predicted at baseline. Normally maintained on a combination of Breo Ellipta maintenance inhaler and albuterol sulfate HFA inhaler as needed History of paroxysmal atrial fibrillation/flutter, anticoagulated with Eliquis, currently sinus mechanism Hypertension History of hyperlipidemia Former tobacco dependence, quit smoking cigarettes approximately 6 years ago Plan: Patient continues to be short of breath even at rest and she is actively bronchospastic and wheezy. Not a good candidate for colectomy at this point in time. Suggest giving him more than 30 COPD saturation improves. Stable on room air oxygen Continue Symbicort, DuoNebs Continue prednisone 40 mg p.o. daily Dajalukasz remains on hold Will discuss with general surgery. I prefer to hold off on his surgery till his COPD exacerbation is further improved and stabilized. This can be done at a later stage on outpatient basis. Awaiting final pathology from the colonoscopy and the biopsies We will continue to follow Time with Patient: Greater than 30
[2025-02-24] MEDS: SODIUM FERRIC GLUCONAT-SUCROSE 125 MG in SODIUM CHLORIDE 0.9% 100 ML IVPB ONE (16:49)
--- NOTE | 2025-02-24 17:35 | CA ---
Transthoracic Echo Report Name: Dylan Richmond Age: 64 Gender: M : 1960 Exam Date: 02/24/2025 09:20 Exam Location: [facility] Ht (in): 72 Wt (lb): 186 Ordering Physician: Clark Rushing MD ([id number]) Attending/Referring Phys: Surgical Dental Assistant Leila Duque RDCS Procedure CPT: Indications: atrial flutter Cardiac Hx: Technical Quality: Fair Contrast 1: Total Dose (mL): Contrast 2: Total Dose (mL): MEASUREMENTS (Male / Female) Normal Values 2D ECHO LV Diastolic Diameter PLAX 4.6 cm 4.2 - 5.9 / 3.9 - 5.3 cm LV Systolic Diameter PLAX 2.3 cm IVS Diastolic Thickness 1.1 cm 0.6 - 1.0 / 0.6 - 0.9 cm LVPW Diastolic Thickness 1.2 cm 0.6 - 1.0 / 0.6 - 0.9 cm LV Relative Wall Thickness 0.5 RV Internal Dim ED PLAX 2.5 cm LVOT Diameter 2.3 cm LA Systolic Diameter LX 3.1 cm 3.0 - 4.0 / 2.7 - 3.8 cm LV Diastolic Volume MOD BP 79.5 cm??? 67 - 155 / 56 - 104 cm??? LV Systolic Volume MOD BP 39.9 cm??? 22 - 58 / 19 - 49 cm??? LV Ejection Fraction MOD BP 49.8 % >= 55 % LV Cardiac Index MOD BP 1979.4 cm???/min???m??? LV Diastolic Volume MOD 4C 86.5 cm??? LV Systolic Volume MOD 4C 44.1 cm??? LV Ejection Fraction MOD 4C 49.1 % LV Cardiac Index MOD 4C 2125.0 cm???/min???m??? LV Diastolic Length 4C 8.1 cm LV Systolic Length 4C 7.1 cm LV Diastolic Volume MOD 2C 69.3 cm??? LV Systolic Volume MOD 2C 36.0 cm??? LV Ejection Fraction MOD 2C 48.0 % LV Cardiac Index MOD 2C 1662.6 cm???/min???m??? LV Diastolic Length 2C 7.7 cm LV Systolic Length 2C 7.0 cm M-MODE Aortic Root Diameter MM 3.4 cm LA Systolic Diameter MM 3.7 cm LA Ao Ratio MM 1.1 AV Cusp Separation MM 1.8 cm DOPPLER Mitral E Point Velocity 70.4 cm/s Mitral A Point Velocity 99.7 cm/s Mitral E to A Ratio 0.7 MV Deceleration Time 206.4 ms MV E' Velocity 7.9 cm/s Mitral E to MV E' Ratio 8.9 TR Peak Velocity 240.8 cm/s TR Peak Gradient 23.2 mmHg FINDINGS Left Ventricle Left ventricular ejection fraction is estimated at 50-55%. Mildly increased septal wall thickness. Fairly well-preserved left ventricular ejection fraction. Left ventricular cavity size normal. Right Ventricle Mild right ventricular dilatation. Right ventricular systolic pressure within normal limits. Right Atrium Mild right atrial dilatation. Left Atrium Mild left atrial dilatation. Mitral Valve Structurally normal mitral valve. Mild mitral regurgitation. No mitral stenosis. Aortic Valve Trileaflet aortic valve. No aortic valve stenosis or regurgitation. Tricuspid Valve Structurally normal tricuspid valve. Mild tricuspid regurgitation. No tricuspid stenosis. Pulmonic Valve Structurally normal pulmonic valve. Trace pulmonic regurgitation. No pulmonic stenosis. Pericardium No pericardial or pleural effusion. Aorta Normal size aortic root and proximal ascending aorta. CONCLUSIONS Normal LV size with fairly well-preserved systolic function. Mild mitral and tricuspid regurgitation. No pulmonary hypertension. No pericardial effusion Previewed by: Dr. Mireille Ruiz MD (Electronically Signed) Final Date: 24 Feb 2025 17:34
--- NOTE | 2025-02-24 20:48 | P.PN ---
Subjective Progress Note Date: 02/24/25 Patient 64-year-old male came in with complaints of bright red blood per rectum. Patient does have history of COPD apparently patient was in COPD exacerbation when he came in was started on systemic steroids inhalational treatments. Patient is not wheezing at this time patient is on room air at this time. Patient is on Eliquis at home for paroxysmal atrial fibrillation. Patient is presently sinus rhythm. Patient does have leukocytosis with white count of 15,000 came down from 20,000. Patient has COPD with FEV1 of 45%. CT of the abdomen was done which showed findings consistent with ileus and a large inguinal hernia sigmoid diverticulosis without any diverticulitis and prostatomegaly and incidental finding of cholelithiasis. 02/21/2025 Patient is eval today in follow-up he continues to report bright red blood per rectum and is currently undergoing a bowel prep he will be going for EGD co lonoscopy later on today. Eliquis remains on hold. He is known to have some scattered wheezing today does have history of emphysema. Will repeat a chest x- ray at this time. His creatinine was up to 1.8 today with a BUN of 43.2 sodium level 134. Will stop the IV fluids and order a chest x-ray. White blood cell count of 20.51, hemoglobin 8.7. 02/22/2025 Patient eval today resting in bed comfortably. He reports improvement in his breathing as compared to yesterday and his wheezing is significantly improved. He does continue on DuoNebs [id number]. Chest x-ray completed yesterday afternoon reveals left basilar atelectasis and findings suggestive of COPD. He has been going in and out of afib RVR. Currently normal sinus rhythm in the 90s. Lab cerebral white blood hemoglobin 8, hemoglobin 8, BUN 30 creatinine 1.3. Findings from EGD colonoscopy reveal multiple polyps status post polypectomy. There was a 5 cm polypoid transverse colon mass with ulcer at the base suspicious for malignancy status post multiple biopsies. Biopsy reports are pending. Patient continues to close good diet. Eliquis remain on hold for 2 more days. General surgery for evaluation. 02/23/2025 Patient evaluated today in follow up. He has no acute complaints today. Pending follow up with general surgery with family at the bedside today. Hgb 7.8. WBC down to 12.50. Sodium level 131. BUN 22, creatinine 1.10. Heart rate remains controlled in the 80s. Currently on 3L of oxygen via nasal cannula 93%. 02/24/2025 Patient evaluated today in follow up on the medical floor. Pulmonary recommending one more night before discharge tomorrow. Patient opted out of the colectomy today. He wants to follow up with general surgery in the office on discharge. Heart rate in the 115's today. Review of Systems Constitutional: Denied any fatigue denied any fever. Cardio vascular: denied any chest pain, palpitations Gastrointestinal: denied any nausea, vomiting, diarrhea reports rectal bleeding Pulmonary: Denied any shortness of breath cough Neurologic denied any new focal deficits All inpatient medications were reviewed and appropriate changes in these medications as dictated in the interval history and assessment and plan. PHYSICAL EXAMINATION: GENERAL: The patient is alert and oriented x3, not in any acute distress. Well developed, well nourished. HEENT: Pupils are round and equally reacting to light. EOMI. No scleral icterus. No conjunctival pallor. Normocephalic, atraumatic. No pharyngeal erythema. No thyromegaly. CARDIOVASCULAR: S1 and S2 present. No murmurs, rubs, or gallops. PULMONARY: Faint Scattered wheezing ABDOMEN: Soft, nontender, nondistended, normoactive bowel sounds. No palpable organomegaly. MUSCULOSKELETAL: No joint swelling or deformity. EXTREMITIES: No cyanosis, clubbing, or pedal edema. NEUROLOGICAL: Gross neurological examination did not reveal any focal deficits. SKIN: No rashes. Assessment and plan - Lower GI bleed probably diverticular bleed - Status post colonoscopy with multiple polyps status post polypectomy; transverse colon mass suspicious for malignancy status post biopsy. - Incidental finding of ileus and gallstones without any symptoms of cholecystitis General Surgery consult - COPD with acute exacerbation on admission - Paroxysmal atrial fibrillation presently sinus rhythm hold off anticoagulation temporarily because of acute GI bleed - afib RVR better with metoprolol - Marijuana use - Leukocytosis: Can be reactive - Mild acute renal failure secondary to GI bleed DVT prophylaxis: Early ambulation Plan Metoprolol up to 50 my twice daily Continue cardiac telemetry Continue inhaled steroids Continue oral prednisone daily Continue holding eliquis Clear liquid diet GI following Patient has opted to not undergo colectomy today and wants to follow up with general surgery outpatient. Pulmonary recommend to keep the patient overnight. Monitor electrolytes and renal function The impression and plan of care has been dictated by Daniela Dunn Nurse Practitioner as directed. Dr. Rivera MD I have performed a history and physical examination and medical decision making of this patient, discussed the same with the dictator, and agree with the dictators assessment and plan as written, documented as a scribe. Based on total visit time, I have performed more than 50% of this visit. Objective - Vital Signs Vital signs: Vital Signs Temp 98.2 F 02/24/25 19:42 Pulse 103 H 02/24/25 20:37 Resp 18 02/24/25 19:42 BP 132/78 02/24/25 19:42 Pulse Ox 93 L 02/24/25 19:42 FiO2 Intake & Output 02/24/25 02/24/25 02/25/25 06:59 18:59 06:59 Intake Total 540 Balance 540 Weight 81.1 kg Intake: Oral 540 Other: Voiding Method Toilet # Voids 3 6 # Bowel Movements 1 3 - Labs CBC & Chem 7: 02/24/25 02:38 02/24/25 02:38 Labs: Abnormal Lab Results - Last 24 Hours (Table) 02/24/25 02/24/25 Range/Units 02:38 02:38 WBC 10.69 H (4.50-10.00) X 10*3/uL RBC 3.26 L (4.40-5.60) X 10*6/uL Hgb 8.1 L (13.0-17.0) g/dL Hct 25.6 L (39.6-50.0) % MCV 78.5 L (80.0-97.0) FL MCH 24.8 L (27.0-32.0) pg MCHC 31.6 L (32.0-37.0) g/dL RDW 16.4 H (11.5-14.5) % Immature Gran # 0.05 H (0.00-0.04) X 10*3/uL Neutrophils # 8.67 H (1.80-7.70) X 10*3/uL Eosinophils # 0 L (0.04-0.35) X 10*3/uL Glucose 113 H (70-110) mg/dL Calcium 8.6 L (8.7-10.3) mg/dL Assessment and Plan Time with Patient: Less than 30
[2025-02-24] MEDS: LORazepam 1 MG TAB PO STA (23:37)
[2025-02-24] MEDS: METOPROLOL TARTRATE 50 MG TAB PO SCH (23:37)
[2025-02-25 07:41] VITALS: TEMP 98.3
[2025-02-25] MEDS: METOPROLOL TARTRATE 50 MG TAB PO STA (10:22)
--- NOTE | 2025-02-25 10:42 | P.PN ---
Subjective HISTORY OF PRESENTING ILLNESS: 64-year-old with past medical history of paroxysmal atrial fibrillation, COPD, tobacco smoker, hypertension. He comes to the emergency department on 02/21/2025 because of noticing bright red blood per rectum. For this he underwent colonoscopy which showed 5 cm polypoid transverse colon mass with ulcer at the base suspicious for malignancy. Sales And Production Manager consulted for anticoagulation management in setting of lower GI bleeding and prior history of paroxysmal atrial fibrillation. He is known to Dr. Rodríguez 02/22/2025 Over last 24 hours patient has been going in and out of atrial flutter with RVR and normal sinus rhythm. On review of telemetry it appears to be atrial flutter which is intermittent and patient is going in and out of it. For this primary team added metoprolol tartrate 100 mg twice daily. He was also noticed to be borderline hypotensive for which I discontinued his home losartan. Patient debbie ears to be distressed and depressed with the diagnosis of possible malignancy and is not wanting to proceed with any cancer therapy if you need 1. I think you would benefit from medical counseling. Admission Labs: Labs show sodium 138, potassium 4, BUN 17, creatinine 1.29, NT- proBNP 94, Pro-Werner is not elevated. A1c 5.8, TSH 1.6, LDL 119, TG 183 Admission EKG: Sinus tachycardia right bundle branch block. Telemetry did not show intermittent atrial flutter with RVR with heart rate of 150 bpm. Imaging: Echo from 05/2023 shows an normal LV systolic function with mildly increased RV size, no significant valve dysfunction RVSP 33 mmHg Home medication Eliquis 5, Lipitor 40, Cardizem 180 mg daily, losartan 50 mg daily 02/23/2025 Patient is seen and examined at bedside this a.m. He is very eager to go home. Is not wanting to get the bowel resection done during this admission and would like to come back on an outpatient basis for this. No further episodes of bleeding. Hemoglobin 7.8 today on admission it was 12.1 02/24/2025 Patient seen and examined sitting in bed. He is wearing oxygen. He is very eager to go home and would like to schedule his bowel resection on an outpatient basis. He denies any further rectal bleeding. Laboratory data reviewed, hemoglobin 8.1, platelets 270. Telemetry looks like aflutter. Echocardiogram has been ordered and will be reviewed. 02/25/2025 Patient seen and examined resting comfortably in bed in no acute distress. He continues to be in atrial fibs on telemetry heart rate between 90 and 120. Blood pressure 125/71. Pulmonary care team recommended he stay to optimize his breathing. PHYSICAL EXAMINATION: Neck: Brisk carotid upstroke, no jugular venous distention. Lungs: Clear to auscultation. Heart: Regular rate and rhythm, S1-S2, no murmur or rub. Abdomen: Soft nontender, positive bowel sounds. Extremities: No edema, intact distal pulses. Neuro: Alert, oritented, no focal deficits. Detailed neuro exam was not performed. ASSESSMENT: # Acute lower GI bleeding from colonic mass suspicious of malignancy, await biopsies # Paroxysmal atrial flutter. Prior history of flutter known since 2022 # Acute on chronic anemia # Advance COPD with moderate COPD exacerbation # Chronic tobacco smoker PLAN: Increase metoprolol to 50 mg 3 times daily for better heart rate control. Stable for discharge from a cardiac perspective. Continue to hold Eliquis pending upcoming surgery with anemia. Follow-up as an outpatient with Dr. Rodríguez as planned. Nurse Practitioner note has been reviewed, I agree with a documented findings and plan of care. Patient was seen and examined. Objective - Vital Signs Vital signs: Vital Signs Temp 98.3 F 02/25/25 06:59 Pulse 78 02/25/25 08:48 Resp 20 02/25/25 06:59 BP 125/71 02/25/25 06:59 Pulse Ox 97 02/25/25 08:39 FiO2 Intake & Output 02/24/25 02/25/25 02/25/25 18:59 06:59 18:59 Weight 81.5 kg Other: Voiding Method Toilet # Voids 6 3 # Bowel Movements 3 - Labs CBC & Chem 7: 02/24/25 02:38 02/24/25 02:38
--- NOTE | 2025-02-25 11:39 | P.PN ---
Subjective Progress Note Date: 02/25/25 02/24/2025, patient is being seen for a follow-up. The patient is still having some mild respiratory distress even at rest. He is being treated for an acute COPD exacerbation. He does not have advanced COPD. He was hospitalized for hematochezia and he underwent a colonoscopy with a 5 cm polypoid transverse colon lesion/mass identified suspicious for malignancy. The patient was advised to undergo a robotic colectomy. However, the patient is quite hesitant to undergo this procedure especially with his ongoing difficulties in breathing and COPD exacerbation. His blood work from today shows a white cell count of 10.6 with a hemoglobin of 8.1 and a platelet count of 270. Sodium is at 139, BUN is 14 with a creatinine of 1.0. Potassium is at 4.1. He is a former smoker. The patient remains on DuoNeb nebulized hematology clinic, Symbicort 2 puffs twice a day and is also on prednisone 40 mg p.o. daily. He is receiving IV iron. He is currently on room air oxygen. Biopsy results have not been completed. On 02/25/2025, the patient is feeling well. He is on room air oxygen. Non- smoker spastic and wheezy compared to yesterday. No new complaints for now. Remains on bronchodilators. Remains on steroids. No pleurisy. No hemoptysis. No chest pain. No evidence of any GI bleeding. Awaiting the final pathology from the colonoscopy and chronic polyp biopsy. The white cell count of 10.6 with a hemoglobin of 8.1 and a platelet count of 270. No evidence of the GI bleed. BUN is 40 with a creatinine of 1 and a sodium levels at 139. Objective - Vital Signs Vital signs: Vital Signs Temp 98.3 F 02/25/25 06:59 Pulse 78 02/25/25 08:48 Resp 20 02/25/25 06:59 BP 125/71 02/25/25 06:59 Pulse Ox 97 02/25/25 08:39 FiO2 Intake & Output 02/24/25 02/25/25 02/25/25 18:59 06:59 18:59 Weight 81.5 kg Other: Voiding Method Toilet # Voids 6 3 # Bowel Movements 3 - Exam GENERAL EXAM: Alert, 64-year-old male, sitting up in bed, on room air oxygen in no apparent distress. HEAD: Normocephalic. EYES: Normal reaction of pupils, equal size. NOSE: Clear with pink turbinates. THROAT: No erythema or exudates. NECK: No masses, no JVD. CHEST: No chest wall deformity. LUNGS: Equal air entry with significant prolongation of the exhalation phase of breathing and expiratory wheezes heard throughout the lung mejia bilaterally. CVS: S1 and S2 normal with no audible murmur, regular rhythm. ABDOMEN: No hepatosplenomegaly, normal bowel sounds, no guarding or rigidity. SPINE: No scoliosis or deformity SKIN: No rashes CENTRAL NERVOUS SYSTEM: No focal deficits, tone is normal in all 4 extremities. EXTREMITIES: There is no peripheral edema. No clubbing, no cyanosis. Peripheral pulses are intact. - Labs CBC & Chem 7: 02/24/25 02:38 02/24/25 02:38 Assessment and Plan Plan: Hematochezia. Colonoscopy revealed a 5 cm polypoid transverse colon mass with ulcer at the base suspicious for malignancy. Cytology pending. Plan is for possible robotic colectomy on 02/24/2025 Acute COPD exacerbation, chest x-ray showing flattening of the diaphragms and hyperinflation consistent with COPD but no focal consolidations, pleural effusions, or pneumothoraces Acute dyspnea, secondary to above, attributed to COPD exacerbation Acute leukocytosis, possibly reactive Acute kidney injury, creatinine 1.8, and the creatinine has normalized Severe chronic obstructive pulmonary disease with an FEV1 45% of predicted at baseline. Normally maintained on a combination of Breo Ellipta maintenance inhaler and albuterol sulfate HFA inhaler as needed History of paroxysmal atrial fibrillation/flutter, anticoagulated with Eliquis, currently sinus mechanism Hypertension History of hyperlipidemia Former tobacco dependence, quit smoking cigarettes approximately 6 years ago Plan: The patient is clinically improving and the patient is less bronchospastic and wheezy compared to yesterday Continue same treatment I will give the patient prednisone burst taper at time of discharge Not a good candidate for colectomy at this point in time. This can be pursued on an outpatient basis once the patient COPD is more stable Stable on room air oxygen Continue Symbicort, DuoNebs Continue prednisone 40 mg p.o. daily Eliquis remains on hold Will discuss with general surgery. I prefer to hold off on his surgery till his COPD exacerbation is further improved and stabilized. This can be done at a later stage on outpatient basis. Awaiting final pathology from the colonoscopy and the biopsies We will continue to follow, possible discharge within next 24 hours to be followed up on outpatient basis. Surgery is to follow on an outpatient basis
--- NOTE | 2025-02-25 13:50 | P.PN ---
Subjective Progress Note Date: 02/25/25 SURGICAL PROGRESS NOTE CHIEF COMPLAINT: GI bleed HISTORY OF PRESENT ILLNESS: Patient is status post colonoscopy with GI service that reported a 5 cm transverse colon mass with ulcer at the base suspicious for malignancy. Patient also had polyps in the cecum, hepatic flexure and descending colon and rectal sigmoid polyp and anal verge status post polypectomies. Patient denies any abdominal pain. Denies any further blood in the stools. He is tolerating regular diet. He is on prednisone for COPD e xacerbation. Pulmonary recommendations noted to hold off on surgery until COPD exacerbation has improved. Biopsy results from colonoscopy pending. PHYSICAL EXAM: VITAL SIGNS: Reviewed. GENERAL: Well-developed in no acute distress. ABDOMEN: Soft. Nondistended. Nontender NEUROLOGIC: Alert and oriented. Cranial nerves II through XII grossly intact. ASSESSMENT: 1. Acute lower GI bleed with colonoscopy showing a transverse colon mass with ulcer suspicious for malignancy 2. Abdominal ileus possibly due to GI bleed 3. Left inguinal hernia containing bowel. No evidence of obstruction on CT 4. Right inguinal hernia containing fat and anterior right tip of urinary bladder PLAN: -Patient can be discharged from surgical standpoint -Patient to follow-up outpatient regarding surgical intervention on the transverse colon mass -Continue to medically optimize patient - Surgical service will sign off. Please call with any questions or concerns. Physician Mechanical Maintenance Foreman note has been reviewed by physician. Signing provider agrees with the documented findings, assessment, and plan of care. Objective - Vital Signs Vital signs: Vital Signs Temp 98.3 F 02/25/25 06:59 Pulse 78 02/25/25 12:20 Resp 20 02/25/25 06:59 BP 125/71 02/25/25 06:59 Pulse Ox 97 02/25/25 08:39 FiO2 Intake & Output 02/24/25 02/25/25 02/25/25 18:59 06:59 18:59 Weight 81.5 kg Other: Voiding Method Toilet # Voids 6 3 # Bowel Movements 3 - Labs CBC & Chem 7: 02/24/25 02:38 02/24/25 02:38
[2025-02-25 13:55] VITALS: BP 108/66; PULSE 79; RESP 18
[2025-02-25] MEDS ORDERED: METOPROLOL TARTRATE 50 MG TAB PO SCH (16:00)
--- NOTE | 2025-02-26 05:24 | DS ---
DISCHARGE SUMMARY FINAL DIAGNOSES: 1. Lower gastrointestinal bleed, possibly diverticular bleed, improved. 2. Status post colonoscopy and polypectomy, status post transverse colon mass suspicious for malignancy. 3. Incidental finding of gallstones. 4. Chronic obstructive pulmonary disease acute exacerbation. 5. Paroxysmal atrial fibrillation. DISCHARGE DISPOSITION: The patient is being discharged in stable condition and guarded prognosis Discharge cleared by multiple consultants. HISTORY OF PRESENT ILLNESS: This is a 64-year-old gentleman with a past medical problems, admitted with GI bleed, possible diverticular bleed. Eliquis was stopped. Colonoscopy did show findings as mentioned above. The patient was scheduled for possible surgery in the outpatient. Cardiology saw the patient, recommended to hold off the Eliquis till the surgery was over. Otherwise, dose of beta blockers has been adjusted. Currently, the patient is stable. PHYSICAL EXAMINATION: CARDIOVASCULAR: S1, S2. ABDOMEN: Soft. The patient will be discharged with Lopressor 50 mg t.i.d. and Medrol Dosepak and hold Eliquis and Cozaar as mentioned earlier. Follow up with multiple consultants and Dr. Castro as recommended. MMODL / IJN: [id number] / MTDD
== END 2025-02-25 15:37 | disposition home or self-care (01) | DRG 378 ==
LOC: EC 17:37 → 3SCARD 21:47 → 4SSUR 02-20 11:22
PROVIDERS: ADMIT Hospitalist; ATTEND Hospitalist
PROC: 0DBH8ZX Excision of Cecum, Via Natural or Artificial Opening Endoscopic, Diagnostic (ICD-10-PCS; 2025-02-21)
PROC: 0DBL8ZX Excision of Transverse Colon, Via Natural or Artificial Opening Endoscopic, Diagnostic (ICD-10-PCS; 2025-02-21)
PROC: 0DBN8ZX Excision of Sigmoid Colon, Via Natural or Artificial Opening Endoscopic, Diagnostic (ICD-10-PCS; 2025-02-21)
PROC: 0DBP8ZX Excision of Rectum, Via Natural or Artificial Opening Endoscopic, Diagnostic (ICD-10-PCS; 2025-02-21)
PROC: 0DBM8ZX Excision of Descending Colon, Via Natural or Artificial Opening Endoscopic, Diagnostic (ICD-10-PCS; 2025-02-21)
PROC: 0W3P8ZZ Control Bleeding in Gastrointestinal Tract, Via Natural or Artificial Opening Endoscopic (ICD-10-PCS; 2025-02-21)
PROC: 0DBM8ZZ Excision of Descending Colon, Via Natural or Artificial Opening Endoscopic (ICD-10-PCS; principal; 2025-02-21 15:55)
PROC: 3E00XMZ Introduction of Pigment into Skin and Mucous Membranes, External Approach (ICD-10-PCS; 2025-02-21 15:55)
DX: K57.31 Diverticulosis of large intestine without perforation or abscess with bleeding (principal); I48.92 Unspecified atrial flutter; J44.1 Chronic obstructive pulmonary disease with (acute) exacerbation; K56.7 Ileus, unspecified; N17.9 Acute kidney failure, unspecified; I10 Essential (primary) hypertension; D64.9 Anemia, unspecified; I08.1 Rheumatic disorders of both mitral and tricuspid valves; J98.11 Atelectasis; I48.0 Paroxysmal atrial fibrillation; J43.9 Emphysema, unspecified; D72.829 Elevated white blood cell count, unspecified; I45.10 Unspecified right bundle-branch block; R00.0 Tachycardia, unspecified; K80.20 Calculus of gallbladder without cholecystitis without obstruction; K64.8 Other hemorrhoids; E78.5 Hyperlipidemia, unspecified; K40.20 Bilateral inguinal hernia, without obstruction or gangrene, not specified as recurrent; Z79.01 Long term (current) use of anticoagulants; Z79.51 Long term (current) use of inhaled steroids; Z79.899 Other long term (current) drug therapy; Z82.49 Family history of ischemic heart disease and other diseases of the circulatory system; Z87.891 Personal history of nicotine dependence; Z88.0 Allergy status to penicillin
CPT/HCPCS: 36415; 45381; 45385; 71045; 74177; 80048; 80053; 80061; 82272; 83036; 83690; 83735; 83880; 84145; 84443; 85025; 85027; 85610; 85730; 88305; 88341; 88342; 93005; 93306; 94640; 94760; 96361; 96374; 96375; 96376; 99285

== ENCOUNTER → 2025-03-01 | Outpatient (CLI) | payer MEDICARE, OTHER ==
[2025-03-01 13:12] LABS: Basophils # (A) 0.01 X 10*3/uL (0.00-0.10); Basophils % (A) 0.1 %; Eosinophils # (A) 0 X 10*3/uL (0.04-0.35); Eosinophils % (A) 0 %; HCT 28.9 % (39.6-50.0); HGB 8.9 g/dL (13.0-17.0); Lymphocytes % (A) 9.9 %; MCH 24.6 pg (27.0-32.0); MCHC 30.8 g/dL (32.0-37.0); MCV 79.8 FL (80.0-97.0); Mean Platelet Volume 9.8 FL (9.5-12.2); Monocytes # (A) 0.89 X 10*3/uL (0.20-1.00); Monocytes % (A) 5.5 %; NRBC Per 100 WBC 0.03 X 10*3/uL (0.00-0.01); Neutrophils # (A) 13.51 X 10*3/uL (1.80-7.70); Neutrophils % (A) 83.3 %; Platelet Count 373 X 10*3/uL (140-440); RBC 3.62 X 10*6/uL (4.40-5.60); RDW 17.2 % (11.5-14.5); WBC 16.21 X 10*3/uL (4.50-10.00)
[2025-03-01 13:47] LABS: % Iron Saturation 4.49 (15.00-50.00); BUN/Creat Ratio 17.27 Ratio (12.00-20.00); Calcium 9.2 mg/dL (8.7-10.3); Carbon Dioxide 25.1 mmol/L (21.6-31.8); Chloride 106 mmol/L (96-109); Ferritin 36.3 ng/mL (22.0-322.0); Glucose 167 mg/dL (70-110); Iron 17 UG/DL (65-175); Sodium 144 mmol/L (135-145); Total Iron Binding Capacity 379 UG/DL (228-460)
== END | disposition home or self-care (01) ==
LOC: RADXRMAIN 09:28
PROVIDERS: ATTEND Hospitalist
DX: D50.9 Iron deficiency anemia, unspecified (principal)
CPT/HCPCS: 80048; 82728; 83540; 83550; 85025

== ENCOUNTER → 2025-03-15 | Outpatient (CLI) | payer MEDICARE, OTHER ==
[2025-03-15 11:09] LABS: INR 0.9 (<1.2); Partial Thromboplastin Time 22.3 sec (22.0-30.0); Prothrombin Time 10.2 sec (10.0-12.5)
[2025-03-15 14:31] LABS: Anion Gap 12.1 mmol/L (4.00-12.00); Blood Urea Nitrogen 12.5 mg/dL (9.0-27.0); Carbon Dioxide 22.9 mmol/L (21.6-31.8); Potassium 4.3 mmol/L (3.5-5.5)
[2025-03-15 15:06] LABS: Appearance,Urine Turbid (Clear); Bilirubin,Urine Negative (Negative); Blood,Urine Negative (Negative); Color,Urine Yellow (Yellow); Ketones,Urine Trace (Negative); Nitrite,Urine Negative (Negative); Specific Gravity,Urine 1.022 (1.001-1.030); Urobilinogen,Urine 0.2 E.U./DL
[2025-03-15 15:14] LABS: Bacteria,Urine None Seen (None Seen); HCT 32.4 % (39.6-50.0); HGB 9.8 g/dL (13.0-17.0); MCH 23.4 pg (27.0-32.0); MCHC 30.2 g/dL (32.0-37.0); MCV 77.3 FL (80.0-97.0); Mean Platelet Volume 10.2 FL (9.5-12.2); NRBC Per 100 WBC 0 X 10*3/uL (0.00-0.01); Platelet Count 266 X 10*3/uL (140-440); RBC 4.19 X 10*6/uL (4.40-5.60); RDW 16.4 % (11.5-14.5); WBC 6.02 X 10*3/uL (4.50-10.00)
== END | disposition home or self-care (01) ==
LOC: LABPAT 10:35
PROVIDERS: ATTEND Surgery
DX: Z01.818 Encounter for other preprocedural examination
CPT/HCPCS: 80051; 81001; 82947; 84520; 85027; 85610; 85730; 86850; 86900; 86901

== ENCOUNTER 2025-03-19 09:23 | Inpatient (IN) | payer MEDICARE, OTHER ==
[~2025-03-19 09:23] MED LIST: HEPARIN SODIUM,PORCINE 5,000 UNIT/ML 1 ML VIAL SQ PRN; HYDROmorphone 0.5 MG/0.5 ML SYRINGE IVP PRN; fentaNYL (PF) 50 MCG/ML 2 ML AMP IV PRN
[2025-03-19] MEDS ORDERED: HEPARIN SODIUM,PORCINE 5,000 UNIT/ML 1 ML VIAL ONE (10:10)
[2025-03-19] MEDS ORDERED: fentaNYL (PF) 50 MCG/ML 2 ML AMP ONE (10:10)
[2025-03-19] MEDS ORDERED: ROCURONIUM 10 MG/ML (5 ML VIAL) IV ONE (10:10)
[2025-03-19] MEDS ORDERED: NEOSTIGMINE 1 MG/ML 10 ML VIAL ONE (10:10)
[2025-03-19] MEDS ORDERED: PROPOFOL 10 MG/ML 20 ML VIAL IV ONE (10:10)
[2025-03-19] MEDS ORDERED: LIDOCAINE 1% INJ 10MG/ML (20 ML MDV) ONE (10:10)
[2025-03-19] MEDS ORDERED: PHENYLEPHRINE-0.9% NACL SYG 1,000 MCG/10 ML SYRINGE ONE (10:10)
[2025-03-19] MEDS ORDERED: GLYCOPYRROLATE 0.2 MG/ML 2 ML VIAL ONE (10:10)
[2025-03-19] MEDS ORDERED: MIDAZOLAM 2 MG/2 ML VIAL ONE (10:10)
[2025-03-19] MEDS: IV FLUID CONTINUATION 1,000 ML IV ONE (10:25)
[2025-03-19] MEDS: LACTATED RINGERS 1,000 ML IV SCH ×2 (10:30→15:02)
[2025-03-19] MEDS: ONDANSETRON 4 MG/2 ML VIAL IVP ONE (10:30)
[2025-03-19] MEDS: DEXAMETHASONE SOD PHOSPHATE 4 MG/ML 1 ML VIAL IV ONE (10:31)
--- NOTE | 2025-03-19 10:38 | P.HPIHPCON ---
History of Present Illness H&P Date: 03/19/25 64-year-old male with recent finding of GI bleed underwent workup with colonoscopy and finding of colon cancer. He has had preoperative clearance from cardiology and pulmonology. Plan is for colectomy. Consent for Procedure: I have explained the operation/procedure to the patient, including the risks, benefits, side effects, alternative therapies (including not receiving the proposed treatment or service), the likelihood of the patient achieving his/her goals, and potential recuperation problems for the procedure/sedation/analgesia, as well as any blood products, if indicated. I also explained to the patient the risks, benefits and side effects of the alternatives, as well as the risks related to not receiving the proposed procedure, care, treatment, or services. - Review of Systems All systems: negative Past Medical History Past Medical History: Atrial Flutter, COPD Additional Past Medical History / Comment(s): iireg heart rythym. Pt sees Dr Emery for his heart. COPD, Ex smoker. History of Any Multi-Drug Resistant Organisms: None Reported Past Surgical History: Tonsillectomy Additional Past Surgical History / Comment(s): colonoscopy Past Anesthesia/Blood Transfusion Reactions: No Reported Reaction Additional Past Anesthesia/Blood Transfusion Reaction / Comment(s): no blood transfusions. Smoking Status: Former smoker Past Alcohol Use History: None Reported Additional Drug Use History / Comment(s): Current daily marajuana smoker. - Past Family History Father Family Medical History: Myocardial Infarction ([place]) Additional Family Medical History / Comment(s): Father from heart attack at 65 years old. Mother Family Medical History: Cancer Additional Family Medical History / Comment(s): Ovarian cancer Medications and Allergies Home Medications Medication Instructions Recorded Confirmed Type Atorvastatin Calcium [Lipitor] 40 mg PO HS 06/04/23 03/19/25 History Albuterol Inhaler [Ventolin Hfa 2 puff INHALATION Q6H PRN 30 Days 06/16/23 03/14/25 Rx Inhaler] #1 each Fluticasone/Vilanterol [Breo 1 puff INHALATION RT-DAILY 02/20/25 03/19/25 History Ellipta 200-25 Mcg Inhaler] Apixaban [Eliquis] 5 mg PO BID 03/14/25 03/14/25 History Diltiazem Cd [Cardizem CD] 180 mg PO HS 03/14/25 03/19/25 History Magnesium 250 mg PO DAILY 03/14/25 03/14/25 History Metoprolol Tartrate [Lopressor] 50 mg PO DAILY 03/14/25 03/19/25 History Multi Vitamin Gummie 1 tab PO DAILY 03/14/25 03/14/25 History Potassium Chloride ER [K-Dur 10] 10 meq PO DAILY 03/14/25 03/19/25 History Albuterol Inhaler [Ventolin Hfa 2 puff INHALATION Q6HR PRN 03/19/25 03/19/25 History Inhaler] Allergies Allergy/AdvReac Type Severity Reaction Status Date / Time Penicillins Allergy hallucinations Verified 03/19/25 10:03 @ 6-7yrs Surgical - Exam Osteopathic Statement: *. No significant issues noted on an osteopathic structural exam other than those noted in the History and Physical/Consult. Vital Signs Temp Pulse Resp BP Pulse Ox 97.6 F 76 14 134/86 100 03/19/25 10:15 03/19/25 10:15 03/19/25 10:15 03/19/25 10:15 03/19/25 10:15 - General well developed, well nourished - Eyes normal ocular movement - ENT poor senior living - Neck trachea midline - Respiratory normal respiratory effort - Abdomen Abdomen: soft, non tender - Psychiatric oriented to time, oriented to person, oriented to place Assessment and Plan Plan: 64-year-old male with colon adenocarcinoma. Plan is for segmental colectomy. Risks, benefits and alternatives were provided to the patient. He has held anticoagulation. He has cardiac and pulmonology risk stratification.
[2025-03-19] MEDS: MIDAZOLAM 2 MG/2 ML VIAL IV ONE (10:50)
[2025-03-19] MEDS: ceFAZolin 2 GM in DEXTROSE 5% IN WATER 50 ML IVPB PRN (11:13)
[2025-03-19] MEDS ORDERED: diphenhydrAMINE 50 MG/ML 1 ML VIAL IVP PRN (11:18)
[2025-03-19] MEDS ORDERED: NALOXONE 0.4 MG/ML 1 ML VIAL IV PRN (11:18)
[2025-03-19] MEDS ORDERED: MORPHINE SULFATE 2 MG/ML SYRINGE IVP PRN (11:18)
[2025-03-19] MEDS: metroNIDAZOLE-NS PMX 500 MG in SALINE 1 100ML.BAG IVPB PRN (11:20)
[2025-03-19] MEDS: LACTATED RINGERS 1,000 ML IV ONE ×2 (11:55→12:57)
[2025-03-19] MEDS: fentaNYL (PF) 50 MCG/ML 2 ML AMP IVP STA ×2 (12:40)
--- NOTE | 2025-03-19 13:59 | P.ANPRN ---
Procedure Note - Anesthesia - Epidural/Spinal Epidural Continuous Time Out Performed: Yes Date of Procedure: 03/19/25 Procedure Start Time: 10:50 Procedure Stop Time: 10:59 Location of Patient: PreOp Indication: Acute Post-Operative Pain, Requested by Surgeon (delmy) Sedation Type: Sedate with meaningful contact maintained Preparation: Sterile Prep Number of Attempts: 1 Position: Sitting Catheter Depth at Skin (cm): 11 Catheter: Indwelling Needle Guage: 18 Injectate: test dose negative Narrative: t10-11 level. sterle protocol Blood Aspirated: No Pain Paresthesia on Injection Noted: No Events: Uneventful and Well Tolerated
--- NOTE | 2025-03-19 17:12 | P.OP ---
Date of Procedure: 03/19/25 Preoperative Diagnosis: Colon adenocarcinoma Postoperative Diagnosis: Colon adenocarcinoma Procedure(s) Performed: Open extended right hemicolectomy Anesthesia: KAMI Surgeon: Bryan Kwan Pathology: other (Right colon, transverse colon) Condition: stable Disposition: floor Indications for Procedure: 64-year-old male with recent diagnosis of colon adenocarcinoma and colonoscopy performed few weeks ago. Plan is for extended right hemicolectomy. Tattoo was placed at site of concern. Discussion was had to include the known polyp at the hepatic flexure and the specimen. Risks, benefits and alternatives were provided to the patient. Risk of anastomotic leak, bleeding and infection were discussed in depth. All questions answered prior to attending operating suite. Operative Findings: Tattoo in mid transverse colon Thickened omentum Description of Procedure: Patient was brought to the operating suite and placed in supine position on the operating table. Sedation was provided by anesthesia and the patient underwent endotracheal intubation. Preoperatively he did have epidural placed. Once under anesthesia, Moses catheter was placed. The patient was prepped and draped in regular sterile fashion. Midline incision was made and dissection was carried to the fascia. The fascia was then incised along the length of the incision. Abdomen was entered and was explored for metastatic disease. Liver and peritoneum appeared without any disease. The omentum was noted to be thickened. Small sample was sent for frozen section. Frozen section was negative for any malignancy. Due to the thickening, dissection was carried and omentectomy was performed. The patient was then placed in appropriate position and the white line of Toldt was incised and the colon was mobilized towards the midline. The tattoo was noted in the mid transverse colon. Ureter and duodenum were noted to be protected during the mobilization. The colon was divided distally at a appropriate location greater than 5 cm from the tattoo. This was performed with surgical stapler device. Similarly, the terminal ileum was transected using stapler device. The mesentery was ligated using LigaSure device and the specimen was removed in its entirety. Hemostasis was noted to be maintained with examination. The anastomosis was then performed by creating an enterotomy in the distal ileum and a colotomy in the remaining colon. Stapler device was fired and anastomosis was created. A TA stapler was fired on the resulting enterotomy and was noted to be closed. The TA staple line was imbricated using multiple interrupted 3 oh Lembert sutures. Anastomosis appeared patent. Copious months irrigation was placed in the abdomen and suctioned. No evidence of bleeding was noted. The fascia was then closed with a running looped PDS suture. Skin melissa were placed. Sterile dressing was applied. The patient was awakened in the operating suite and taken to postanesthesia care in stable condition.
[2025-03-19] MEDS: METOCLOPRAMIDE 5 MG/ML 2 ML VIAL IVP SCH (18:10)
[2025-03-19] MEDS: ATORVASTATIN 40 MG TAB PO SCH (20:15)
[2025-03-19] MEDS ORDERED: ACETAMINOPHEN TAB 325 MG TAB PO PRN (21:03)
[2025-03-19] MEDS: DILTIAZEM CD 180 MG CAP.ER.24H PO SCH (21:29)
[2025-03-20] MEDS: ROPIVACAINE 250 MG, fentaNYL (PF) 1,250 MCG in SODIUM CHLORIDE 0.9% 175 ML EPIDURAL PRN (07:25)
--- NOTE | 2025-03-20 08:28 | P.PN ---
Progress Note - Text Progress Note Date: 03/20/25 (647) Anesthesia Postop day 1 Status post hemicolectomy with epidural day 2 Patient seen and examined. Doing well with some discomfort. VAS 7 out of 10dull ache. No nausea vomiting or pruritus. Ropivacaine0.1% with fentanyl 5 mcg/cc at 7 cc an hour. Objective: Vital signs reviewed Lungs: Good chest excursion Abdomen: Appears nondistended Other: Epidural Site Intact without induration. Dressing intact Neuro: No apparent motor block. Sensory within normal limits. Assessment: Status post hemicolectomy postop day 1 Plan: Continue current care with your medical management. Anticipate reevaluation tomorrow. Discussed with nurse. Told nurse to increase rate to 90 cc an hour and informed patient that he does have breakthrough meds available.
[2025-03-20] MEDS: METOPROLOL TARTRATE 50 MG TAB PO SCH (08:40)
[2025-03-20] MEDS: ALBUTEROL NEBULIZED 2.5 MG/3 ML INHALATION PRN (08:49)
[2025-03-20] MEDS: SYMBICORT 160-4.5 MCG INHALER INHALATION SCH (08:49)
[2025-03-20 08:55] LABS: HCT 27.8 % (39.6-50.0); HGB 8.3 g/dL (13.0-17.0); MCH 22.1 pg (27.0-32.0); MCHC 29.9 g/dL (32.0-37.0); MCV 74.1 FL (80.0-97.0); Mean Platelet Volume 10.2 FL (9.5-12.2); NRBC Per 100 WBC 0 X 10*3/uL (0.00-0.01); Platelet Count 202 X 10*3/uL (140-440); RBC 3.75 X 10*6/uL (4.40-5.60); RDW 16.2 % (11.5-14.5); WBC 11.05 X 10*3/uL (4.50-10.00)
[2025-03-20 09:16] LABS: Blood Urea Nitrogen 11.6 mg/dL (9.0-27.0); Calcium 9.1 mg/dL (8.7-10.3); Carbon Dioxide 23.9 mmol/L (21.6-31.8); Chloride 102 mmol/L (96-109); Glucose 120 mg/dL (70-110); Magnesium 1.8 mg/dL (1.5-2.4); Potassium 4.5 mmol/L (3.5-5.5); Sodium 137 mmol/L (135-145)
[2025-03-20] MEDS: ONDANSETRON 4 MG/2 ML VIAL IVP PRN (10:07)
[2025-03-20] MEDS: CALCIUM CARBONATE 500 MG CHEWABLE PO PRN (10:29)
[2025-03-20 10:48] LABS: Basophils # (A) 0.01 X 10*3/uL (0.00-0.10); Basophils % (A) 0.1 %; Eosinophils # (A) 0 X 10*3/uL (0.04-0.35); Eosinophils % (A) 0 %; Lymphocytes # (A) 0.73 X 10*3/uL (0.90-5.00); Lymphocytes % (A) 6.6 %; Microcytosis (M) 2+ (None Seen); Monocytes # (A) 0.82 X 10*3/uL (0.20-1.00); Monocytes % (A) 7.4 %; Neutrophils # (A) 9.44 X 10*3/uL (1.80-7.70); Neutrophils % (A) 85.4 %
[2025-03-20] MEDS: LACTATED RINGERS 1,000 ML IV SCH (12:02)
[2025-03-20] MEDS: ACETAMINOPHEN IV (For NPO) 1,000 MG in EMPTY BAG 1 BAG IVPB SCH (12:02)
--- NOTE | 2025-03-20 12:44 | XR ---
EXAMINATION TYPE: XR chest 2V DATE OF EXAM: 03/20/2025 CLINICAL INDICATION: Male, 64 years old with history of shortness of breath, TECHNIQUE: Frontal and lateral views of the chest are obtained. COMPARISON: Chest x-ray February 21, 2025 FINDINGS: There is no suspicious focal air space opacity or pneumothorax seen. Tiny bilateral pleura l effusions or pleural thickening is seen. The cardiac silhouette size remains within normal limits. The osseous structures are intact. IMPRESSION: Tiny bilateral pleural effusions. No acute pulmonary infiltrate. [facility], , 03/20/2025 12:42 PM
--- NOTE | 2025-03-20 13:40 | P.PN ---
Subjective Progress Note Date: 03/20/25 SURGICAL PROGRESS NOTE CHIEF COMPLAINT: Colon adenocarcinoma HISTORY OF PRESENT ILLNESS: Patient is postop day #1 status post open extended right hemicolectomy. Patient has epidural for pain. Anesthesiologist did increase epidural from 7-9 this morning. Patient still seemed uncomfortable upon my evaluation this a.m. IV Tylenol added as well as ice packs. Patient complaining of heartburn. He denies any bowel activity. Urine output adequate. Patient does appear wheezy and slightly short of breath. Afebrile. On 2 L of oxygen satting at 95%. Elevated blood pressure this morning 187/80. WBC 11.05 Hgb 8.3 platelets 202 PHYSICAL EXAM: VITAL SIGNS: Reviewed. GENERAL: Well-developed in no acute distress. HEENT: No sclera icterus. Extraocular movements grossly intact. Moist buccal mucosa. Head is atraumatic, normocephalic. ABDOMEN: Soft. Distended. Mild tenderness at incision site. Incisional dressing with small areas of blood saturation. NEUROLOGIC: Alert and oriented. Cranial nerves II through XII grossly intact. ASSESSMENT: 1. Colon adenocarcinoma PLAN: - Add IV Tylenol scheduled and ice packs to help with pain management. Continue epidural - Continue Moses catheter - Place IV fluids back to lactate ringer 100 mL/h - Agree with Toma smith treatments - Educated patient to go slowly with the liquid diet. And to only use it to really wet the mouth at this time - Check chest x-ray for shortness of breath and wheezing - Agree with adding IV Protonix - Encourage patient to sit at bedside chair - Encourage patient to use incentive spirometer - Repeat CBC and BMP in a.m. - DVT prophylaxis subcu heparin [employer] note has been reviewed by physician. Signing provider agrees with the documented findings, assessment, and plan of care. Objective - Vital Signs Vital signs: Vital Signs Temp 97.6 F 03/20/25 07:45 Pulse 80 03/20/25 09:01 Resp 19 03/20/25 07:45 BP 187/80 03/20/25 07:45 Pulse Ox 95 03/20/25 08:53 FiO2 Intake & Output 03/19/25 03/20/25 03/20/25 18:59 06:59 18:59 Intake Total 2450 184.3 Output Total 290 750 Balance 2160 -750 184.3 Weight 79.6 kg Intake: IV 2450 Intake, IV Titration 184.3 Amount Ropivacaine 250 mg 184.3 fentaNYL (PF) 1,250 mcg In Sodium Chloride 0.9% 175 ml @ Per Protocol EPIDURAL .Q0M PRN Rx#: [id number] Output: Urine 250 750 Estimated Blood Loss 40 Other: Voiding Method Indwelling Catheter Indwelling Catheter Indwelling Catheter # Voids 1 - Labs CBC & Chem 7: 03/20/25 03:24 03/20/25 03:24 Labs: Abnormal Lab Results - Last 24 Hours (Table) 03/20/25 03/20/25 Range/Units 03:24 03:24 WBC 11.05 H (4.50-10.00) X 10*3/uL RBC 3.75 L (4.40-5.60) X 10*6/uL Hgb 8.3 L (13.0-17.0) g/dL Hct 27.8 L (39.6-50.0) % MCV 74.1 L (80.0-97.0) FL MCH 22.1 L (27.0-32.0) pg MCHC 29.9 L (32.0-37.0) g/dL RDW 16.2 H (11.5-14.5) % Immature Gran # 0.05 H (0.00-0.04) X 10*3/uL Neutrophils # 9.44 H (1.80-7.70) X 10*3/uL Lymphocytes # 0.73 L (0.90-5.00) X 10*3/uL Eosinophils # 0 L (0.04-0.35) X 10*3/uL Microcytosis (manual) 2+ A (None Seen) BUN/Creatinine Ratio 11.60 L (12.00-20.00) Ratio Glucose 120 H (70-110) mg/dL
[2025-03-20] MEDS: PANTOPRAZOLE 40 MG/10 ML VIAL IVP SCH (20:13)
[2025-03-20] MEDS: HEPARIN SODIUM,PORCINE 5,000 UNIT/ML 1 ML VIAL SQ SCH (20:13)
[2025-03-21 06:42] LABS: Basophils # (A) 0.02 10*3/uL (0.00-0.10); Basophils % (A) 0.2 %; HCT 31.8 % (39.6-50.0); HGB 9.6 g/dL (13.0-17.0); Lymphocytes # (A) 0.78 10*3/uL (0.90-5.00); Lymphocytes % (A) 6.1 %; MCH 22.3 pg (27.0-32.0); MCHC 30.2 g/dL (32.0-37.0); Mean Platelet Volume 10.1 fL (9.5-12.2); Monocytes # (A) 1.16 10*3/uL (0.20-1.00); Neutrophils % (A) 84.5 %; Platelet Count 361 10*3/uL (140-440); RDW 16.6 % (11.5-14.5); WBC 12.89 10*3/uL (4.50-10.00)
[2025-03-21 06:56] LABS: African American GFR (CKD) 85 (>60 ml/min/1.73 sqM); Anion Gap 6 mmol/L; Blood Urea Nitrogen 15 mg/dL (9-20); Calcium 9.3 mg/dL (8.4-10.2); Carbon Dioxide 31 mmol/L (22-30); Chloride 98 mmol/L (98-107); Glucose 136 mg/dL (74-99); Non-African American GFR(CKD) 73 (>60 ml/min/1.73 sqM); Potassium 4.3 mmol/L (3.5-5.1); Sodium 135 mmol/L (137-145)
--- NOTE | 2025-03-21 07:07 | P.PN ---
Progress Note - Text 03/21/25 644am 64-year-old male with exploratory lap. Patient had epidural catheter for postop pain control with a solution running at 9 cc an hour with a VAS of 4. No motor or sensory deficit noted. Plan to continue epidural infusion for another day
--- NOTE | 2025-03-21 09:57 | P.CONS ---
History of Present Illness - Reason for Consult Consult date: 03/20/25 Medical management, status post open extended right hemicolectomy - History of Present Illness This is a 64-year-old male who was admitted under surgical services for: Adenocarcinoma and is postop open extended right hemicolectomy. Patient reports he follows with Dr. Randal Castro in the outpatient setting with a past medical history of atrial flutter, COPD, ex smoker, current marijuana use. Patient is postop and maintained on epidural pain pump continues to report significant pain and is complaining of some heartburn with Tums being added and will continue with Protonix IV twice daily. Patient reports is passing gas but has not had a bowel movement pulm occasions will be reviewed and resumed as appropriate and recommend breathing treatments and continued incentive spirometer use. Patient needs tighter blood pressure control as well. Labs reviewed with a white count of 11.05, hemoglobin 8.3, sodium 137, potassium 4.5, BUN 11.6, creatinine 1.06, magnesium is 1.8. Chest x-ray reports tiny bilateral pleural effusions with no acute pulmonary infiltrate. Again strongly stressed the importance of continued incentive spirometer use and increase activity as tolerated. Patient has been started on clear liquid diet per surgery and to be adjusted once small bowel function is noted. REVIEW OF SYSTEMS: CONSTITUTIONAL: No fever, no malaise, no fatigue. HEENT: No recent visual problems or hearing problems. Denied any sore throat. CARDIOVASCULAR: No chest pain, orthopnea, PND, no palpitations, no syncope. PULMONARY: No shortness of breath, no cough, no hemoptysis. GASTROINTESTINAL: No diarrhea, no nausea, no vomiting, reports continued abdominal pain. Reports passing minimal gas, no bowel movement as of yet NEUROLOGICAL: No headaches, no weakness, no numbness. HEMATOLOGICAL: Denies any bleeding or petechiae. GENITOURINARY: Denies any burning micturition, frequency, or urgency. MUSCULOSKELETAL/RHEUMATOLOGICAL: Denies any joint pain, swelling, or any muscle pain. ENDOCRINE: Denies any polyuria or polydipsia. The rest of the 14-point review of systems is negative. PHYSICAL EXAMINATION: GENERAL: The patient is alert and oriented x3, appears in pain on exam, very flat affect. Well developed, thin built, elderly appearing HEENT: Pupils are round and equally reacting to light. EOMI. No scleral icterus. No conjunctival pallor. Normocephalic, atraumatic. No pharyngeal erythema. No thyromegaly. CARDIOVASCULAR: S1 and S2 muffled PULMONARY: Diminished breath sounds bilaterally with some faint expiratory wheezing and coarse rhonchi noted. No accessory muscle use noted ABDOMEN: Soft, thin, tender, nondistended, hypoactive bowel sounds. No palpable organomegaly. MUSCULOSKELETAL: No joint swelling or deformity. EXTREMITIES: No cyanosis, clubbing, or pedal edema. NEUROLOGICAL: Gross neurological examination did not reveal any focal deficits. SKIN: No rashes. Assessment: Status post open extensive right hemicolectomy secondary to adenocarcinoma Former smoker with history of COPD COPD history, not in exacerbation Leukocytosis, possibly reactive GERD History of atrial flutter THC use GI prophylaxis DVT prophylaxis Full code Plan: Patient admitted under surgery status post open extended right hemicolectomy secondary to adenocarcinoma Patient is maintained on clear liquids for general surgery and will be advanced per surgery once more bowel function is noted Patient continues on epidural pump and will continue to control pain per general surgery Possible PT/OT therapy if patient is weak once epidural pump has been removed Follow-up on repeat labs and replace electrolytes per protocol Monitor white count closely and monitor for any fevers Chest x-ray showing some tiny pleural effusions and recommend decreasing IV hydration and encouraging incentive spirometer use at least 10 times every hour while awake We will continue to follow with general surgery during hospitalization. Thank you kindly for this consultation. The impression and plan of care has been dictated by Heydi Munoz, Nurse Practitioner as directed. Dr. Rivera MD I have performed a history and examination and MDM of this patient, discussed the same with the dictator, and agree with the dictator's assessment and plan as written ,documented as a scribe. Based on total visit time, I have performed more than 50% of the visit. Past Medical History Past Medical History: Atrial Flutter, COPD Additional Past Medical History / Comment(s): iireg heart rythym. Pt sees Dr Emery for his heart. COPD, Ex smoker. History of Any Multi-Drug Resistant Organisms: None Reported Past Surgical History: Tonsillectomy Additional Past Surgical History / Comment(s): colonoscopy Past Anesthesia/Blood Transfusion Reactions: No Reported Reaction Additional Past Anesthesia/Blood Transfusion Reaction / Comm: no blood transfusions. Past Psychological History: No Psychological Hx Reported Smoking Status: Former smoker Past Alcohol Use History: None Reported Additional Past Alcohol Use History / Comment(s): quit smoking 6yrs ago 1 1/2 ppd Past Drug Use History: Marijuana Additional Drug Use History / Comment(s): Current daily marajuana smoker. - Past Family History Father Family Medical History: Myocardial Infarction ([place]) Additional Family Medical History / Comment(s): Father from heart attack at 65 years old. Mother Family Medical History: Cancer Additional Family Medical History / Comment(s): Ovarian cancer Medications and Allergies Home Medications Medication Instructions Recorded Confirmed Type Atorvastatin Calcium [Lipitor] 40 mg PO HS 06/04/23 03/19/25 History Albuterol Inhaler [Ventolin Hfa 2 puff INHALATION Q6H PRN 30 Days 06/16/23 03/14/25 Rx Inhaler] #1 each Fluticasone/Vilanterol [Breo 1 puff INHALATION RT-DAILY 02/20/25 03/19/25 History Ellipta 200-25 Mcg Inhaler] Apixaban [Eliquis] 5 mg PO BID 03/14/25 03/14/25 History Diltiazem Cd [Cardizem CD] 180 mg PO HS 03/14/25 03/19/25 History Magnesium 250 mg PO DAILY 03/14/25 03/14/25 History Metoprolol Tartrate [Lopressor] 50 mg PO DAILY 03/14/25 03/19/25 History Multi Vitamin Gummie 1 tab PO DAILY 03/14/25 03/14/25 History Potassium Chloride ER [K-Dur 10] 10 meq PO DAILY 03/14/25 03/19/25 History Albuterol Inhaler [Ventolin Hfa 2 puff INHALATION Q6HR PRN 03/19/25 03/19/25 History Inhaler] Allergies Allergy/AdvReac Type Severity Reaction Status Date / Time Penicillins Allergy hallucinations Verified 03/19/25 10:03 @ 6-7yrs Physical Exam Vitals: Vital Signs Temp Pulse Pulse Pulse Pulse Resp BP 03/20/25 09:01 80 03/20/25 08:53 03/20/25 08:49 88 03/20/25 07:45 97.6 F 92 19 03/20/25 01:59 98.6 F 77 17 03/19/25 20:35 99.4 F 81 16 03/19/25 16:35 71 03/19/25 16:20 66 03/19/25 16:05 65 03/19/25 15:45 68 03/19/25 15:35 65 03/19/25 15:20 65 03/19/25 15:05 70 03/19/25 14:45 97.9 F 66 03/19/25 14:15 68 15 03/19/25 14:00 66 17 03/19/25 13:45 67 18 03/19/25 13:30 73 12 03/19/25 13:15 97.7 F 78 18 03/19/25 10:55 78 16 136/71 03/19/25 10:15 97.6 F 76 14 134/86 BP Pulse Ox 03/20/25 09:01 03/20/25 08:53 95 03/20/25 08:49 03/20/25 07:45 187/80 92 L 03/20/25 01:59 127/66 98 03/19/25 20:35 142/71 98 03/19/25 16:35 136/75 97 03/19/25 16:20 133/72 97 03/19/25 16:05 120/65 95 03/19/25 15:45 113/67 95 03/19/25 15:35 112/65 93 L 03/19/25 15:20 117/65 03/19/25 15:05 114/67 94 L 03/19/25 14:45 115/70 94 L 03/19/25 14:15 117/70 100 03/19/25 14:00 129/73 100 03/19/25 13:45 141/74 100 03/19/25 13:30 120/57 100 03/19/25 13:15 142/88 100 03/19/25 10:55 100 03/19/25 10:15 100 Intake and Output 03/19/25 03/20/25 03/20/25 22:59 06:59 14:59 Intake Total 184.3 Output Total 750 Balance -750 184.3 Intake: Intake, IV Titration 184.3 Amount Ropivacaine 250 mg 184.3 fentaNYL (PF) 1,250 mcg In Sodium Chloride 0.9% 175 ml @ Per Protocol EPIDURAL .Q0M PRN Rx#: [id number] Output: Urine 750 Other: Voiding Method Indwelling Catheter # Voids 1 Weight 79.6 kg Results CBC & Chem 7: 03/21/25 06:01 03/21/25 06:01 Labs: Abnormal Lab Results - Last 24 Hours (Table) 03/20/25 03/20/25 Range/Units 03:24 03:24 WBC 11.05 H (4.50-10.00) X 10*3/uL RBC 3.75 L (4.40-5.60) X 10*6/uL Hgb 8.3 L (13.0-17.0) g/dL Hct 27.8 L (39.6-50.0) % MCV 74.1 L (80.0-97.0) FL MCH 22.1 L (27.0-32.0) pg MCHC 29.9 L (32.0-37.0) g/dL RDW 16.2 H (11.5-14.5) % BUN/Creatinine Ratio 11.60 L (12.00-20.00) Ratio Glucose 120 H (70-110) mg/dL
[2025-03-21] MEDS: ACETAMINOPHEN IV (For NPO) 1,000 MG in EMPTY BAG 1 BAG IVPB SCH (11:52)
[2025-03-21] MEDS: methylPREDNISolone SOD SUCCI 40 MG/ML 1 ML VIAL IV SCH (12:04)
--- NOTE | 2025-03-21 14:01 | P.PN ---
Subjective Progress Note Date: 03/21/25 SURGICAL PROGRESS NOTE CHIEF COMPLAINT: Colon adenocarcinoma HISTORY OF PRESENT ILLNESS: Patient is postop day #2 status post open extended right hemicolectomy. Patient has epidural for pain. Patient reports his pain is controlled. He reports the IV Tylenol did help with pain. No bowel activity. Denies any nausea or vomiting. Does report that his abdomen is distended. And he has been burping. Afebrile. WBC did go up from 11-12 hemoglobin 9.6. Patient is still wheezy. He is scheduled for breathing treatment this morning. PHYSICAL EXAM: VITAL SIGNS: Reviewed. GENERAL: Well-developed in no acute distress. HEENT: No sclera icterus. Extraocular movements grossly intact. Moist buccal mucosa. Head is atraumatic, normocephalic. ABDOMEN: Soft. Distended. Mild tenderness at incision site. Incisional dressing with small areas of blood saturation. NEUROLOGIC: Alert and oriented. Cranial nerves II through XII grossly intact. ASSESSMENT: 1. Colon adenocarcinoma status post open extended right hemicolectomy PLAN: -Resume IV Tylenol -Anticipate epidural and Moses catheter removed tomorrow -Continue IV fluids -Change Optifoam silver dressing -Consult pulmonary service for COPD -Go slow with the liquid diet -Encourage patient to ambulate -Encouraged patient to use incentive spirometer -Repeat CBC in a.m. - DVT prophylaxis subcu heparin and GI prophylaxis Protonix Physician Manufacturing Recruiter note has been reviewed by physician. Signing provider agrees with the documented findings, assessment, and plan of care. Attestation Patient seen and examined at bedside. Sitting at bedside. States he is more comfortable with pain control. IV Tylenol has helped. Patient denies any bowel activity at this time. Plan for pulmonology evaluation due to patient's history of COPD. Epidural and Moses catheter removal per anesthesia. Continue clear liquid diet at this time and await further bowel function. Will continue to follow CBC and white blood cell count. Bryan Kwan DO Objective - Vital Signs Vital signs: Vital Signs Temp 98.2 F 03/21/25 07:15 Pulse 88 03/21/25 10:06 Resp 19 03/21/25 12:31 BP 146/79 03/21/25 07:15 Pulse Ox 96 03/21/25 12:31 FiO2 Intake & Output 03/20/25 03/21/25 03/21/25 18:59 06:59 18:59 Intake Total 1650.0 Output Total 1000 650 Balance 650.0 -650 Intake: Intake, IV Titration 1650.0 Amount ACETAMINOPHEN IV (For NPO 200 ) 1,000 mg In Empty Bag 1 bag @ 400 mls/hr IVPB Q6HR REPLACED BY [facility] Rx#:[id number] Lactated Ringers 1,000 ml 1200 @ 100 mls/hr IV .Q10H REPLACED BY [facility] Rx#:[id number] Ropivacaine 250 mg 250.0 fentaNYL (PF) 1,250 mcg In Sodium Chloride 0.9% 175 ml @ Per Protocol EPIDURAL .Q0M PRN Rx#: [id number] Output: Urine 1000 650 Other: Voiding Method Indwelling Catheter Indwelling Catheter Indwelling Catheter # Voids 1 # Bowel Movements 1 - Labs CBC & Chem 7: 03/21/25 14:33 03/21/25 06:01 Labs: Abnormal Lab Results - Last 24 Hours (Table) 03/21/25 03/21/25 Range/Units 06:01 06:01 WBC 12.89 H (4.50-10.00) 10*3/uL RBC 4.30 L (4.40-5.60) 10*6/uL Hgb 9.6 L (13.0-17.0) g/dL Hct 31.8 L (39.6-50.0) % MCV 74.0 L (80.0-97.0) fL MCH 22.3 L (27.0-32.0) pg MCHC 30.2 L (32.0-37.0) g/dL RDW 16.6 H (11.5-14.5) % Neutrophils # 10.90 H (1.80-7.70) 10*3/uL Lymphocytes # 0.78 L (0.90-5.00) 10*3/uL Monocytes # 1.16 H (0.20-1.00) 10*3/uL Eosinophils # 0.00 L (0.04-0.35) 10*3/uL Sodium 135 L (137-145) mmol/L Carbon Dioxide 31 H (22-30) mmol/L Glucose 136 H (74-99) mg/dL
[2025-03-21 14:46] LABS: Basophils # (A) 0.02 10*3/uL (0.00-0.10); Basophils % (A) 0.1 %; HCT 29.2 % (39.6-50.0); HGB 8.8 g/dL (13.0-17.0); Lymphocytes # (A) 0.56 10*3/uL (0.90-5.00); Lymphocytes % (A) 3.8 %; MCH 22.3 pg (27.0-32.0); MCHC 30.1 g/dL (32.0-37.0); MCV 74.1 fL (80.0-97.0); Monocytes # (A) 0.37 10*3/uL (0.20-1.00); Monocytes % (A) 2.5 %; Neutrophils # (A) 13.65 10*3/uL (1.80-7.70); Neutrophils % (A) 93.3 %; Platelet Count 373 10*3/uL (140-440); RBC 3.94 10*6/uL (4.40-5.60); RDW 16.2 % (11.5-14.5); WBC 14.64 10*3/uL (4.50-10.00)
[2025-03-21] MEDS: IPRATROPIUM-ALBUTEROL 3 ML NEB INHALATION SCH (15:31)
--- NOTE | 2025-03-21 21:41 | P.CNPUL ---
History of Present Illness Consult date: 03/21/25 Reason for consult: dyspnea, COPD History of present illness: This is a 64-year-old male patient who is being seen for COPD. The patient was hospitalized for colon surgery. The patient had a recent diagnosis of colon adenocarcinoma and the patient underwent a open extended right hemicolectomy. Surgery was done on 03/19/2025 and the patient patient is currently on the medical floor on oxygen at 3 L/min nasal cannula. Using the incentive spirometer. The patient also has a epidural fentanyl for pain control. No flatus yet. Surgical abdominal wound is currently dry and intact. No fever. No nausea. No emesis. No abdominal distention. The white cell count is 14.6 with a hemoglobin of 8.8 and a platelet count of 373. Electrolytes are all within normal limits. From the pulmonary standpoint, the patient is well-known to me. The patient has COPD with an FEV1 of 45% of predicted. He has been maintained on Breo Ellipta on an outpatient basis in addition to albuterol HFA. He has some increased bronchospasm wheezing. Nevertheless, no dyspnea at rest. He also has history of paroxysmal A-fib, hypertension, hyperlipidemia and is a former smoker and he quit smoking approximately 6 years ago. No new complaints otherwise for now. Review of Systems Constitutional: Reports as per HPI Eyes: denies as per HPI, denies blurred vision, denies bulging eye, denies decr eased vision, denies diplopia, denies discharge, denies dry eye, denies irritation, denies itching, denies pain, denies photophobia, denies loss of peripheral vision, denies loss of vision, denies tunnel vision/blind spots Ears: deny: decreased hearing, ear discharge, earache, tinnitus Ears, nose, mouth and throat: Reports as per HPI Breasts: absent: as per HPI, gynecomastia Cardiovascular: Reports decreased exercise tolerance, Reports dyspnea on exertion Respiratory: Reports dyspnea, Reports home oxygen, Reports wheezing Gastrointestinal: Reports abdominal pain Genitourinary: Reports as per HPI Musculoskeletal: Reports as per HPI Musculoskeletal: absent: ankle pain, ankle stiffness, ankle swelling, as per HPI, elbow pain, elbow stiffness, elbow swelling, foot pain, foot stiffness, foot swelling, hand pain, hand stiffness, hand swelling, hip pain, hip stiffness, hip swelling, knee pain, knee stiffness, knee swelling, shoulder pain, shoulder stiffness, shoulder swelling, wrist pain, wrist stiffness, wrist swelling Integumentary: Reports as per HPI Neurological: Reports as per HPI Psychiatric: Reports as per HPI Endocrine: Reports as per HPI Hematologic/Lymphatic: Reports as per HPI Allergic/Immunologic: Reports as per HPI Past Medical History Past Medical History: Atrial Fibrillation, Atrial Flutter, Cancer (Colon adenocarcinoma), COPD Additional Past Medical History / Comment(s): iireg heart rythym. Pt sees Dr Emery for his heart. COPD, Ex smoker. History of Any Multi-Drug Resistant Organisms: None Reported Past Surgical History: Tonsillectomy Additional Past Surgical History / Comment(s): colonoscopy Past Anesthesia/Blood Transfusion Reactions: No Reported Reaction Additional Past Anesthesia/Blood Transfusion Reaction / Comment(s): no blood transfusions. Past Psychological History: No Psychological Hx Reported Smoking Status: Former smoker Past Alcohol Use History: None Reported Additional Past Alcohol Use History / Comment(s): quit smoking 6yrs ago 1 /2 ppd Past Drug Use History: Marijuana Additional Drug Use History / Comment(s): Current daily marajuana smoker. - Past Family History Father Family Medical History: Myocardial Infarction ([place]) Additional Family Medical History / Comment(s): Father from heart attack at 65 years old. Mother Family Medical History: Cancer Additional Family Medical History / Comment(s): Ovarian cancer Medications and Allergies Home Medications Medication Instructions Recorded Confirmed Type Atorvastatin Calcium [Lipitor] 40 mg PO HS 06/04/23 03/19/25 History Albuterol Inhaler [Ventolin Hfa 2 puff INHALATION Q6H PRN 30 Days 06/16/23 03/14/25 Rx Inhaler] #1 each Fluticasone/Vilanterol [Breo 1 puff INHALATION RT-DAILY 02/20/25 03/19/25 History Ellipta 200-25 Mcg Inhaler] Apixaban [Eliquis] 5 mg PO BID 03/14/25 03/14/25 History Diltiazem Cd [Cardizem CD] 180 mg PO HS 03/14/25 03/19/25 History Magnesium 250 mg PO DAILY 03/14/25 03/14/25 History Metoprolol Tartrate [Lopressor] 50 mg PO DAILY 03/14/25 03/19/25 History Multi Vitamin Gummie 1 tab PO DAILY 03/14/25 03/14/25 History Potassium Chloride ER [K-Dur 10] 10 meq PO DAILY 03/14/25 03/19/25 History Albuterol Inhaler [Ventolin Hfa 2 puff INHALATION Q6HR PRN 03/19/25 03/19/25 History Inhaler] Allergies Allergy/AdvReac Type Severity Reaction Status Date / Time Penicillins Allergy hallucinations Verified 03/19/25 10:03 @ 6-7yrs Physical Exam Vitals: Vital Signs Temp Pulse Pulse Resp BP Pulse Ox 03/21/25 20:09 99 03/21/25 19:59 96 03/21/25 16:36 96 03/21/25 16:24 92 03/21/25 13:58 98.8 F 72 22 136/78 96 03/21/25 12:31 19 96 03/21/25 10:06 88 03/21/25 09:56 87 92 L 03/21/25 07:15 98.2 F 68 18 146/79 98 03/21/25 01:53 98.3 F 101 H 22 117/79 96 03/20/25 23:47 70 03/20/25 23:36 68 Intake and Output 03/21/25 03/21/25 03/21/25 06:59 14:59 22:59 Intake Total 207.45 Output Total 650 400 Balance -650 207.45 -400 Intake: Intake, IV Titration 207.45 Amount Ropivacaine 250 mg 207.45 fentaNYL (PF) 1,250 mcg In Sodium Chloride 0.9% 175 ml @ Per Protocol EPIDURAL .Q0M PRN Rx#: [id number] Output: Urine 650 400 Other: Voiding Method Indwelling Catheter # Voids 1 # Bowel Movements 1 Results - Laboratory Findings CBC and BMP: 03/21/25 14:33 03/21/25 06:01 Abnormal lab findings: Abnormal Labs 03/20/25 03/20/25 03/21/25 03:24 03:24 06:01 WBC 11.05 H 12.89 H RBC 3.75 L 4.30 L Hgb 8.3 L 9.6 L Hct 27.8 L 31.8 L MCV 74.1 L 74.0 L MCH 22.1 L 22.3 L MCHC 29.9 L 30.2 L RDW 16.2 H 16.6 H Immature Gran # 0.05 H Neutrophils # 9.44 H 10.90 H Lymphocytes # 0.73 L 0.78 L Monocytes # 1.16 H Eosinophils # 0 L 0.00 L Microcytosis (manual) 2+ A Sodium Carbon Dioxide BUN/Creatinine Ratio 11.60 L Glucose 120 H 03/21/25 03/21/25 06:01 14:33 WBC 14.64 H RBC 3.94 L Hgb 8.8 L Hct 29.2 L MCV 74.1 L MCH 22.3 L MCHC 30.1 L RDW 16.2 H Immature Gran # Neutrophils # 13.65 H Lymphocytes # 0.56 L Monocytes # Eosinophils # 0.00 L Microcytosis (manual) Sodium 135 L Carbon Dioxide 31 H BUN/Creatinine Ratio Glucose 136 H Assessment and Plan Plan: Chronic adenocarcinoma, status post open right hemicolectomy and surgery was done on 03/19/2025. The patient has adequate pain control with epidural fentanyl and bupivacaine. No flatus. No bowel activity yet. Hemodynamically stable. Hemoglobin stable at 8.8. Chronic anemia, likely secondary to above, hemoglobin remained stable. Noted the patient was having hematochezia prior to his colon surgery attributed to his underlying colon cancer. COPD, severe with an FEV1 of 45% predicted. The patient remains actively bronchospastic and wheezy Acute hypoxic respiratory failure, currently on 3 L of O2 nasal cannula History of proximal atrial fibrillation/flutter, maintained on anticoagulation on outpatient basis and the patient is currently off anticoagulants. Hypertension History of hyperlipidemia Former tobacco dependence, quit smoking cigarettes approximately 6 years ago Plan: Patient is recovering from his surgery. Provided incentive spirometer. Titrate oxygen flow to maintain saturation above 90%, currently on 3 L Continue Symbicort Continue DuoNebs IV Solu-Medrol 40 mg every 8 hours Eliquis remains on hold Heparin subcu for DVT prophylaxis Epidural fentanyl/bupivacaine for pain control Continue Cardizem orally Continue metoprolol 50 mg p.o. daily IV fluids with lactated Ringer at rate of 100 cc an hour Monitor hemoglobin Will continue to follow Time with Patient: Greater than 30
--- NOTE | 2025-03-22 08:30 | P.PN ---
Subjective Progress Note Date: 03/21/25 This is a 64-year-old male who was admitted under surgical services for: Adenocarcinoma and is postop open extended right hemicolectomy. Patient reports he follows with Dr. Randal Castro in the outpatient setting with a past medical history of atrial flutter, COPD, ex smoker, current marijuana use. Patient is postop and maintained on epidural pain pump continues to report significant pain and is complaining of some heartburn with Tums being added and will continue with Protonix IV twice daily. Patient reports is passing gas but has not had a bowel movement pulm occasions will be reviewed and resumed as appropriate and recommend breathing treatments and continued incentive spirometer use. Patient needs tighter blood pressure control as well. Labs reviewed with a white count of 11.05, hemoglobin 8.3, sodium 137, potassium 4.5, BUN 11.6, creatinine 1.06, magnesium is 1.8. Chest x-ray reports tiny bilateral pleural effusions with no acute pulmonary infiltrate. Again strongly stressed the importance of continued incentive spirometer use and increase activity as tolerated. Patient has been started on clear liquid diet per surgery and to be adjusted once small bowel function is noted. 03/21/2025 Patient is seen in follow-up today currently sitting up in the chair status post hemicolectomy reports to feeling a little improved today. Patient did have some increased shortness of breath requiring 3 L with some wheezing and pulmonary was contacted with acute COPD exacerbation. Patient encouraged to use incentive spirometer and is being started on IV steroids along with continued breathing treatments. Wean FiO2 as tolerated and encourage sitting up more frequently and using incentive spirometer at least 10 times every hour while awake. Patient is afebrile and denies any chest pain or worsening shortness of breath. Patient reports he passed a small amount of gas and a small smear of stool noted. Patient is continued on clear liquids and continued on epidural pump and will continue for now per surgery. Labs reveal a continued white count of 12.89 and hemoglobin is 9.6, sodium 135 with a potassium of 4.3, BUN is 15 and creatinine is 1.06. Recommend repeat labs in a.m. and monitor closely. Recommend PT/OT therapy evaluation Review of systems: Constitutional: No reports of fatigue, fever, or chills Cardiovascular: No reports of chest pain or palpitations Respiratory: No reports of worsening shortness of breath or cough, continues with some wheezing GI: No reports of nausea, vomiting, or diarrhea, reports passing small gas and continued abdominal pain : No reports of dysuria or retention Neurovascular: reports of generalized weakness All medications have been reviewed PHYSICAL EXAMINATION: GENERAL: The patient is alert and oriented x3, currently sitting up in the chair, very flat affect. Well developed, thin built, elderly appearing HEENT: Pupils are round and equally reacting to light. EOMI. No scleral icterus. No conjunctival pallor. Normocephalic, atraumatic. No pharyngeal erythema. No thyromegaly. CARDIOVASCULAR: S1 and S2 muffled PULMONARY: Diminished breath sounds bilaterally with some faint expiratory wheezing and coarse rhonchi noted. No accessory muscle use noted ABDOMEN: Soft, thin, tender, nondistended, hypoactive bowel sounds. No palpable organomegaly. MUSCULOSKELETAL: No joint swelling or deformity. EXTREMITIES: No cyanosis, clubbing, or pedal edema. NEUROLOGICAL: Gross neurological examination did not reveal any focal deficits. Diffusely weak SKIN: No rashes. Assessment: Status post open extensive right hemicolectomy secondary to adenocarcinoma Former smoker with history of COPD COPD history, mild acute exacerbation Acute hypoxic respiratory failure secondary to mild acute COPD exacerbation Leukocytosis, possibly reactive on Monday GERD History of atrial flutter THC use GI prophylaxis DVT prophylaxis Full code Plan: Patient admitted under surgery status post open extended right hemicolectomy se condary to adenocarcinoma Patient is maintained on clear liquids for general surgery and will be advanced per surgery once more bowel function is noted Patient continues on epidural pump and will continue to control pain per general surgery Possible PT/OT therapy if patient is weak once epidural pump has been removed Follow-up on repeat labs and replace electrolytes per protocol Monitor white count closely and monitor for any fevers, currently afebrile and will follow-up on labs in the a.m. to monitor white count. Chest x-ray showing some tiny pleural effusions and recommend decreasing IV hydr ation and encouraging incentive spirometer use at least 10 times every hour while awake. Patient continuing to have some wheezing and pulmonary was consulted started on IV steroids and will continue on breathing treatments as previously ordered. Patient does have a COPD history and reports to being a former smoker Encouraged increased activity as tolerated with sitting up in the chair more frequently and also continuing incentive spirometer use at least 10 times every hour while awake We will continue to follow with general surgery during hospitalization. Thank you kindly for this consultation. The impression and plan of care has been dictated by Heydi Munoz, Nurse Practitioner as directed. Dr. Brian MD I have performed a history and examination and MDM of this patient, discussed the same with the dictator, and agree with the dictator's assessment and plan as written ,documented as a scribe. Based on total visit time, I have performed more than 50% of the visit. Objective - Vital Signs Vital signs: Vital Signs Temp 98.2 F 03/21/25 07:15 Pulse 68 03/21/25 07:15 Resp 18 03/21/25 07:15 BP 146/79 03/21/25 07:15 Pulse Ox 98 03/21/25 07:15 FiO2 Intake & Output 03/20/25 03/21/25 03/21/25 18:59 06:59 18:59 Intake Total 1650.0 Output Total 1000 650 Balance 650.0 -650 Intake: Intake, IV Titration 1650.0 Amount ACETAMINOPHEN IV (For NPO 200 ) 1,000 mg In Empty Bag 1 bag @ 400 mls/hr IVPB Q6HR [facility] Rx#:[id number] Lactated Ringers 1,000 ml 1200 @ 100 mls/hr IV .Q10H [facility] Rx#:[id number] Ropivacaine 250 mg 250.0 fentaNYL (PF) 1,250 mcg In Sodium Chloride 0.9% 175 ml @ Per Protocol EPIDURAL .Q0M PRN Rx#: [id number] Output: Urine 1000 650 Other: Voiding Method Indwelling Catheter Indwelling Catheter Indwelling Catheter # Voids 1 - Labs CBC & Chem 7: 03/21/25 14:33 03/21/25 06:01 Labs: Abnormal Lab Results - Last 24 Hours (Table) 03/20/25 03/21/25 03/21/25 Range/Units 03:24 06:01 06:01 WBC 12.89 H (4.50-10.00) 10*3/uL RBC 4.30 L (4.40-5.60) 10*6/uL Hgb 9.6 L (13.0-17.0) g/dL Hct 31.8 L (39.6-50.0) % MCV 74.0 L (80.0-97.0) fL MCH 22.3 L (27.0-32.0) pg MCHC 30.2 L (32.0-37.0) g/dL RDW 16.6 H (11.5-14.5) % Immature Gran # 0.05 H (0.00-0.04) X 10*3/uL Neutrophils # 9.44 H 10.90 H (1.80-7.70) X 10*3/uL Lymphocytes # 0.73 L 0.78 L (0.90-5.00) X 10*3/uL Monocytes # 1.16 H (0.20-1.00) 10*3/uL Eosinophils # 0 L 0.00 L (0.04-0.35) X 10*3/uL Microcytosis (manual) 2+ A (None Seen) Sodium 135 L (137-145) mmol/L Carbon Dioxide 31 H (22-30) mmol/L Glucose 136 H (74-99) mg/dL
--- NOTE | 2025-03-22 08:47 | P.PN ---
Progress Note - Text Progress Note Date: 03/22/25 64-year-old male POD#3 s/p exploratory lap. Patient had epidural catheter for postop pain control with a solution running at 9 cc an hour with moderate pain treated with multimodal analgesic regimen. No motor or sensory deficit noted. Ambulated w/o difficulty. Epidural site clean and dry. Plan to d/c epidural today.
[2025-03-22 09:22] LABS: Basophils # (A) 0.01 X 10*3/uL (0.00-0.10); Basophils % (A) 0.1 %; Eosinophils # (A) 0 X 10*3/uL (0.04-0.35); Eosinophils % (A) 0 %; HCT 26.4 % (39.6-50.0); HGB 7.9 g/dL (13.0-17.0); Lymphocytes # (A) 0.58 X 10*3/uL (0.90-5.00); Lymphocytes % (A) 6.6 %; MCH 22.2 pg (27.0-32.0); MCHC 29.9 g/dL (32.0-37.0); MCV 74.2 FL (80.0-97.0); Mean Platelet Volume 10.7 FL (9.5-12.2); Monocytes # (A) 0.38 X 10*3/uL (0.20-1.00); Monocytes % (A) 4.4 %; NRBC Per 100 WBC 0 X 10*3/uL (0.00-0.01); Neutrophils # (A) 7.72 X 10*3/uL (1.80-7.70); Neutrophils % (A) 88.4 %; Platelet Count 201 X 10*3/uL (140-440); RBC 3.56 X 10*6/uL (4.40-5.60); RDW 16.6 % (11.5-14.5); WBC 8.73 X 10*3/uL (4.50-10.00)
[2025-03-22 09:38] LABS: BUN/Creat Ratio 18.25 Ratio (12.00-20.00); Blood Urea Nitrogen 14.6 mg/dL (9.0-27.0); Calcium 8.7 mg/dL (8.7-10.3); Carbon Dioxide 26.5 mmol/L (21.6-31.8); Chloride 100 mmol/L (96-109); Glucose 130 mg/dL (70-110); Magnesium 2.1 mg/dL (1.5-2.4); Potassium 4.2 mmol/L (3.5-5.5); Sodium 135 mmol/L (135-145)
--- NOTE | 2025-03-22 11:54 | P.PN ---
Subjective Progress Note Date: 03/22/25 Patient seen and examined at bedside. Had a small bowel movement yesterday. Epidural in place. Moses catheter in place. Out of bed and in chair currently. States pain is well-controlled. Objective - Vital Signs Vital signs: Vital Signs Temp 98.1 F 03/22/25 07:27 Pulse 88 03/22/25 08:53 Resp 17 03/22/25 07:27 BP 138/64 03/22/25 07:27 Pulse Ox 91 L 03/22/25 08:40 FiO2 Intake & Output 03/21/25 03/22/25 03/22/25 18:59 06:59 18:59 Intake Total 207.45 0 Output Total 400 550 Balance -192.55 -550 Intake: Intake, IV Titration 207.45 Amount Ropivacaine 250 mg 207.45 fentaNYL (PF) 1,250 mcg In Sodium Chloride 0.9% 175 ml @ Per Protocol EPIDURAL .Q0M PRN Rx#: [id number] Oral 0 Output: Urine 400 550 Other: Voiding Method Indwelling Catheter Indwelling Catheter # Voids 0 # Bowel Movements 1 - Constitutional General appearance: Present: cooperative - Respiratory Details: No difficulty with respiration - Gastrointestinal Gastrointestinal Comment(s): Soft, nontender, mildly distended, no rebound or guarding, midline incision with surgical dressing in place - Psychiatric Psychiatric: Present: A&O x's 3 - Labs CBC & Chem 7: 03/22/25 06:13 03/22/25 06:13 Labs: Abnormal Lab Results - Last 24 Hours (Table) 03/21/25 03/22/25 03/22/25 Range/Units 14:33 06:13 06:13 WBC 14.64 H (4.50-10.00) 10*3/uL RBC 3.94 L 3.56 L (4.40-5.60) 10*6/uL Hgb 8.8 L 7.9 L (13.0-17.0) g/dL Hct 29.2 L 26.4 L (39.6-50.0) % MCV 74.1 L 74.2 L (80.0-97.0) fL MCH 22.3 L 22.2 L (27.0-32.0) pg MCHC 30.1 L 29.9 L (32.0-37.0) g/dL RDW 16.2 H 16.6 H (11.5-14.5) % Neutrophils # 13.65 H 7.72 H (1.80-7.70) 10*3/uL Lymphocytes # 0.56 L 0.58 L (0.90-5.00) 10*3/uL Eosinophils # 0.00 L 0 L (0.04-0.35) 10*3/uL Glucose 130 H (70-110) mg/dL Assessment and Plan Plan: Postoperative day 3, extended right hemicolectomy. Continue clear liquid diet. Continue to increase activity. Case discussed with anesthesia, likely removal of epidural and Moses catheter tomorrow. Continue incentive spirometry. Appreciate pulmonology recommendations.
--- NOTE | 2025-03-22 12:45 | P.PN ---
Subjective Progress Note Date: 03/22/25 This is a 64-year-old male patient who is being seen for COPD. The patient was hospitalized for colon surgery. The patient had a recent diagnosis of colon adenocarcinoma and the patient underwent a open extended right hemicolectomy. Surgery was done on 03/19/2025 and the patient patient is currently on the medical floor on oxygen at 3 L/min nasal cannula. Using the incentive spirometer. The patient also has a epidural fentanyl for pain control. No flatus yet. Surgical abdominal wound is currently dry and intact. No fever. No nausea. No emesis. No abdominal distention. The white cell count is 14.6 with a hemoglobin of 8.8 and a platelet count of 373. Electrolytes are all within normal limits. From the pulmonary standpoint, the patient is well-known to me. The patient has COPD with an FEV1 of 45% of predicted. He has been maintained on Breo Ellipta on an outpatient basis in addition to albuterol HFA. He has some increased bronchospasm wheezing. Nevertheless, no dyspnea at rest. He also has history of paroxysmal A-fib, hypertension, hyperlipidemia and is a former smoker and he quit smoking approximately 6 years ago. No new complaints otherwise for now. On 03/22/2025, the patient is being seen for a follow-up. The patient is feeling better less bronchospastic and wheezy compared to yesterday. Sitting up in a chair. The bowel movement yesterday. He is taking popsicles. No significant abdominal pain. No nausea or vomiting. No chest pain. No emesis. He is on Du oNeb of chest. On Symbicort and is also on IV Solu-Medrol. White cell count of 8.7 with a hemoglobin 7.9 and platelet count of 201. Electrolytes all within normal limits remaining of 14 and a creatinine of 0.8. He is currently on 4 L of oxygen nasal cannula with a pulse ox of 91%. He is using the incentive spirometer. No other significant events overnight. Objective - Vital Signs Vital signs: Vital Signs Temp 98.1 F 03/22/25 07:27 Pulse 88 03/22/25 08:53 Resp 17 03/22/25 07:27 BP 138/64 03/22/25 07:27 Pulse Ox 91 L 03/22/25 08:40 FiO2 Intake & Output 0603/22/25 03/22/25 18:59 06:59 18:59 Intake Total 207.45 0 Output Total 400 550 Balance -192.55 -550 Intake: Intake, IV Titration 207.45 Amount Ropivacaine 250 mg 207.45 fentaNYL (PF) 1,250 mcg In Sodium Chloride 0.9% 175 ml @ Per Protocol EPIDURAL .Q0M PRN Rx#: [id number] Oral 0 Output: Urine 400 550 Other: Voiding Method Indwelling Catheter Indwelling Catheter # Voids 0 # Bowel Movements 1 - Exam The patient appeared well nourished and normally developed. Vital signs as d ocumented. The patient is currently on 40 selection by nasal cannula Head exam is unremarkable. No scleral icterus or corneal arcus noted. Neck is without jugular venous distension, thyromegaly, or carotid bruits. Carotid upstrokes are brisk bilaterally. Lungs are few scattered expiratory wheezes and marked improvement in the bronchospasm wheezing that was noted earlier Cardiac exam reveals the PMI to be normally sized and situated. Rhythm is regular. First and second heart sounds normal. No murmurs, rubs or gallops. Abdominal exam reveals diminished bowel sounds, no masses, no organomegaly and no aortic enlargement. Hypoactive bowel sounds in the patient has no significant direct or rebound tenderness. Surgical wound is dry clean and intact. Extremities are nonedematous and both femoral and pedal pulses are normal. Examination of the skin revealed no evidence of significant rashes, suspicious appearing nevi or other concerning lesions. Neurologically, the patient is awake and alert and the patient does not have any focal neurological deficit. Cranial nerves are essentially intact. - Labs CBC & Chem 7: 03/22/25 06:13 03/22/25 06:13 Labs: Abnormal Lab Results - Last 24 Hours (Table) 03/21/25 03/22/25 03/22/25 Range/Units 14:33 06:13 06:13 WBC 14.64 H (4.50-10.00) 10*3/uL RBC 3.94 L 3.56 L (4.40-5.60) 10*6/uL Hgb 8.8 L 7.9 L (13.0-17.0) g/dL Hct 29.2 L 26.4 L (39.6-50.0) % MCV 74.1 L 74.2 L (80.0-97.0) fL MCH 22.3 L 22.2 L (27.0-32.0) pg MCHC 30.1 L 29.9 L (32.0-37.0) g/dL RDW 16.2 H 16.6 H (11.5-14.5) % Neutrophils # 13.65 H 7.72 H (1.80-7.70) 10*3/uL Lymphocytes # 0.56 L 0.58 L (0.90-5.00) 10*3/uL Eosinophils # 0.00 L 0 L (0.04-0.35) 10*3/uL Glucose 130 H (70-110) mg/dL Assessment and Plan Plan: Chronic adenocarcinoma, status post open right hemicolectomy and surgery was done on 03/19/2025. The patient has adequate pain control with epidural fentanyl and bupivacaine. No flatus. No bowel activity yet. Hemodynamically stable. Hemoglobin stable Chronic anemia, likely secondary to above, hemoglobin remained stable. Noted the patient was having hematochezia prior to his colon surgery attributed to his underlying colon cancer. COPD, severe with an FEV1 of 45% predicted. The patient remains actively bronchospastic and wheezy, improved with the combination of bronchodilators and steroids. Acute hypoxic respiratory failure, currently on 4 L of O2 nasal cannula History of proximal atrial fibrillation/flutter, maintained on anticoagulation on outpatient basis and the patient is currently off anticoagulants. Hypertension History of hyperlipidemia Former tobacco dependence, quit smoking cigarettes approximately 6 years ago Plan: Patient is recovering from his surgery. Provided incentive spirometer. Titrate oxygen flow to maintain saturation above 90%, currently on 4 L nasal cannula Continue Symbicort Continue DuoNebs IV Solu-Medrol 40 mg every 8 hours Eliquis remains on hold Heparin subcu for DVT prophylaxis Epidural fentanyl/bupivacaine for pain control Continue Cardizem orally Continue metoprolol 50 mg p.o. daily IV fluids with lactated Ringer at rate of 100 cc an hour Monitor hemoglobin Will continue to follow Time with Patient: Greater than 30
[2025-03-22] MEDS: HYDROcodone/APAP 7.5-325MG 1 EACH TAB PO PRN (20:39)
--- NOTE | 2025-03-23 07:51 | P.PN ---
Subjective Progress Note Date: 03/22/25 This is a 64-year-old male who was admitted under surgical services for: Adenocarcinoma and is postop open extended right hemicolectomy. Patient reports he follows with Dr. Randal Castro in the outpatient setting with a past medical history of atrial flutter, COPD, ex smoker, current marijuana use. Patient is postop and maintained on epidural pain pump continues to report significant pain and is complaining of some heartburn with Tums being added and will continue with Protonix IV twice daily. Patient reports is passing gas but has not had a bowel movement pulm occasions will be reviewed and resumed as appropriate and recommend breathing treatments and continued incentive spirometer use. Patient needs tighter blood pressure control as well. Labs reviewed with a white count of 11.05, hemoglobin 8.3, sodium 137, potassium 4.5, BUN 11.6, creatinine 1.06, magnesium is 1.8. Chest x-ray reports tiny bilateral pleural effusions with no acute pulmonary infiltrate. Again strongly stressed the importance of continued incentive spirometer use and increase activity as tolerated. Patient has been started on clear liquid diet per surgery and to be adjusted once small bowel function is noted. 03/21/2025 Patient is seen in follow-up today currently sitting up in the chair status post hemicolectomy reports to feeling a little improved today. Patient did have some increased shortness of breath requiring 3 L with some wheezing and pulmonary was contacted with acute COPD exacerbation. Patient encouraged to use incentive spirometer and is being started on IV steroids along with continued breathing treatments. Wean FiO2 as tolerated and encourage sitting up more frequently and using incentive spirometer at least 10 times every hour while awake. Patient is afebrile and denies any chest pain or worsening shortness of breath. Patient reports he passed a small amount of gas and a small smear of stool noted. Patient is continued on clear liquids and continued on epidural pump and will continue for now per surgery. Labs reveal a continued white count of 12.89 and hemoglobin is 9.6, sodium 135 with a potassium of 4.3, BUN is 15 and creatinine is 1.06. Recommend repeat labs in a.m. and monitor closely. Recommend PT/OT therapy evaluation 03/22/2025 Patient is seen and evaluated in follow-up currently sitting up in the chair continues with generalized weakness and would recommend PT/OT therapy evaluation and getting up more frequently. Patient does continue on pain pump and will continue per anesthesia for another 24 hours and continues with indwelling Moses catheter. Patient white count has normalized at 8.73 and hemoglobin is stable with no active bleeding although slightly lower at 7.9, platelets are 201. Sodium is 135 with a potassium of 4.2, BUN is 14.6 and creatinine has improved at 0.8. Magnesium is stable at 2.1. Weaning FiO2 as tolerated as patient does not wear oxygen outpatient and is maintained on 2 to 3 L. Encouraged incentive spirometer use at least 10 times every hour while awake. Patient to continue on clear liquids per general surgery until improved bowel function is noted. Review of systems: Constitutional: No reports of fatigue, fever, or chills Cardiovascular: No reports of chest pain or palpitations Respiratory: No reports of worsening shortness of breath or cough, continues with some wheezing GI: No reports of nausea, vomiting, or diarrhea, reports passing small gas and continued abdominal pain : No reports of dysuria or retention Neurovascular: reports of generalized weakness All medications have been reviewed PHYSICAL EXAMINATION: GENERAL: The patient is alert and oriented x3, currently sitting up in the daniella ir, very flat affect. Well developed, thin built, elderly appearing HEENT: Pupils are round and equally reacting to light. EOMI. No scleral icterus. No conjunctival pallor. Normocephalic, atraumatic. No pharyngeal erythema. No thyromegaly. CARDIOVASCULAR: S1 and S2 muffled PULMONARY: Diminished breath sounds bilaterally with some faint expiratory wheezing and coarse rhonchi noted. No accessory muscle use noted ABDOMEN: Soft, thin, tender, nondistended, hypoactive bowel sounds. No palpable organomegaly. MUSCULOSKELETAL: No joint swelling or deformity. EXTREMITIES: No cyanosis, clubbing, or pedal edema. NEUROLOGICAL: Gross neurological examination did not reveal any focal deficits. Diffusely weak SKIN: No rashes. Assessment: Status post open extensive right hemicolectomy secondary to adenocarcinoma Former smoker with history of COPD COPD history, mild acute exacerbation Acute hypoxic respiratory failure secondary to mild acute COPD exacerbation Leukocytosis, possibly reactive and has normalized GERD History of atrial flutter THC use GI prophylaxis DVT prophylaxis Full code Plan: Patient admitted under surgery status post open extended right hemicolectomy secondary to adenocarcinoma Patient is maintained on clear liquids for general surgery and will be advanced per surgery once more bowel function is noted Patient continues on epidural pump and will continue to control pain per general surgery. Anesthesia recommending continuing epidural at this time Possible PT/OT therapy if patient is weak once epidural pump has been removed Follow-up on repeat labs and replace electrolytes per protocol Monitor white count closely and monitor for any fevers, currently afebrile and will follow-up on labs in the a.m. to monitor white count. White count has normalized, hemoglobin is 7.9 with no active bleeding although recommend monitoring closely and transfuse if 7 or less Chest x-ray showing some tiny pleural effusions and recommend decreasing IV hydration and encouraging incentive spirometer use at least 10 times every hour while awake. Patient continuing to have some wheezing and pulmonary following as started on IV steroids and will continue on breathing treatments as previously ordered. Patient does have a COPD history and reports to being a former smoker Encouraged increased activity as tolerated with sitting up in the chair more frequently and also continuing incentive spirometer use at least 10 times every hour while awake We will continue to follow with general surgery during hospitalization. Thank you kindly for this consultation. The impression and plan of care has been dictated as a scribe by Heydi Munoz, Nurse Practitioner as directed. Dr. Brian MD I have performed a history and examination and MDM of this patient, discussed the same with the dictator, and agree with the dictator's assessment and plan as written ,documented as a scribe. Based on total visit time, I have performed more than 50% of the visit. Objective - Vital Signs Vital signs: Vital Signs Temp 98.1 F 03/22/25 07:27 Pulse 78 03/22/25 07:27 Resp 17 03/22/25 07:27 BP 138/64 03/22/25 07:27 Pulse Ox 92 L 03/22/25 07:27 FiO2 Intake & Output 03/21/25 03/22/25 03/22/25 18:59 06:59 18:59 Intake Total 207.45 0 Output Total 400 550 Balance -192.55 -550 Intake: Intake, IV Titration 207.45 Amount Ropivacaine 250 mg 207.45 fentaNYL (PF) 1,250 mcg In Sodium Chloride 0.9% 175 ml @ Per Protocol EPIDURAL .Q0M PRN Rx#: [id number] Oral 0 Output: Urine 400 550 Other: Voiding Method Indwelling Catheter Indwelling Catheter # Voids 0 # Bowel Movements 1 - Labs CBC & Chem 7: 03/22/25 06:13 03/22/25 06:13 Labs: Abnormal Lab Results - Last 24 Hours (Table) 03/21/25 Range/Units 14:33 WBC 14.64 H (4.50-10.00) 10*3/uL RBC 3.94 L (4.40-5.60) 10*6/uL Hgb 8.8 L (13.0-17.0) g/dL Hct 29.2 L (39.6-50.0) % MCV 74.1 L (80.0-97.0) fL MCH 22.3 L (27.0-32.0) pg MCHC 30.1 L (32.0-37.0) g/dL RDW 16.2 H (11.5-14.5) % Neutrophils # 13.65 H (1.80-7.70) 10*3/uL Lymphocytes # 0.56 L (0.90-5.00) 10*3/uL Eosinophils # 0.00 L (0.04-0.35) 10*3/uL
[2025-03-23 08:55] LABS: HCT 27.5 % (39.6-50.0); HGB 8.4 g/dL (13.0-17.0); Lymphocytes # (A) 0.48 10*3/uL (0.90-5.00); Lymphocytes % (A) 5.6 %; MCH 22.4 pg (27.0-32.0); MCHC 30.5 g/dL (32.0-37.0); MCV 73.3 fL (80.0-97.0); Mean Platelet Volume 9.9 fL (9.5-12.2); Monocytes # (A) 0.22 10*3/uL (0.20-1.00); Monocytes % (A) 2.6 %; Neutrophils # (A) 7.74 10*3/uL (1.80-7.70); Neutrophils % (A) 90.9 %; Platelet Count 359 10*3/uL (140-440); RBC 3.75 10*6/uL (4.40-5.60); RDW 16.3 % (11.5-14.5); WBC 8.52 10*3/uL (4.50-10.00)
[2025-03-23 09:13] LABS: ALT 21 U/L (4-49); AST 23 U/L (17-59); African American GFR (CKD) >90 (>60 ml/min/1.73 sqM); Albumin 3.2 g/dL (3.5-5.0); Albumin/Globulin Ratio 1.3; Alkaline Phosphatase 93 U/L (38-126); Anion Gap 7 mmol/L; Blood Urea Nitrogen 17 mg/dL (9-20); Calcium 8.8 mg/dL (8.4-10.2); Carbon Dioxide 28 mmol/L (22-30); Chloride 100 mmol/L (98-107); Globulin 2.4 g/dL; Glucose 174 mg/dL (74-99); Non-African American GFR(CKD) >90 (>60 ml/min/1.73 sqM); Potassium 3.7 mmol/L (3.5-5.1); Sodium 135 mmol/L (137-145); Total Bilirubin 0.5 mg/dL (0.2-1.3); Total Protein 5.6 g/dL (6.3-8.2)
[2025-03-23] MEDS: APIXABAN 5 MG TAB PO SCH (10:20)
--- NOTE | 2025-03-23 10:44 | P.PN ---
Subjective Progress Note Date: 03/23/25 Patient seen and examined at bedside. Epidural removed today along with Moses catheter this morning. Patient states abdominal pain is controlled. Objective - Vital Signs Vital signs: Vital Signs Temp 97.8 F 03/23/25 07:19 Pulse 120 H 03/23/25 09:00 Resp 18 03/23/25 07:19 BP 143/78 03/23/25 07:19 Pulse Ox 93 L 03/23/25 08:49 FiO2 Intake & Output 03/22/25 03/23/25 03/23/25 18:59 06:59 18:59 Intake Total 232.05 1000 Output Total 1000 3000 400 Balance -767.95 -2000 -400 Intake: Intake, IV Titration 232.05 Amount Ropivacaine 250 mg 232.05 fentaNYL (PF) 1,250 mcg In Sodium Chloride 0.9% 175 ml @ Per Protocol EPIDURAL .Q0M PRN Rx#: [id number] Oral 1000 Output: Urine 1000 3000 400 Other: Voiding Method Indwelling Catheter - Constitutional General appearance: Present: cooperative, no acute distress - Gastrointestinal Gastrointestinal Comment(s): Soft, appropriate tenderness, mild distention, midline incision with surgical dressing in place - Psychiatric Psychiatric: Present: A&O x's 3 - Labs CBC & Chem 7: 03/23/25 08:13 03/23/25 08:13 Labs: Abnormal Lab Results - Last 24 Hours (Table) 03/23/25 03/23/25 Range/Units 08:13 08:13 RBC 3.75 L (4.40-5.60) 10*6/uL Hgb 8.4 L (13.0-17.0) g/dL Hct 27.5 L (39.6-50.0) % MCV 73.3 L (80.0-97.0) fL MCH 22.4 L (27.0-32.0) pg MCHC 30.5 L (32.0-37.0) g/dL RDW 16.3 H (11.5-14.5) % Immature Gran # 0.08 H (0.00-0.04) 10*3/uL Neutrophils # 7.74 H (1.80-7.70) 10*3/uL Lymphocytes # 0.48 L (0.90-5.00) 10*3/uL Eosinophils # 0.00 L (0.04-0.35) 10*3/uL Sodium 135 L (137-145) mmol/L Glucose 174 H (74-99) mg/dL Total Protein 5.6 L (6.3-8.2) g/dL Albumin 3.2 L (3.5-5.0) g/dL Assessment and Plan Plan: Postoperative, extended right hemicolectomy. Removal of epidural catheter today along with Moses catheter. Increase ambulation. Patient has gone into atrial fibrillation, cardiology consulted and patient started on Cardizem. Patient to restart anticoagulation. Await further bowel function. Advance to full liquid diet.
--- NOTE | 2025-03-23 14:53 | P.PN ---
Subjective Progress Note Date: 03/23/25 This is a 64-year-old male patient who is being seen for COPD. The patient was hospitalized for colon surgery. The patient had a recent diagnosis of colon adenocarcinoma and the patient underwent a open extended right hemicolectomy. Surgery was done on 03/19/2025 and the patient patient is currently on the medical floor on oxygen at 3 L/min nasal cannula. Using the incentive spirometer. The patient also has a epidural fentanyl for pain control. No flatus yet. Surgical abdominal wound is currently dry and intact. No fever. No nausea. No emesis. No abdominal distention. The white cell count is 14.6 with a hemoglobin of 8.8 and a platelet count of 373. Electrolytes are all within normal limits. From the pulmonary standpoint, the patient is well-known to me. The patient has COPD with an FEV1 of 45% of predicted. He has been maintained on Breo Ellipta on an outpatient basis in addition to albuterol HFA. He has some increased bronchospasm wheezing. Nevertheless, no dyspnea at rest. He also has history of paroxysmal A-fib, hypertension, hyperlipidemia and is a former smoker and he quit smoking approximately 6 years ago. No new complaints otherwise for now. On 03/22/2025, the patient is being seen for a follow-up. The patient is feeling better less bronchospastic and wheezy compared to yesterday. Sitting up in a chair. The bowel movement yesterday. He is taking popsicles. No significant abdominal pain. No nausea or vomiting. No chest pain. No emesis. He is on Du oNeb of chest. On Symbicort and is also on IV Solu-Medrol. White cell count of 8.7 with a hemoglobin 7.9 and platelet count of 201. Electrolytes all within normal limits remaining of 14 and a creatinine of 0.8. He is currently on 4 L of oxygen nasal cannula with a pulse ox of 91%. He is using the incentive spirometer. No other significant events overnight. 62,025, the patient is stable. 03/23/2025, the patient is stable. Denies having any specific complaints. Respiratory testing stable. He is advancing his diet. No fever. No chills. No nausea vomiting or abdominal pain. Blood work remains stable with a white cell count of 8.5 with a hemoglobin of 8.4 and a platelet count of 359. BUN 17 with a creatinine of 0.8 and sodium levels of 135. No other significant events overnight and general surgery remains on the case. Using incentive spirometer. Ambulating. Passing flatus Objective - Vital Signs Vital signs: Vital Signs Temp 97.8 F 03/23/25 07:19 Pulse 120 H 03/23/25 09:00 Resp 18 03/23/25 07:19 BP 143/78 03/23/25 07:19 Pulse Ox 93 L 03/23/25 08:49 FiO2 Intake & Output 03/22/25 03/23/25 03/23/25 18:59 06:59 18:59 Intake Total 232.05 1000 Output Total 1000 3000 400 Balance -767.95 -1999 -400 Intake: Intake, IV Titration 232.05 Amount Ropivacaine 250 mg 232.05 fentaNYL (PF) 1,250 mcg In Sodium Chloride 0.9% 175 ml @ Per Protocol EPIDURAL .Q0M PRN Rx#: [id number] Oral 1000 Output: Urine 1000 3000 400 Other: Voiding Method Indwelling Catheter - Exam The patient appeared well nourished and normally developed. Vital signs as documented. The patient is currently on 40 selection by nasal cannula Head exam is unremarkable. No scleral icterus or corneal arcus noted. Neck is without jugular venous distension, thyromegaly, or carotid bruits. Carotid upstrokes are brisk bilaterally. Lungs are few scattered expiratory wheezes and marked improvement in the bronchospasm wheezing that was noted earlier Cardiac exam reveals the PMI to be normally sized and situated. Rhythm is regular. First and second heart sounds normal. No murmurs, rubs or gallops. Abdominal exam reveals diminished bowel sounds, no masses, no organomegaly and no aortic enlargement. Hypoactive bowel sounds in the patient has no significant direct or rebound tenderness. Surgical wound is dry clean and intact. Extremities are nonedematous and both femoral and pedal pulses are normal. Examination of the skin revealed no evidence of significant rashes, suspicious appearing nevi or other concerning lesions. Neurologically, the patient is awake and alert and the patient does not have any focal neurological deficit. Cranial nerves are essentially intact. - Labs CBC & Chem 7: 03/23/25 08:13 03/23/25 08:13 Labs: Abnormal Lab Results - Last 24 Hours (Table) 03/23/25 03/23/25 Range/Units 08:13 08:13 RBC 3.75 L (4.40-5.60) 10*6/uL Hgb 8.4 L (13.0-17.0) g/dL Hct 27.5 L (39.6-50.0) % MCV 73.3 L (80.0-97.0) fL MCH 22.4 L (27.0-32.0) pg MCHC 30.5 L (32.0-37.0) g/dL RDW 16.3 H (11.5-14.5) % Immature Gran # 0.08 H (0.00-0.04) 10*3/uL Neutrophils # 7.74 H (1.80-7.70) 10*3/uL Lymphocytes # 0.48 L (0.90-5.00) 10*3/uL Eosinophils # 0.00 L (0.04-0.35) 10*3/uL Sodium 135 L (137-145) mmol/L Glucose 174 H (74-99) mg/dL Total Protein 5.6 L (6.3-8.2) g/dL Albumin 3.2 L (3.5-5.0) g/dL Assessment and Plan Plan: Chronic adenocarcinoma, status post open right hemicolectomy and surgery was done on 03/19/2025. The patient has adequate pain control with epidural fentanyl and bupivacaine. No flatus. No bowel activity yet. Hemodynamically stable. H emoglobin stable Chronic anemia, likely secondary to above, hemoglobin remained stable. Noted th e patient was having hematochezia prior to his colon surgery attributed to his underlying colon cancer. COPD, severe with an FEV1 of 45% predicted. The patient remains actively bronchospastic and wheezy, improved with the combination of bronchodilators and steroids. Acute hypoxic respiratory failure, currently on 4 L of O2 nasal cannula History of proximal atrial fibrillation/flutter, maintained on anticoagulation on outpatient basis and the patient is currently back on anticoagulants. Hypertension History of hyperlipidemia Former tobacco dependence, quit smoking cigarettes approximately 6 years ago Plan: Patient is recovering from his surgery. Provided incentive spirometer. Titrate oxygen flow to maintain saturation above 90%, currently on 4 L nasal cannula Continue Symbicort Continue DuoNebs IV Solu-Medrol 40 mg every 8 hours Eliquis remains on hold Heparin subcu for DVT prophylaxis Epidural catheter has been discontinued and the patient has good pain control. Continue Cardizem orally Continue metoprolol 50 mg p.o. daily Anticoagulation has been started with Eliquis. IV fluids with lactated Ringer at rate of 75 cc an hour Monitor hemoglobin Will continue to follow back on
[2025-03-23] MEDS: SENNOSIDES 8.6 MG TAB PO SCH (17:24)
[2025-03-23] MEDS: METOPROLOL TARTRATE 25 MG TAB PO STA (18:10)
--- NOTE | 2025-03-23 22:27 | P.PN ---
Subjective Progress Note Date: 03/23/25 This is a 64-year-old male who was admitted under surgical services for: Adenocarcinoma and is postop open extended right hemicolectomy. Patient reports he follows with Dr. Randal Castro in the outpatient setting with a past medical history of atrial flutter, COPD, ex smoker, current marijuana use. Patient is postop and maintained on epidural pain pump continues to report significant pain and is complaining of some heartburn with Tums being added and will continue with Protonix IV twice daily. Patient reports is passing gas but has not had a bowel movement pulm occasions will be reviewed and resumed as appropriate and recommend breathing treatments and continued incentive spirometer use. Patient needs tighter blood pressure control as well. Labs reviewed with a white count of 11.05, hemoglobin 8.3, sodium 137, potassium 4.5, BUN 11.6, creatinine 1.06, magnesium is 1.8. Chest x-ray reports tiny bilateral pleural effusions with no acute pulmonary infiltrate. Again strongly stressed the importance of continued incentive spirometer use and increase activity as tolerated. Patient has been started on clear liquid diet per surgery and to be adjusted once small bowel function is noted. 03/21/2025 Patient is seen in follow-up today currently sitting up in the chair status post hemicolectomy reports to feeling a little improved today. Patient did have some increased shortness of breath requiring 3 L with some wheezing and pulmonary was contacted with acute COPD exacerbation. Patient encouraged to use incentive spirometer and is being started on IV steroids along with continued breathing treatments. Wean FiO2 as tolerated and encourage sitting up more frequently and using incentive spirometer at least 10 times every hour while awake. Patient is afebrile and denies any chest pain or worsening shortness of breath. Patient reports he passed a small amount of gas and a small smear of stool noted. Patient is continued on clear liquids and continued on epidural pump and will continue for now per surgery. Labs reveal a continued white count of 12.89 and hemoglobin is 9.6, sodium 135 with a potassium of 4.3, BUN is 15 and creatinine is 1.06. Recommend repeat labs in a.m. and monitor closely. Recommend PT/OT therapy evaluation 03/22/2025 Patient is seen and evaluated in follow-up currently sitting up in the chair continues with generalized weakness and would recommend PT/OT therapy evaluation and getting up more frequently. Patient does continue on pain pump and will continue per anesthesia for another 24 hours and continues with indwelling Moses catheter. Patient white count has normalized at 8.73 and hemoglobin is stable with no active bleeding although slightly lower at 7.9, platelets are 201. Sodium is 135 with a potassium of 4.2, BUN is 14.6 and creatinine has improved at 0.8. Magnesium is stable at 2.1. Weaning FiO2 as tolerated as patient does not wear oxygen outpatient and is maintained on 2 to 3 L. Encouraged incentive spirometer use at least 10 times every hour while awake. Patient to continue on clear liquids per general surgery until improved bowel function is noted. 03/23/2025 Patient is seen in follow-up today and heart rates elevated into the 1 teens and 120s does take metoprolol along with Cardizem daily which have been resumed recommend EKG as patient does have history of atrial fibrillation. Patient denies any chest pain or palpitations at this time. Patient is continued on 3 L and will continue to wean as tolerated. Epidural was accidentally pulled per patient and will continue with bowel regimen and pain management per general surgery. Recommend discontinuing indwelling Moses catheter and encouraging increase activity as tolerated. Patient is afebrile and white count has improved. Patient is continued on IV steroids along with breathing treatments with pulmonary following. Encourage incentive spirometer use at least 10 times every hour while awake. Review of systems: Constitutional: No reports of fatigue, fever, or chills Cardiovascular: No reports of chest pain or palpitations Respiratory: No reports of worsening shortness of breath or cough, continues with some wheezing GI: No reports of nausea, vomiting, or diarrhea, reports passing small gas and continued abdominal tenderness : No reports of dysuria or retention Neurovascular: reports of generalized weakness All medications have been reviewed PHYSICAL EXAMINATION: GENERAL: The patient is alert and oriented x3, currently sitting up in the chair, very flat affect. Well developed, thin built, elderly appearing HEENT: Pupils are round and equally reacting to light. EOMI. No scleral icterus. No conjunctival pallor. Normocephalic, atraumatic. No pharyngeal erythema. No thyromegaly. CARDIOVASCULAR: S1 and S2 muffled, irregular PULMONARY: Diminished breath sounds bilaterally with some faint expiratory wheezing and coarse rhonchi noted. No accessory muscle use noted ABDOMEN: Soft, thin, tender, nondistended, hypoactive bowel sounds. No palpable organomegaly. MUSCULOSKELETAL: No joint swelling or deformity. EXTREMITIES: No cyanosis, clubbing, or pedal edema. NEUROLOGICAL: Gross neurological examination did not reveal any focal deficits. Diffusely weak SKIN: No rashes. Assessment: Status post open extensive right hemicolectomy secondary to adenocarcinoma Former smoker with history of COPD COPD history, mild acute exacerbation Acute hypoxic respiratory failure secondary to mild acute COPD exacerbation Leukocytosis, possibly reactive and has normalized GERD History of atrial flutter, currently uncontrolled with elevated heart rates THC use GI prophylaxis DVT prophylaxis Full code Plan: Patient admitted under surgery status post open extended right hemicolectomy secondary to adenocarcinoma Patient is maintained on clear liquids and being advanced to full liquids per general surgery Epidural pain pump was removed and recommend to continue with pain management per general surgery. Recommend discontinuation of the Moses and increased activity as tolerated Possible PT/OT therapy if patient is weak once epidural pump has been removed Follow-up on repeat labs and replace electrolytes per protocol Monitor white count closely and monitor for any fevers, currently afebrile and will follow-up on labs in the a.m. to monitor white count. White count has normalized, hemoglobin is stable with no active bleeding although recommend monitoring closely and transfuse if 7 or less Chest x-ray showed some tiny pleural effusions and recommend discontinuing IV hydration and encouraging incentive spirometer use at least 10 times every hour while awake. Patient continuing to have some wheezing and pulmonary following has been started on IV steroids and will continue on breathing treatments as previously ordered. Patient does have a COPD history and reports to being a former smoker. Pulmonary had been consulted and following Patient's heart rate was elevated and EKG showing a flutter with history of maintained on Eliquis and metoprolol. Will give an additional dose and cardiology has been consulted per surgery for further evaluation. Encouraged increased activity as tolerated with sitting up in the chair more frequently and also continuing incentive spirometer use at least 10 times every hour while awake We will continue to follow with general surgery during hospitalization. Thank you kindly for this consultation. The impression and plan of care has been dictated as a scribe by Heydi Munoz, Nurse Practitioner as directed. Dr. Brian MD I have performed a history and examination and MDM of this patient, discussed the same with the dictator, and agree with the dictator's assessment and plan as written ,documented as a scribe. Based on total visit time, I have performed more than 50% of the visit. Objective - Vital Signs Vital signs: Vital Signs Temp 97.8 F 03/23/25 07:19 Pulse 146 H 03/23/25 07:19 Resp 18 03/23/25 07:19 BP 143/78 03/23/25 07:19 Pulse Ox 95 03/23/25 02:05 FiO2 Intake & Output 03/22/25 03/23/25 03/23/25 18:59 06:59 18:59 Intake Total 232.05 1000 Output Total 1000 3000 Balance -767.95 -1999 Intake: Intake, IV Titration 232.05 Amount Ropivacaine 250 mg 232.05 fentaNYL (PF) 1,250 mcg In Sodium Chloride 0.9% 175 ml @ Per Protocol EPIDURAL .Q0M PRN Rx#: [id number] Oral 1000 Output: Urine 1000 3000 Other: Voiding Method Indwelling Catheter - Labs CBC & Chem 7: 03/23/25 08:13 03/23/25 08:13 Labs: Abnormal Lab Results - Last 24 Hours (Table) 03/22/25 03/22/25 Range/Units 06:13 06:13 RBC 3.56 L (4.40-5.60) X 10*6/uL Hgb 7.9 L (13.0-17.0) g/dL Hct 26.4 L (39.6-50.0) % MCV 74.2 L (80.0-97.0) FL MCH 22.2 L (27.0-32.0) pg MCHC 29.9 L (32.0-37.0) g/dL RDW 16.6 H (11.5-14.5) % Neutrophils # 7.72 H (1.80-7.70) X 10*3/uL Lymphocytes # 0.58 L (0.90-5.00) X 10*3/uL Eosinophils # 0 L (0.04-0.35) X 10*3/uL Glucose 130 H (70-110) mg/dL
[2025-03-23] MEDS: METOPROLOL TARTRATE 50 MG TAB PO SCH (22:34)
[2025-03-24] MEDS: DILTIAZEM 125 MG in DEXTROSE 5% IN WATER 100 ML IV SCH (00:28)
[2025-03-24 06:12] LABS: Glucose,Whole Blood 157 mg/dL (70-110)
[2025-03-24 10:26] LABS: ALT 30 U/L (10-49); AST 24 U/L (14-35); Albumin 3.6 g/dL (3.8-4.9); Albumin/Globulin Ratio 1.64 Ratio (1.60-3.17); Alkaline Phosphatase 100 U/L (41-126); BUN/Creat Ratio 21.62 Ratio (12.00-20.00); Blood Urea Nitrogen 17.3 mg/dL (9.0-27.0); Carbon Dioxide 27.8 mmol/L (21.6-31.8); Chloride 97 mmol/L (96-109); Globulin 2.2 g/dL (1.6-3.3); Glucose 137 mg/dL (70-110); Potassium 4.2 mmol/L (3.5-5.5); Sodium 136 mmol/L (135-145); Total Bilirubin 0.5 mg/dL (0.3-1.2); Total Protein 5.8 g/dL (6.2-8.2)
[2025-03-24 10:51] LABS: Basophils # (A) 0.01 X 10*3/uL (0.00-0.10); Basophils % (A) 0.1 %; Eosinophils # (A) 0.01 X 10*3/uL (0.04-0.35); Eosinophils % (A) 0.1 %; HCT 33.1 % (39.6-50.0); HGB 9.7 g/dL (13.0-17.0); Lymphocytes # (A) 0.65 X 10*3/uL (0.90-5.00); Lymphocytes % (A) 5.5 %; MCH 21.7 pg (27.0-32.0); MCHC 29.3 g/dL (32.0-37.0); MCV 73.9 FL (80.0-97.0); Mean Platelet Volume 9.9 FL (9.5-12.2); Microcytosis (M) 2+ (None Seen); Monocytes # (A) 0.62 X 10*3/uL (0.20-1.00); Monocytes % (A) 5.2 %; NRBC Per 100 WBC 0.03 X 10*3/uL (0.00-0.01); Neutrophils # (A) 10.42 X 10*3/uL (1.80-7.70); Platelet Count 369 X 10*3/uL (140-440); RBC 4.48 X 10*6/uL (4.40-5.60); RDW 16.6 % (11.5-14.5); WBC 11.84 X 10*3/uL (4.50-10.00)
[2025-03-24] MEDS: METOPROLOL TARTRATE 25 MG TAB PO STA ×2 (11:29→22:39)
--- NOTE | 2025-03-24 11:49 | P.CRDCN ---
History of Present Illness History of present illness: HISTORY OF PRESENT ILLNESS: This is a 64-year-old male with a past medical history significant for atrial fibrillation, COPD, marijuana use, and former nicotine dependence. Patient follows in the office with Dr. Rodríguez. We have been asked to see the patient in consultation for atrial fibrillation. Patient examined at the bedside. Patient was recently diagnosed with colon adenocarcinoma and underwent open extended right hemicolectomy with Dr. Kwan on 03/19/2025. Patient went into A-fib with RVR and was started on IV Cardizem. This morning he remains in atrial fibrillation/flutter with controlled ventricular rates. He denies chest pain or pressure. He denies shortness of breath. He remains on IV Cardizem at 5 mg an hour. Vital signs are stable. DIAGNOSTICS: - EKG reveals atrial flutter with 2-1 conduction with RVR - Laboratory data: WBC 11.84. Hemoglobin 9.7. Platelet count 369. Sodium 136. Potassium 4.2. BUN 17.3. Creatinine 0.8. - Current home cardiac medications include Eliquis 5 mg twice a day, Cardizem CD 180 mg at night, metoprolol tartrate 50 mg daily. - Most recent echocardiogram obtained in February 2025 revealing ejection fraction 50 to 55% mild MR, mild TR - Patient underwent Lexiscan stress test in June 2020 which was negative for ischemia - Cardiac catheterization history: Unknown REVIEW OF SYSTEMS: At the time of my exam: CONSTITUTIONAL: Denies fever or chills. HEENT: Denies blurred vision, vision changes, or eye pain. Denies hemoptysis CARDIOVASCULAR: Denies chest pain. Denies orthopnea. Denies PND. Denies palpitations RESPIRATORY: Denies shortness of breath. GASTROINTESTINAL: Denies abdominal pain. Denies nausea or vomiting. HEMATOLOGIC: Denies bleeding disorders. GENITOURINARY: Denies any blood in urine. SKIN: Denies pruitis. Denies rash. PHYSICAL EXAM: VITAL SIGNS: Reviewed. GENERAL: Well-developed in no acute distress. HEENT: Head is normocephalic. Pupils are equal, round. Sclerae anicteric. Mucous membranes of the mouth are moist. Neck supple. No JVD or thyromegaly LUNGS: Respirations even and unlabored. Lungs essentially clear to auscultation bilaterally. HEART: Irregular rate and rhythm. S1 and S2 heard. ABDOMEN: Soft. Nondistended. Appropriate surgical tenderness EXTREMITIES: Normal range of motion. No clubbing or cyanosis. Peripheral pulses intact. No lower extremity edema NEUROLOGIC: Awake and alert. Oriented x 3. ASSESSMENT: Recently diagnosed colon adenocarcinoma, status post open extended right hemicolectomy Paroxysmal atrial fibrillation/typical atrial flutter with RVR, currently rate controlled History of COPD Marijuana use Former nicotine dependence History of GI bleeding PLAN: No need to repeat echocardiogram as this was performed in February 2025 Discontinue IV Cardizem. Resume oral Cardizem Continue metoprolol tartrate. Increase dosage to 75 mg twice a day Continue telemetry monitoring Patient is stable for discharge from a cardiac standpoint Patient to follow-up postdischarge in the office with Dr. Rodríguez Nurse practitioner note has been reviewed by physician. Signing provider agrees with the documented findings, assessment, and plan of care documented by MANAGER OF CORPORATE as a scribe. Past Medical History Past Medical History: Atrial Fibrillation, Atrial Flutter, Cancer (Colon adenocarcinoma), COPD Additional Past Medical History / Comment(s): iireg heart rythym. Pt sees Dr Emery for his heart. COPD, Ex smoker. History of Any Multi-Drug Resistant Organisms: None Reported Past Surgical History: Tonsillectomy Additional Past Surgical History / Comment(s): colonoscopy Past Anesthesia/Blood Transfusion Reactions: No Reported Reaction Additional Past Anesthesia/Blood Transfusion Reaction / Comment(s): no blood transfusions. Past Psychological History: No Psychological Hx Reported Smoking Status: Former smoker Past Alcohol Use History: None Reported Additional Past Alcohol Use History / Comment(s): quit smoking 6yrs ago 1 1/2 ppd Past Drug Use History: Marijuana Additional Drug Use History / Comment(s): Current daily marajuana smoker. - Past Family History Father Family Medical History: Myocardial Infarction ([place]) Additional Family Medical History / Comment(s): Father from heart attack at 65 years old. Mother Family Medical History: Cancer Additional Family Medical History / Comment(s): Ovarian cancer Medications and Allergies Home Medications Medication Instructions Recorded Confirmed Type Atorvastatin Calcium [Lipitor] 40 mg PO HS 06/04/23 03/19/25 History Albuterol Inhaler [Ventolin Hfa 2 puff INHALATION Q6H PRN 30 Days 06/16/23 03/14/25 Rx Inhaler] #1 each Fluticasone/Vilanterol [Breo 1 puff INHALATION RT-DAILY 02/20/25 03/19/25 History Ellipta 200-25 Mcg Inhaler] Apixaban [Eliquis] 5 mg PO BID 03/14/25 03/14/25 History Diltiazem Cd [Cardizem CD] 180 mg PO HS 03/14/25 03/19/25 History Magnesium 250 mg PO DAILY 03/14/25 03/14/25 History Metoprolol Tartrate [Lopressor] 50 mg PO DAILY 03/14/25 03/19/25 History Multi Vitamin Gummie 1 tab PO DAILY 03/14/25 03/14/25 History Potassium Chloride ER [K-Dur 10] 10 meq PO DAILY 03/14/25 03/19/25 History Albuterol Inhaler [Ventolin Hfa 2 puff INHALATION Q6HR PRN 03/19/25 03/19/25 History Inhaler] Allergies Allergy/AdvReac Type Severity Reaction Status Date / Time Penicillins Allergy hallucinations Verified 03/19/25 10:03 @ 6-7yrs Physical Exam Vitals: Vital Signs Temp Pulse Pulse Pulse Resp BP Pulse Ox 03/24/25 09:10 98.1 F 82 22 136/76 98 03/24/25 08:30 79 18 03/24/25 08:25 96 03/24/25 08:20 79 18 03/24/25 03:19 98.3 F 100 20 162/95 94 L 03/24/25 00:00 98.3 F 111 H 18 130/72 93 L 03/23/25 21:45 166 H 03/23/25 20:23 157 H 03/23/25 20:16 132 H 03/23/25 20:13 147 H 03/23/25 20:00 129 H 03/23/25 19:58 166 H 39 L 17 03/23/25 19:00 98.5 F 39 L 17 164/72 98 03/23/25 14:51 104 H 03/23/25 14:42 108 H 03/23/25 14:00 98.2 F 85 16 114/56 03/23/25 12:09 106 H Intake and Output 03/23/25 03/24/25 03/24/25 22:59 06:59 14:59 Intake Total 462.667 250 Balance 462.667 250 Intake: IV 10 10 Invasive Line 3 10 10 Intake, IV Titration 52.667 Amount Diltiazem 125 mg In 52.667 Dextrose 5% in Water 100 ml @ 5 MG/HR 5 mls/hr IV .Q24H [facility] Rx#:[id number] Oral 400 240 Other: Voiding Method Bedside Commode Bedside Commode Bedside Commode # Voids 1 1 # Bowel Movements 1 Weight 80.5 kg Results 03/24/25 06:08 03/24/25 06:08 Cardiac Enzymes 03/24/25 Range/Units 06:08 AST 24 (14-35) U/L CBC 03/24/25 Range/Units 06:08 WBC 11.84 H (4.50-10.00) X 10*3/uL RBC 4.48 (4.40-5.60) X 10*6/uL Hgb 9.7 L (13.0-17.0) g/dL Hct 33.1 L (39.6-50.0) % Plt Count 369 (140-440) X 10*3/uL Comprehensive Metabolic Panel 03/24/25 Range/Units 06:08 Sodium 136 (135-145) mmol/L Potassium 4.2 (3.5-5.5) mmol/L Chloride 97 (96-109) mmol/L Carbon Dioxide 27.8 (21.6-31.8) mmol/L BUN 17.3 (9.0-27.0) mg/dL Creatinine 0.8 (0.6-1.5) mg/dL Glucose 137 H (70-110) mg/dL Calcium 9.0 (8.7-10.3) mg/dL AST 24 (14-35) U/L ALT 30 (10-49) U/L Alkaline Phosphatase 100 (41-126) U/L Total Protein 5.8 L (6.2-8.2) g/dL Albumin 3.6 L (3.8-4.9) g/dL Current Medications Generic Name Dose Route Start Last Admin Trade Name Freq PRN Reason Stop Dose Admin Acetaminophen 650 mg 03/19/25 21:03 Acetaminophen Tab 325 Mg Tab PO Q6HR PRN Fever and/ or Pain Hydrocodone Bitart/Acetaminophen 1 each 03/20/25 13:13 03/23/25 17:24 Hydrocodone/Apap 7.5-325mg 1 Each Tab PO 1 each Q6H PRN Administration Pain Albuterol Sulfate 2.5 mg 03/19/25 15:28 03/21/25 09:56 Albuterol Nebulized 2.5 Mg/3 Ml INHALATION 2.5 mg RT-Q6H PRN Administration Shortness Of Breath Albuterol/Ipratropium 3 ml 03/21/25 12:00 03/24/25 08:20 Ipratropium-Albuterol 3 Ml Neb INHALATION 3 ml RT-QID MANAV Administration Apixaban 5 mg 03/23/25 10:15 03/24/25 09:11 Apixaban 5 Mg Tab PO 5 mg BID MANAV Administration Protocol Atorvastatin Calcium 40 mg 03/19/25 21:00 03/23/25 20:12 Atorvastatin 40 Mg Tab PO 40 mg HS MANAV Administration Calcium Carbonate/Glycine 500 mg 03/20/25 10:07 03/21/25 05:08 Calcium Carbonate 500 Mg Chewable PO 500 mg QID PRN Administration Heartburn Diltiazem HCl 180 mg 03/19/25 21:15 03/23/25 17:24 Diltiazem Cd 180 Mg Cap.Er.24h PO 180 mg HS MANAV Administration Diphenhydramine HCl 25 mg 03/19/25 11:18 Diphenhydramine 50 Mg/Ml 1 Ml Vial IVP Q6HR PRN Itching Lactated Ringer's 1,000 mls @ 75 mls/hr 03/20/25 11:30 03/23/25 23:15 Lactated Ringers IV 75 mls/hr .[id number] MANAV Administration Methylprednisolone Sodium Succinate 40 mg 03/21/25 12:00 03/24/25 03:16 Methylprednisolone Sod Succi 40 Mg/Ml 1 Ml Vial IV 40 mg Q8H MANAV Administration Metoclopramide HCl 10 mg 03/19/25 18:00 03/24/25 06:09 Metoclopramide 5 Mg/Ml 2 Ml Vial IVP 10 mg Q6HR MANAV Administration Metoprolol Tartrate 75 mg 03/24/25 21:00 Metoprolol Tartrate 25 Mg Tab PO BID MANAV Morphine Sulfate 2 mg 03/19/25 11:18 Morphine Sulfate 2 Mg/Ml Syringe IVP Q2HR PRN Pain/Discomfort Naloxone HCl 0.2 mg 03/19/25 11:18 Naloxone 0.4 Mg/Ml 1 Ml Vial IV Q2M PRN Opioid Reversal Ondansetron HCl 4 mg 03/19/25 11:18 03/20/25 10:07 Ondansetron 4 Mg/2 Ml Vial IVP 4 mg Q8HR PRN Administration Nausea And Vomiting Pantoprazole Sodium 40 mg 03/20/25 21:00 03/24/25 09:11 Pantoprazole 40 Mg/10 Ml Vial IVP 40 mg BID MANAV Administration Senna 8.6 mg 03/23/25 13:30 03/24/25 09:11 Sennosides 8.6 Mg Tab PO Not Given DAILY MANAV Intake and Output 03/23/25 03/24/25 03/24/25 22:59 06:59 14:59 Intake Total 462.667 250 Balance 462.667 250 Intake: IV 10 10 Invasive Line 3 10 10 Intake, IV Titration 52.667 Amount Diltiazem 125 mg In 52.667 Dextrose 5% in Water 100 ml @ 5 MG/HR 5 mls/hr IV .Q24H [facility] Rx#:[id number] Oral 400 240 Other: Voiding Method Bedside Commode Bedside Commode Bedside Commode # Voids 1 1 # Bowel Movements 1 Weight 80.5 kg 03/24/25 06:08 03/24/25 06:08
--- NOTE | 2025-03-24 13:26 | P.PN ---
Subjective Progress Note Date: 03/24/25 SURGICAL PROGRESS NOTE CHIEF COMPLAINT: Colon adenocarcinoma HISTORY OF PRESENT ILLNESS: Patient is postop day #5 status post open extended right hemicolectomy. Patient reports his pain is controlled. He reports having multiple bowel movements and passing a lot of flatus. He denies any nausea or vomiting. He was seen by cardiology for A-fib RVR. Cardiology has adjusted rate control medications. They have cleared him for discharge. Medicine service is recommending 1 more day due to adjustment of medications. Afebrile. Heart rate improved. WBC is up at 11.84 patient is on steroids. Hgb 9.7. Patient started on Eliquis yesterday PHYSICAL EXAM: VITAL SIGNS: Reviewed. GENERAL: Well-developed in no acute distress. HEENT: No sclera icterus. Extraocular movements grossly intact. Moist buccal mucosa. Head is atraumatic, normocephalic. ABDOMEN: Soft. Mildly distended. Incisional dressing pulled back. Incision is clean dry and intact. Minimal tenderness with palpation to incision site. NEUROLOGIC: Alert and oriented. Cranial nerves II through XII grossly intact. ASSESSMENT: 1. Colon adenocarcinoma status post open extended right hemicolectomy PLAN: -Advance diet to regular -Midline surgical dressing removed -Discontinue IV fluids -Anticipate possible discharge tomorrow -Encourage patient to increase activity level -Patient can shower -Repeat CBC in a.m. Physician Director Of Emergency Nursing note has been reviewed by physician. Signing provider agrees with the documented findings, assessment, and plan of care. Objective - Vital Signs Vital signs: Vital Signs Temp 98.1 F 03/24/25 09:10 Pulse 82 03/24/25 09:10 Resp 22 03/24/25 09:10 BP 136/76 03/24/25 09:10 Pulse Ox 98 03/24/25 09:10 FiO2 Intake & Output 03/23/25 03/24/25 03/24/25 18:59 06:59 18:59 Intake Total 462.667 250 Output Total 400 Balance -400 462.667 250 Weight 80.5 kg Intake: IV 10 10 Invasive Line 3 10 10 Intake, IV Titration 52.667 Amount Diltiazem 125 mg In 52.667 Dextrose 5% in Water 100 ml @ 5 MG/HR 5 mls/hr IV .Q24H [facility] Rx#:[id number] Oral 400 240 Output: Urine 400 Other: Voiding Method Bedside Commode Bedside Commode # Voids 1 1 # Bowel Movements 1 - Labs CBC & Chem 7: 03/24/25 06:08 03/24/25 06:08 Labs: Abnormal Lab Results - Last 24 Hours (Table) 03/24/25 03/24/25 03/24/25 Range/Units 06:08 06:08 06:10 WBC 11.84 H (4.50-10.00) X 10*3/uL Hgb 9.7 L (13.0-17.0) g/dL Hct 33.1 L (39.6-50.0) % MCV 73.9 L (80.0-97.0) FL MCH 21.7 L (27.0-32.0) pg MCHC 29.3 L (32.0-37.0) g/dL RDW 16.6 H (11.5-14.5) % Immature Gran # 0.13 H (0.00-0.04) X 10*3/uL Neutrophils # 10.42 H (1.80-7.70) X 10*3/uL Lymphocytes # 0.65 L (0.90-5.00) X 10*3/uL Eosinophils # 0.01 L (0.04-0.35) X 10*3/uL NRBC/100 WBC Diff 0.03 H (0.00-0.01) X 10*3/uL Microcytosis (manual) 2+ A (None Seen) BUN/Creatinine Ratio 21.62 H (12.00-20.00) Ratio Glucose 137 H (70-110) mg/dL POC Glucose (mg/dL) 157 H (70-110) mg/dL Total Protein 5.8 L (6.2-8.2) g/dL Albumin 3.6 L (3.8-4.9) g/dL
--- NOTE | 2025-03-24 13:29 | P.PN ---
Subjective Progress Note Date: 03/24/25 This is a 64-year-old male patient who is being seen for COPD. The patient was hospitalized for colon surgery. The patient had a recent diagnosis of colon adenocarcinoma and the patient underwent a open extended right hemicolectomy. Surgery was done on 03/19/2025 and the patient patient is currently on the medical floor on oxygen at 3 L/min nasal cannula. Using the incentive spirometer. The patient also has a epidural fentanyl for pain control. No flatus yet. Surgical abdominal wound is currently dry and intact. No fever. No nausea. No emesis. No abdominal distention. The white cell count is 14.6 with a hemoglobin of 8.8 and a platelet count of 373. Electrolytes are all within normal limits. From the pulmonary standpoint, the patient is well-known to me. The patient has COPD with an FEV1 of 45% of predicted. He has been maintained on Breo Ellipta on an outpatient basis in addition to albuterol HFA. He has some increased bronchospasm wheezing. Nevertheless, no dyspnea at rest. He also has history of paroxysmal A-fib, hypertension, hyperlipidemia and is a former smoker and he quit smoking approximately 6 years ago. No new complaints otherwise for now. On 03/22/2025, the patient is being seen for a follow-up. The patient is feeling better less bronchospastic and wheezy compared to yesterday. Sitting up in a chair. The bowel movement yesterday. He is taking popsicles. No significant abdominal pain. No nausea or vomiting. No chest pain. No emesis. He is on DuoNeb of chest. On Symbicort and is also on IV Solu-Medrol. White cell count of 8.7 with a hemoglobin 7.9 and platelet count of 201. Electrolytes all within normal limits remaining of 14 and a creatinine of 0.8. He is currently on 4 L of oxygen nasal cannula with a pulse ox of 91%. He is using the incentive spirometer. No other significant events overnight. 62,025, the patient is stable. 03/23/2025, the patient is stable. Denies having any specific complaints. Respiratory testing stable. He is advancing his diet. No fever. No chills. No nausea vomiting or abdominal pain. Blood work remains stable with a white cell count of 8.5 with a hemoglobin of 8.4 and a platelet count of 359. BUN 17 with a creatinine of 0.8 and sodium levels of 135. No other significant events overnight and general surgery remains on the case. Using incentive spirometer. Ambulating. Passing flatus The patient is seen today March 24, 2025 in follow-up on the selective care unit. He was transferred here from the regular medical floor after developing atrial fibrillation/flutter with rapid ventricular response, initiated on a Cardizem drip. He is currently sitting up in a chair at the bedside. Awake and alert in no acute distress. Maintaining good O2 saturations in the upper 90s on 3 L/min per nasal cannula. He is afebrile. Hemodynamically stable. He remains anticoagulated with Eliquis. Continued on DuoNeb inhalations, IV Solu-Medrol, albuterol. Lactated Ringer's at 75 mL/h. He continues to work well with the incentive spirometer. Advanced to a regular diet. Tolerating lunch well. Objective - Vital Signs Vital signs: Vital Signs Temp 98.1 F 03/24/25 09:10 Pulse 82 03/24/25 09:10 Resp 22 03/24/25 09:10 BP 136/76 03/24/25 09:10 Pulse Ox 98 03/24/25 09:10 FiO2 Intake & Output 03/23/25 03/24/25 03/24/25 18:59 06:59 18:59 Intake Total 462.667 250 Output Total 400 Balance -400 462.667 250 Weight 80.5 kg Intake: IV 10 10 Invasive Line 3 10 10 Intake, IV Titration 52.667 Amount Diltiazem 125 mg In 52.667 Dextrose 5% in Water 100 ml @ 5 MG/HR 5 mls/hr IV .Q24H [facility] Rx#:[id number] Oral 400 240 Output: Urine 400 Other: Voiding Method Bedside Commode Bedside Commode # Voids 1 1 # Bowel Movements 1 - Exam GENERAL EXAM: Alert, pleasant 64-year-old male, on 3 L nasal cannula, comfortable in no apparent distress. HEAD: Normocephalic. EYES: Normal reaction of pupils, equal size. NOSE: Clear with pink turbinates. THROAT: No erythema or exudates. NECK: No masses, no JVD. CHEST: No chest wall deformity. LUNGS: Equal air entry with no crackles, wheeze, rhonchi or dullness. CVS: S1 and S2 normal with no audible murmur, irregular rhythm. ABDOMEN: Surgical dressing dry and intact. No hepatosplenomegaly, normal bowel sounds, no guarding or rigidity. SPINE: No scoliosis or deformity SKIN: No rashes CENTRAL NERVOUS SYSTEM: No focal deficits, tone is normal in all 4 extremities. EXTREMITIES: There is no peripheral edema. No clubbing, no cyanosis. Peripheral pulses are intact. - Labs CBC & Chem 7: 03/24/25 06:08 03/24/25 06:08 Labs: Abnormal Lab Results - Last 24 Hours (Table) 03/24/25 03/24/25 03/24/25 Range/Units 06:08 06:08 06:10 WBC 11.84 H (4.50-10.00) X 10*3/uL Hgb 9.7 L (13.0-17.0) g/dL Hct 33.1 L (39.6-50.0) % MCV 73.9 L (80.0-97.0) FL MCH 21.7 L (27.0-32.0) pg MCHC 29.3 L (32.0-37.0) g/dL RDW 16.6 H (11.5-14.5) % Immature Gran # 0.13 H (0.00-0.04) X 10*3/uL Neutrophils # 10.42 H (1.80-7.70) X 10*3/uL Lymphocytes # 0.65 L (0.90-5.00) X 10*3/uL Eosinophils # 0.01 L (0.04-0.35) X 10*3/uL NRBC/100 WBC Diff 0.03 H (0.00-0.01) X 10*3/uL Microcytosis (manual) 2+ A (None Seen) BUN/Creatinine Ratio 21.62 H (12.00-20.00) Ratio Glucose 137 H (70-110) mg/dL POC Glucose (mg/dL) 157 H (70-110) mg/dL Total Protein 5.8 L (6.2-8.2) g/dL Albumin 3.6 L (3.8-4.9) g/dL Assessment and Plan Assessment: Chronic adenocarcinoma, status post open right hemicolectomy and surgery was done on 03/19/2025 Chronic anemia, likely secondary to above, hemoglobin remained stable. Noted the patient was having hematochezia prior to his colon surgery attributed to his underlying colon cancer Atrial fibrillation/flutter with RVR, initiated on a Cardizem drip Acute exacerbation of COPD, severe with an FEV1 of 45% predicted. Improved with the combination of bronchodilators and steroids Acute hypoxic respiratory failure secondary to above, currently on 3 L of O2 nasal cannula History of proximal atrial fibrillation/flutter, maintained on Eliquis Hypertension History of hyperlipidemia Former tobacco dependence, quit smoking cigarettes approximately 6 years ago Plan: The patient was seen and evaluated EKG, labs and medications reviewed Episode of atrial fibrillation/flutter with RVR Cardiology consult reviewed Tolerating a regular diet Titrate the FiO2 as tolerated May qualify for home oxygen Continue bronchodilators and steroids Remains on lactated Ringer's at 75 mL/h Anticoagulated with Eliquis Home once cleared by surgical services This patient was seen independently by the pulmonary nurse practitioner addressing pulmonary issues I have personally seen and examined the patient, performed the documentation and the assessment and plan as written. Number of minutes spent on the visit: 25 Dictation was produced using [employer] dictation software. Please excuse any grammatical, word or spelling errors.
[2025-03-24] MEDS: METOPROLOL TARTRATE 25 MG TAB PO SCH (20:27)
[2025-03-25 03:23] VITALS: TEMP 98.2
--- NOTE | 2025-03-25 05:18 | P.PN ---
Subjective Progress Note Date: 03/24/25 This is a 64-year-old male who was admitted under surgical services for: Adenocarcinoma and is postop open extended right hemicolectomy. Patient reports he follows with Dr. Randal Castro in the outpatient setting with a past medical history of atrial flutter, COPD, ex smoker, current marijuana use. Patient is postop and maintained on epidural pain pump continues to report significant pain and is complaining of some heartburn with Tums being added and will continue with Protonix IV twice daily. Patient reports is passing gas but has not had a bowel movement pulm occasions will be reviewed and resumed as appropriate and recommend breathing treatments and continued incentive spirometer use. Patient needs tighter blood pressure control as well. Labs reviewed with a white count of 11.05, hemoglobin 8.3, sodium 137, potassium 4.5, BUN 11.6, creatinine 1.06, magnesium is 1.8. Chest x-ray reports tiny bilateral pleural effusions with no acute pulmonary infiltrate. Again strongly stressed the importance of continued incentive spirometer use and increase activity as tolerated. Patient has been started on clear liquid diet per surgery and to be adjusted once small bowel function is noted. 03/21/2025 Patient is seen in follow-up today currently sitting up in the chair status post hemicolectomy reports to feeling a little improved today. Patient did have some increased shortness of breath requiring 3 L with some wheezing and pulmonary was contacted with acute COPD exacerbation. Patient encouraged to use incentive spirometer and is being started on IV steroids along with continued breathing treatments. Wean FiO2 as tolerated and encourage sitting up more frequently and using incentive spirometer at least 10 times every hour while awake. Patient is afebrile and denies any chest pain or worsening shortness of breath. Patient reports he passed a small amount of gas and a small smear of stool noted. Patient is continued on clear liquids and continued on epidural pump and will continue for now per surgery. Labs reveal a continued white count of 12.89 and hemoglobin is 9.6, sodium 135 with a potassium of 4.3, BUN is 15 and creatinine is 1.06. Recommend repeat labs in a.m. and monitor closely. Recommend PT/OT therapy evaluation 03/22/2025 Patient is seen and evaluated in follow-up currently sitting up in the chair continues with generalized weakness and would recommend PT/OT therapy evaluation and getting up more frequently. Patient does continue on pain pump and will continue per anesthesia for another 24 hours and continues with indwelling Moses catheter. Patient white count has normalized at 8.73 and hemoglobin is stable with no active bleeding although slightly lower at 7.9, platelets are 201. Sodium is 135 with a potassium of 4.2, BUN is 14.6 and creatinine has improved at 0.8. Magnesium is stable at 2.1. Weaning FiO2 as tolerated as patient does not wear oxygen outpatient and is maintained on 2 to 3 L. Encouraged incentive spirometer use at least 10 times every hour while awake. Patient to continue on clear liquids per general surgery until improved bowel function is noted. 03/23/2025 Patient is seen in follow-up today and heart rates elevated into the 1 teens and 120s does take metoprolol along with Cardizem daily which have been resumed recommend EKG as patient does have history of atrial fibrillation. Patient denies any chest pain or palpitations at this time. Patient is continued on 3 L and will continue to wean as tolerated. Epidural was accidentally pulled per patient and will continue with was placed on a Cardizem drip regimen and pain management per general surgery. Recommend discontinuing indwelling Moses cathet er and encouraging increase activity as tolerated. Patient is afebrile and white count has improved. Patient is continued on IV steroids along with breathing treatments with pulmonary following. Encourage incentive spirometer use at least 10 times every hour while awake. 03/24/2025 Patient is seen in follow-up today and has been transferred to [facility] and has been placed on a Cardizem drip for cardiology to evaluate for atrial flutter with RVR. Patient reports to feeling improved from yesterday and medications are being adjusted with cardiology on consult. Patient reports is having bowel move ments and tolerating diet is being slowly advanced per general surgery continue monitoring and appreciate cardiology input and recommendations. Patient is afebrile with no reported chest pain or worsening shortness of breath. Surgical site dressing is changed by general surgery at the bedside and melissa appear dry and intact with no drainage, redness noted. Patient continues with abdominal binder mild abdominal distention Review of systems: Constitutional: No reports of fatigue, fever, or chills Cardiovascular: No reports of chest pain or palpitations Respiratory: No reports of worsening shortness of breath or cough, continues with some faint expiratory wheezing GI: No reports of nausea, vomiting, or diarrhea, reports passing gas and having bowel movements : No reports of dysuria or retention Neurovascular: reports of generalized weakness All medications have been reviewed PHYSICAL EXAMINATION: GENERAL: The patient is alert and oriented x3, currently sitting up in bed. We ll developed, thin built, elderly appearing HEENT: Pupils are round and equally reacting to light. EOMI. No scleral icterus. No conjunctival pallor. Normocephalic, atraumatic. No pharyngeal erythema. No thyromegaly. CARDIOVASCULAR: S1 and S2 muffled, irregular PULMONARY: Diminished breath sounds bilaterally with some minimal faint expiratory wheezing and coarse rhonchi noted. No accessory muscle use noted ABDOMEN: Soft, tender, mildly distended, normoactive bowel sounds. No palpable organomegaly. MUSCULOSKELETAL: No joint swelling or deformity. EXTREMITIES: No cyanosis, clubbing, or pedal edema. NEUROLOGICAL: Gross neurological examination did not reveal any focal deficits. Diffusely weak SKIN: No rashes. Assessment: Status post open extensive right hemicolectomy secondary to adenocarcinoma Former smoker with history of COPD COPD history, mild acute exacerbation Acute hypoxic respiratory failure secondary to mild acute COPD exacerbation Leukocytosis, possibly reactive and has normalized GERD History of atrial flutter, currently uncontrolled with elevated heart rates and being placed on IV Cardizem THC use GI prophylaxis DVT prophylaxis Full code Plan: Patient admitted under surgery status post open extended right hemicolectomy secondary to adenocarcinoma Patient is maintained on full liquid and patient reports is having bowel movements and being advanced as tolerated per general surgery continue with pain management per general surgery. Moses has been discontinued and patient is voiding Recommend PT/OT therapy if patient is weak for evaluation Follow-up on repeat labs and replace electrolytes per protocol Monitor white count closely and monitor for any fevers, currently afebrile and will follow-up on labs in the a.m. to monitor white count. White count has normalized, hemoglobin is stable with no active bleeding although recommend monitoring closely and transfuse if 7 or less Continue to encourage incentive spirometer use at least 10 times every hour while awake. Patient continuing to have some wheezing and pulmonary following has been started on IV steroids and will continue on breathing treatments as previously ordered. Patient's heart rate was elevated and EKG showing a flutter with history of maintained on Eliquis and metoprolol. Was given an additional dose and cardiology has been consulted per surgery for further evaluation. Patient being moved to 3 S. and was placed on Cardizem drip Encouraged increased activity as tolerated with sitting up in the chair more frequently and also continuing incentive spirometer use at least 10 times every hour while awake We will continue to follow with general surgery during hospitalization. Thank you kindly for this consultation. The impression and plan of care has been dictated by Heydi Munoz, Nurse Practitioner as directed. Dr. Iglesia MD I have performed a history and examination and MDM of this patient, discussed the same with the dictator, and agree with the dictator's assessment and plan as written ,documented as a scribe. Based on total visit time, I have performed more than 50% of the visit. Objective - Vital Signs Vital signs: Vital Signs Temp 98.2 F 03/24/25 11:25 Pulse 110 H 03/24/25 16:10 Resp 18 03/24/25 16:10 BP 149/94 03/24/25 16:10 Pulse Ox 98 03/24/25 16:10 FiO2 Intake & Output 03/23/25 03/24/25 03/24/25 18:59 06:59 18:59 Intake Total 462.667 490 Output Total 400 950 Balance -400 462.667 -460 Weight 80.5 kg Intake: IV 10 10 Invasive Line 3 10 10 Intake, IV Titration 52.667 Amount Diltiazem 125 mg In 52.667 Dextrose 5% in Water 100 ml @ 5 MG/HR 5 mls/hr IV .Q24H [facility] Rx#:[id number] Oral 400 480 Output: Urine 400 950 Other: Voiding Method Bedside Commode Bedside Commode # Voids 1 1 1 # Bowel Movements 1 - Labs CBC & Chem 7: 03/24/25 06:08 03/24/25 06:08 Labs: Abnormal Lab Results - Last 24 Hours (Table) 03/24/25 03/24/25 03/24/25 Range/Units 06:08 06:08 06:10 WBC 11.84 H (4.50-10.00) X 10*3/uL Hgb 9.7 L (13.0-17.0) g/dL Hct 33.1 L (39.6-50.0) % MCV 73.9 L (80.0-97.0) FL MCH 21.7 L (27.0-32.0) pg MCHC 29.3 L (32.0-37.0) g/dL RDW 16.6 H (11.5-14.5) % Immature Gran # 0.13 H (0.00-0.04) X 10*3/uL Neutrophils # 10.42 H (1.80-7.70) X 10*3/uL Lymphocytes # 0.65 L (0.90-5.00) X 10*3/uL Eosinophils # 0.01 L (0.04-0.35) X 10*3/uL NRBC/100 WBC Diff 0.03 H (0.00-0.01) X 10*3/uL Microcytosis (manual) 2+ A (None Seen) BUN/Creatinine Ratio 21.62 H (12.00-20.00) Ratio Glucose 137 H (70-110) mg/dL POC Glucose (mg/dL) 157 H (70-110) mg/dL Total Protein 5.8 L (6.2-8.2) g/dL Albumin 3.6 L (3.8-4.9) g/dL
[2025-03-25 07:06] LABS: Basophils # (A) 0.01 10*3/uL (0.00-0.10); Basophils % (A) 0.1 %; HCT 32.8 % (39.6-50.0); HGB 9.9 g/dL (13.0-17.0); Lymphocytes # (A) 0.95 10*3/uL (0.90-5.00); Lymphocytes % (A) 7.8 %; MCHC 30.2 g/dL (32.0-37.0); MCV 72.7 fL (80.0-97.0); Mean Platelet Volume 9.9 fL (9.5-12.2); Monocytes # (A) 0.65 10*3/uL (0.20-1.00); Monocytes % (A) 5.3 %; Neutrophils % (A) 86.3 %; Platelet Count 484 10*3/uL (140-440); RBC 4.51 10*6/uL (4.40-5.60); RDW 16.4 % (11.5-14.5); WBC 12.17 10*3/uL (4.50-10.00)
[2025-03-25] MEDS: METOPROLOL TARTRATE 50 MG TAB PO SCH (07:50)
--- NOTE | 2025-03-25 11:22 | P.PN ---
Subjective Progress Note Date: 03/25/25 This is a 64-year-old male patient who is being seen for COPD. The patient was hospitalized for colon surgery. The patient had a recent diagnosis of colon adenocarcinoma and the patient underwent a open extended right hemicolectomy. Surgery was done on 03/19/2025 and the patient patient is currently on the medical floor on oxygen at 3 L/min nasal cannula. Using the incentive spirometer. The patient also has a epidural fentanyl for pain control. No flatus yet. Surgical abdominal wound is currently dry and intact. No fever. No nausea. No emesis. No abdominal distention. The white cell count is 14.6 with a hemoglobin of 8.8 and a platelet count of 373. Electrolytes are all within normal limits. From the pulmonary standpoint, the patient is well-known to me. The patient has COPD with an FEV1 of 45% of predicted. He has been maintained on Breo Ellipta on an outpatient basis in addition to albuterol HFA. He has some increased bronchospasm wheezing. Nevertheless, no dyspnea at rest. He also has history of paroxysmal A-fib, hypertension, hyperlipidemia and is a former smoker and he quit smoking approximately 6 years ago. No new complaints otherwise for now. On 03/22/2025, the patient is being seen for a follow-up. The patient is feeling better less bronchospastic and wheezy compared to yesterday. Sitting up in a chair. The bowel movement yesterday. He is taking popsicles. No significant abdominal pain. No nausea or vomiting. No chest pain. No emesis. He is on DuoNeb of chest. On Symbicort and is also on IV Solu-Medrol. White cell count of 8.7 with a hemoglobin 7.9 and platelet count of 201. Electrolytes all within normal limits remaining of 14 and a creatinine of 0.8. He is currently on 4 L of oxygen nasal cannula with a pulse ox of 91%. He is using the incentive spirometer. No other significant events overnight. 62,025, the patient is stable. 03/23/2025, the patient is stable. Denies having any specific complaints. Respiratory testing stable. He is advancing his diet. No fever. No chills. No nausea vomiting or abdominal pain. Blood work remains stable with a white cell count of 8.5 with a hemoglobin of 8.4 and a platelet count of 359. BUN 17 with a creatinine of 0.8 and sodium levels of 135. No other significant events overnight and general surgery remains on the case. Using incentive spirometer. Ambulating. Passing flatus The patient is seen today March 24, 2025 in follow-up on the selective care unit. He was transferred here from the regular medical floor after developing atrial fibrillation/flutter with rapid ventricular response, initiated on a Cardizem drip. He is currently sitting up in a chair at the bedside. Awake and alert in no acute distress. Maintaining good O2 saturations in the upper 90s on 3 L/min per nasal cannula. He is afebrile. Hemodynamically stable. He remains anticoagulated with Eliquis. Continued on DuoNeb inhalations, IV Solu-Medrol, albuterol. Lactated Ringer's at 75 mL/h. He continues to work well with the incentive spirometer. Advanced to a regular diet. Tolerating lunch well. The patient is seen today March 25, 2025 in follow-up on the selective care unit. He is currently sitting up at the bedside. Awake and alert in no acute distress. Denies any worsening shortness of breath, cough or congestion. He is maintaining good O2 saturations in the upper 90s on 2 L/min per nasal cannula. Has been afebrile. Occasional episodes of atrial fibrillation with RVR. Blood pressure stable. White count 12.1. Hemoglobin 9.9. Platelets 484. He remains on DuoNeb inhalations, Solu-Medrol. Anticoagulated with Eliquis. Continued on metoprolol and Cardizem. Objective - Vital Signs Vital signs: Vital Signs Temp 98.2 F 03/25/25 03:22 Pulse 68 03/25/25 09:33 Resp 18 03/25/25 07:43 BP 114/71 03/25/25 07:43 Pulse Ox 98 03/25/25 09:33 FiO2 Intake & Output 03/24/25 03/25/25 03/25/25 18:59 06:59 18:59 Intake Total 1470 10 0 Output Total 950 1100 Balance 520 -1090 0 Weight 78.2 kg Intake: IV 10 10 Invasive Line 3 10 10 Oral 1460 0 Output: Urine 950 Urine/Stool Mix 1100 Other: Voiding Method Bedside Commode Bedside Commode # Voids 1 - Exam GENERAL EXAM: Alert, pleasant 64-year-old male, sitting up at the bedside, on 2 L nasal cannula, comfortable in no apparent distress. HEAD: Normocephalic. EYES: Normal reaction of pupils, equal size. NOSE: Clear with pink turbinates. THROAT: No erythema or exudates. NECK: No masses, no JVD. CHEST: No chest wall deformity. LUNGS: Equal air entry with no crackles, wheeze, rhonchi or dullness. CVS: S1 and S2 normal with no audible murmur, irregular rhythm. ABDOMEN: Surgical dressing dry and intact. No hepatosplenomegaly, normal bowel sounds, no guarding or rigidity. SPINE: No scoliosis or deformity SKIN: No rashes CENTRAL NERVOUS SYSTEM: No focal deficits, tone is normal in all 4 extremities. EXTREMITIES: There is no peripheral edema. No clubbing, no cyanosis. Peripheral pulses are intact. - Labs CBC & Chem 7: 03/25/25 06:16 03/24/25 06:08 Labs: Abnormal Lab Results - Last 24 Hours (Table) 03/25/25 Range/Units 06:16 WBC 12.17 H (4.50-10.00) 10*3/uL Hgb 9.9 L D (13.0-17.0) g/dL Hct 32.8 L (39.6-50.0) % MCV 72.7 L (80.0-97.0) fL MCH 22.0 L (27.0-32.0) pg MCHC 30.2 L (32.0-37.0) g/dL Plt Count 484 H (140-440) 10*3/uL Immature Gran # 0.06 H (0.00-0.04) 10*3/uL Neutrophils # 10.50 H (1.80-7.70) 10*3/uL Eosinophils # 0.00 L (0.04-0.35) 10*3/uL Assessment and Plan Assessment: Chronic adenocarcinoma, status post open right hemicolectomy and surgery was done on 03/19/2025 Chronic anemia, likely secondary to above, hemoglobin remained stable. Noted the patient was having hematochezia prior to his colon surgery attributed to his underlying colon cancer Atrial fibrillation/flutter with RVR, remains on metoprolol and diltiazem Acute exacerbation of COPD, severe with an FEV1 of 45% predicted. Improved with the combination of bronchodilators and steroids Acute hypoxic respiratory failure secondary to above, currently on 3 L of O2 na dawit cannula History of proximal atrial fibrillation/flutter, maintained on Eliquis Hypertension History of hyperlipidemia Former tobacco dependence, quit smoking cigarettes approximately 6 years ago Plan: The patient was seen and evaluated Labs and medications reviewed Tolerating a regular diet Continue with the incentive spirometer Titrate down the FiO2 as tolerated May qualify for home oxygen Continue bronchodilators Discontinue Solu-Medrol Initiate a prednisone taper Remains on diltiazem and metoprolol Anticoagulated with Eliquis Home once cleared by cardiology and surgical services This patient was seen independently by the pulmonary nurse practitioner addressing pulmonary issues I have personally seen and examined the patient, performed the documentation and the assessment and plan as written. Number of minutes spent on the visit: 24 Dictation was produced using [employer] dictation software. Please excuse any grammatical, word or spelling errors.
--- NOTE | 2025-03-25 11:27 | P.PN ---
Subjective HISTORY OF PRESENT ILLNESS: This is a 64-year-old male with a past medical history significant for atrial fibrillation, COPD, marijuana use, and former nicotine dependence. Patient follows in the office with Dr. Rodríguez. We have been asked to see the patient in consultation for atrial fibrillation. Patient examined at the bedside. Patient was recently diagnosed with colon adenocarcinoma and underwent open extended right hemicolectomy with Dr. Kwan on 03/19/2025. Patient went into A-fib with RVR and was started on IV Cardizem. This morning he remains in atrial fibrillation/flutter with controlled ventricular rates. He denies chest pain or pressure. He denies shortness of breath. He remains on IV Cardizem at 5 mg an hour. Vital signs are stable. 03/25/2025 Patient seen and examined resting comfortably in bed in no acute distress. His A-fib continued to act up overnight. Heart rates got up to the 150s. Metoprolol was increased. Today after receiving morning dose of metoprolol tartrate 100 mg heart rate is in the 110-115 range. Blood pressure 114/71. PHYSICAL EXAM: VITAL SIGNS: Reviewed. GENERAL: Well-developed in no acute distress. HEENT: Head is normocephalic. Pupils are equal, round. Sclerae anicteric. Mucous membranes of the mouth are moist. Neck supple. No JVD or thyromegaly LUNGS: Respirations even and unlabored. Lungs essentially clear to auscultation bilaterally. HEART: Irregular rate and rhythm. S1 and S2 heard. ABDOMEN: Soft. Nondistended. Appropriate surgical tenderness EXTREMITIES: Normal range of motion. No clubbing or cyanosis. Peripheral pulses intact. No lower extremity edema NEUROLOGIC: Awake and alert. Oriented x 3. ASSESSMENT: Recently diagnosed colon adenocarcinoma, status post open extended right hemicolectomy Paroxysmal atrial fibrillation/typical atrial flutter with RVR, currently rate controlled History of COPD Marijuana use Former nicotine dependence History of GI bleeding PLAN: Patient is stable for discharge from a cardiac standpoint if heart rate maintains less than 100. Follow-up with Dr. Rodríguez upon discharge. Nurse practitioner note has been reviewed by physician. Signing provider agrees with the documented findings, assessment, and plan of care documented by [employer] as a scribe. Objective - Vital Signs Vital signs: Vital Signs Temp 98.2 F 03/25/25 03:22 Pulse 68 03/25/25 09:33 Resp 18 03/25/25 07:43 BP 114/71 03/25/25 07:43 Pulse Ox 98 03/25/25 09:33 FiO2 Intake & Output 03/24/25 03/25/25 03/25/25 18:59 06:59 18:59 Intake Total 1470 10 0 Output Total 950 1100 Balance 520 -1090 0 Weight 78.2 kg Intake: IV 10 10 Invasive Line 3 10 10 Oral 1460 0 Output: Urine 950 Urine/Stool Mix 1100 Other: Voiding Method Bedside Commode Bedside Commode # Voids 1 - Labs CBC & Chem 7: 03/25/25 06:16 03/24/25 06:08 Labs: Abnormal Lab Results - Last 24 Hours (Table) 03/25/25 Range/Units 06:16 WBC 12.17 H (4.50-10.00) 10*3/uL Hgb 9.9 L D (13.0-17.0) g/dL Hct 32.8 L (39.6-50.0) % MCV 72.7 L (80.0-97.0) fL MCH 22.0 L (27.0-32.0) pg MCHC 30.2 L (32.0-37.0) g/dL Plt Count 484 H (140-440) 10*3/uL Immature Gran # 0.06 H (0.00-0.04) 10*3/uL Neutrophils # 10.50 H (1.80-7.70) 10*3/uL Eosinophils # 0.00 L (0.04-0.35) 10*3/uL
[2025-03-25 12:15] VITALS: BP 111/66; RESP 16
--- NOTE | 2025-03-25 13:09 | XR ---
EXAMINATION TYPE: XR chest 1V portable DATE OF EXAM: 03/25/2025 1:05 PM COMPARISON: 03/20/2025 CLINICAL INDICATION: Male, 64 years old with history of shortness of breath, TECHNIQUE: XR chest 1V portable view(s) obtained. FINDINGS: The heart size is normal. The pulmonary vasculature is normal. The lungs are clear. IMPRESSION: 1. No acute pulmonary process. [facility], , 03/25/2025 1:07 PM
--- NOTE | 2025-03-25 14:02 | P.DS ---
Providers Date of admission: 03/19/25 09:23 Expected date of discharge: 03/25/25 Attending physician: Bryan Kwna DO Consults: 03/19/25 14:09 Consult Physician Routine Consulting Provider: Vishal Villegas Consult Reason/Comments: Med mgmt Do you want consulting provider notified?: Yes 03/21/25 11:32 Consult Physician Routine Consulting Provider: Nina Tristan Consult Reason/Comments: COPD Do you want consulting provider notified?: Yes 03/23/25 10:41 Consult Physician Routine Consulting Provider: Ryland Johns Consult Reason/Comments: AFib Do you want consulting provider notified?: Yes [facility] Course: Discharge diagnosis 1. Colon adenocarcinoma status post open extended right hemicolectomy 2. Leukocytosis likely reactive. Patient receiving steroids for his COPD. Hospital course This is a 64-year-old male with colon adenocarcinoma. He is status post open extended right hemicolectomy. Patient tolerated surgery well. His pain is controlled. He is tolerating diet. He has been up and ambulating. He is having bowel movements and flatus. Denies any difficulty urinating. He is afebrile. Patient has been cleared by cardiology and pulmonary service. Patient did have A-fib RVR during this admission medications were adjusted and heart rate is better controlled. Patient has been cleared by cardiology, pulmonary medicine service for discharge. Please refer to chart for any further details. [employer] note has been reviewed by physician. Signing provider agrees with the documented findings, assessment, and plan of care. Patient Condition at Discharge: Stable Plan - Discharge Summary Discharge Rx Participant: No New Discharge Prescriptions: New Metoprolol Tartrate [Lopressor] 100 mg PO BID 30 Days #120 tab predniSONE See Taper PO DIRECTED #30 tab Calcium Carbonate [Tums] 500 mg PO QID PRN tab PRN Reason: Heartburn Acetaminophen Tab [Tylenol] 650 mg PO Q6HR PRN tab PRN Reason: Fever And/ Or Pain Continue Albuterol Inhaler [Ventolin Hfa Inhaler] 2 puff INHALATION Q6H PRN 30 Days #1 each PRN Reason: Shortness Of Breath Apixaban [Eliquis] 5 mg PO BID Diltiazem Cd [Cardizem CD] 180 mg PO HS Magnesium 250 mg PO DAILY Potassium Chloride ER [K-Dur 10] 10 meq PO DAILY Albuterol Inhaler [Ventolin Hfa Inhaler] 2 puff INHALATION Q6HR PRN PRN Reason: Shortness Of Breath Atorvastatin Calcium [Lipitor] 40 mg PO HS Fluticasone/Vilanterol [Breo Ellipta 200-25 Mcg Inhaler] 1 puff INHALATION RT-DAILY Multi Vitamin Gummie 1 tab PO DAILY Discontinued Metoprolol Tartrate [Lopressor] 50 mg PO DAILY Discharge Medication List Atorvastatin Calcium [Lipitor] 40 mg PO HS 06/04/23 [History] Albuterol Inhaler [Ventolin Hfa Inhaler] 2 puff INHALATION Q6H PRN 30 Days #1 each 06/16/23 [Rx] Fluticasone/Vilanterol [Breo Ellipta 200-25 Mcg Inhaler] 1 puff INHALATION RT- DAILY 02/20/25 [History] Apixaban [Eliquis] 5 mg PO BID 03/14/25 [History] Diltiazem Cd [Cardizem CD] 180 mg PO HS 03/14/25 [History] Magnesium 250 mg PO DAILY 03/14/25 [History] Multi Vitamin Gummie 1 tab PO DAILY 03/14/25 [History] Potassium Chloride ER [K-Dur 10] 10 meq PO DAILY 03/14/25 [History] Albuterol Inhaler [Ventolin Hfa Inhaler] 2 puff INHALATION Q6HR PRN 03/19/25 [History] Acetaminophen Tab [Tylenol] 650 mg PO Q6HR PRN tab 03/25/25 [Rx] Calcium Carbonate [Tums] 500 mg PO QID PRN tab 03/25/25 [Rx] Metoprolol Tartrate [Lopressor] 100 mg PO BID 30 Days #120 tab 03/25/25 [Rx] predniSONE See Taper PO DIRECTED #30 tab 03/25/25 [Rx] Follow up Appointment(s)/Referral(s): Bakari Stuart MD [STAFF PHYSICIAN] - 1 Week Betsy Rodríguez MD [STAFF PHYSICIAN] - 1 Week Bryan Kwan DO [Doctor of Osteopathic Medicine] - 1 Week Activity/Diet/Wound Care/Special Instructions: No lifting over 10 pounds You may shower. No soaking or tub baths for 2 weeks Very light activity until you are reevaluated at your follow up appointment with your surgeon Discharge Disposition: HOME SELF-CARE
[2025-03-25 17:02] VITALS: PULSE 72
[2025-03-26] MEDS ORDERED: predniSONE 20 MG TAB PO SCH (09:00)
== END 2025-03-25 18:05 | disposition home or self-care (01) | DRG 329 ==
LOC: 2ORMAIN 09:23 → 4SSUR 14:06 → 3SCARD 03-23 23:42
PROVIDERS: ADMIT Surgery; ATTEND Surgery
PROC: 0DTF0ZZ Resection of Right Large Intestine, Open Approach (ICD-10-PCS; principal; 2025-03-19 13:15)
PROC: 0DBU0ZZ Excision of Omentum, Open Approach (ICD-10-PCS; principal; 2025-03-19 13:15)
DX: C18.4 Malignant neoplasm of transverse colon (principal); J96.01 Acute respiratory failure with hypoxia; J44.1 Chronic obstructive pulmonary disease with (acute) exacerbation; I10 Essential (primary) hypertension; D63.0 Anemia in neoplastic disease; I48.3 Typical atrial flutter; I48.0 Paroxysmal atrial fibrillation; R12 Heartburn; D72.829 Elevated white blood cell count, unspecified; E78.5 Hyperlipidemia, unspecified; K21.9 Gastro-esophageal reflux disease without esophagitis; Z79.01 Long term (current) use of anticoagulants; Z79.899 Other long term (current) drug therapy; Z99.81 Dependence on supplemental oxygen; Z87.891 Personal history of nicotine dependence; Z88.0 Allergy status to penicillin; Z28.310 Unvaccinated for COVID-19
CPT/HCPCS: 71045; 71046; 80048; 80053; 83735; 85025; 88305; 88309; 88331; 94640; 94760